=== PATIENT | male | born 1940 | race Caucasian/White ===

== ENCOUNTER 2017-09-03 15:53 | Emergency (ER) | payer OTHER ==
--- OUTSIDE RECORDS SUMMARY | 2017-09-03 15:55 | XMS REPORT | Clinical Summary ---
:1940 Author Organization [facility] Address [address] [place] [address] Care Team Providers Name Role Phone Asked, No Pcp Primary Care Provider Unavailable Allergies Active Allergy Reactions Severity Noted Date Comments Amoxicillin Shortness Of Breath High 04/21/2017 Aspirin Shortness Of Breath High 04/21/2017 Caffeine Shortness Of Breath High 04/21/2017 Cephalexin Anaphylaxis High 04/21/2017 Codeine Rash Low 04/21/2017 Colchicine Anaphylaxis High 04/21/2017 Dihydrocodeine Shortness Of Breath High 04/21/2017 Hydrocortisone Acetate Anaphylaxis High 04/21/2017 Ibuprofen Anaphylaxis High 04/21/2017 Iodine And Iodide Containing Swelling 04/21/2017 Products Sulfa (Sulfonamide Antibiotics) Itching 04/21/2017 Current Medications Prescription Sig. Disp. Refills Start Date End Date Status cyclobenzaprine Take 10 mg by Active (FLEXERIL) 10 mg mouth 3 tablet (three) times a day. tamsulosin (FLOMAX) Take 0.4 mg by Active 0.4 mg mouth daily. capsule,extended release 24hr potassium chloride Take 20 mEq by Active (KLOR-CON) 20 mEq mouth 2 (two) packet times a day. furosemide (LASIX) 40 Take 80 mg by Active mg tablet mouth 2 (two) times a day. pravastatin Take 40 mg by Active (PRAVACHOL) 40 MG mouth daily. tablet pantoprazole Take 40 mg by Active (PROTONIX) 40 MG EC mouth daily. tablet levothyroxine Take 137 mcg Active (SYNTHROID, LEVOXYL) by mouth every 137 mcg tablet morning. liraglutide (VICTOZA) Inject 0.6 mg Active 0.6 mg/0.1 mL (18 under the skin mg/3 mL) pen injector daily with breakfast. rivaroxaban (XARELTO) Take 15 mg by Active 15 mg tablet mouth daily. allopurinol Take 200 mg by Active (ZYLOPRIM) 100 MG mouth 2 (two) tablet times a day. glyBURIDE (DIABETA) 5 Take 10 mg by Discontinued MG tablet mouth 2 (two) 7 times a day. diltiazem CD Take 180 mg by Discontinued (CardIZEM CD) 180 MG mouth daily. 7 24 hr capsule traMADol (ULTRAM) 50 Take 0.5 20 tablet 0 04/27/2017 mg tablet tablets (25 mg 7 total) by mouth every 6 (six) hours as needed for moderate pain for up to 14 days. sacubitril-valsartan Take 1 tablet 60 tablet 0 04/27/2017 (ENTRESTO) 24-26 mg by mouth 2 8 tablet per tablet (two) times a day for 30 days. glipiZIDE (GLUCOTROL) Take 1 tablet 60 tablet 0 04/27/2017 2.5 MG 24 hr tablet (2.5 mg total) 8 by mouth 2 (two) times a day for 30 days. metoprolol succinate Take 1 tablet 30 tablet 0 04/28/2017 XL (TOPROL-XL) 50 mg (50 mg total) 8 24 hr tablet by mouth daily for 30 days. spironolactone Take 1 tablet 30 tablet 0 04/28/2017 (ALDACTONE) 50 MG (50 mg total) 8 tablet by mouth daily for 30 days. Active Problems Problem Noted Date Arrhythmia 04/21/2017 CHF (congestive heart failure) 04/21/2017 COPD (chronic obstructive pulmonary disease) 04/21/2017 Chronic kidney disease 04/21/2017 Type 2 diabetes mellitus 04/21/2017 Disease of thyroid gland 04/21/2017 Hypertension 04/21/2017 Ventricular arrhythmia 04/21/2017 BPH (benign prostatic hyperplasia) 04/15/2017 Ventricular tachycardia 04/15/2017 Cardiomegaly 04/15/2017 Encounters Date Type Specialty Care Team Description 06/16/2017 Procedure Pass Procedural Cardiology 06/08/2017 Procedure Pass Procedural Cardiology 04/22/2017 Anesthesia Event Procedural Andre Barton CRNA 04/22/2017 Procedure Pass Procedural Cardiology 04/22/2017 Surgery Procedural Kem Angeles aicd implant Cardiology MD Gene single dual bi vent [[id number] ([id number])] 04/21/2017 - Hospital Encounter Cardiology Lorne Ibarra 04/27/2017 MD Kelly after 09/02/2016 Family History Medical History Relation Name Comments Hypertension Father Stroke Mother Diabetes Sister Relation Name Status Comments Father Mother Alive Sister Alive Social History Tobacco Use Types Packs/Day Years Used Date Never Smoker Smokeless Tobacco: Never Used Tobacco Cessation: Counseling Given: No Alcohol Use Drinks/Week oz/Week Comments No Sex Assigned at Date Recorded Not on file Last Filed Vital Signs Vital Sign Reading Time Taken Blood Pressure 138/74 04/27/2017 11:55 AM TRAIN BRAKE OPERATOR Pulse 57 04/27/2017 11:55 AM TRAIN BRAKE OPERATOR Temperature 35.8 C (96.4 F) 04/27/2017 11:55 AM TRAIN BRAKE OPERATOR Respiratory Rate 18 04/27/2017 11:55 AM TRAIN BRAKE OPERATOR Oxygen Saturation 91% 04/27/2017 11:55 AM TRAIN BRAKE OPERATOR Inhaled Oxygen Concentration - - Weight 106 kg (234 lb) 04/27/2017 4:05 AM TRAIN BRAKE OPERATOR Height 172.7 cm (5' 8") 04/21/2017 5:45 PM TRAIN BRAKE OPERATOR Body Mass Index 35.58 04/27/2017 4:05 AM TRAIN BRAKE OPERATOR Plan of Treatment Health Maintenance Due Date Last Done Comments FOOT EXAM 02/07/1950 OPHTHALMOLOGY EXAM 02/07/1950 URINE MICROALBUMIN 02/07/1952 COLONOSCOPY 02/07/1992 ZOSTER VACCINE 2002 PNEUMOCOCCAL POLYSACCHARIDE VACCINE AGE 65 AND OVER 2007 PNEUMOCOCCAL-13 2007 INFLUENZA VACCINE 12/21/2017 Implants Implanted Type Area Manager Lvn Device Expiration Model / Identifier Date Serial / Lot Med Lead [id number] - [id number] - [id number] Cardiac Pacing N/A: [employer] CRM 01/05/2019 [id number] / Implanted: Qty: 1 on 04/22/2017 by Kem Angeles Jr., MD Leads or N/A [employer] [id number] / Electrodes or [id number] Accessories Visia Af Mri Surescan Vr Device - [id number] Defibrillator N/A: [employer] EDDY [id number] / Implanted: Qty: 1 on 04/22/2017 by Kem Angeles Jr., MD ICD Devices N/A [employer] / Procedures Procedure Name Priority Date/Time Associated Diagnosis Comments EP AICD IMPLANT Routine 04/22/2017 12:40 PM Results for this SINGLE DUAL BI VENT TRAIN BRAKE OPERATOR procedure are in the results section. after 09/02/2016 Results POC glucose (04/27/2017 11:56 AM)Only the most recent of19 resultswithin the time period is included. Component Value Ref Range POC glucose 164 (H) 65 - 99 mg/dL Comment: [facility] Notified RN Meter ID: [id number] Sales Donor Recruitment Representative: Ned Kimble Specimen Performing Laboratory [facility] DEPARTMENT OF PATHOLOGY AND GENOMIC MEDICINE [address] [place] [id number] XR Chest 1 Vw Portable (04/26/2017 5:26 PM)Only the most recent of3 resultswithin the time period is included. Specimen Performing Laboratory [facility] [address] [place] [address] Narrative EXAMINATION:XR CHEST 1 VW PORTABLE CLINICAL HISTORY:SHORTNESS OF BREATH COMPARISON:04/22/2017 IMPRESSION: Vascular congestion and pulmonary edema have improved. There is some residual edema or atelectasis in the left lower lobe. There may be small residual bilateral pleural effusions. Cardiomediastinal silhouette and bones are stable. Defibrillator is unchanged. [facility]-[id number] Procedure Note Interface, Radiology Results Incoming - 04/26/2017 5:32 PM TRAIN BRAKE OPERATOR EXAMINATION: XR CHEST 1 VW PORTABLE CLINICAL HISTORY: SHORTNESS OF BREATH COMPARISON: 04/22/2017 IMPRESSION: Vascular congestion and pulmonary edema have improved. There is some residual edema or atelectasis in the left lower lobe. There may be small residual bilateral pleural effusions. Cardiomediastinal silhouette and bones are stable. Defibrillator is unchanged. [facility]-[id number] CBC with platelet and differential (04/24/2017 4:30 AM)Only the most recent of2 resultswithin the time period is included. Component Value Ref Range WBC 10.80 4.50 - 11.00 k/uL RBC 4.45 4.40 - 6.00 m/uL HGB 13.3 (L) 14.0 - 18.0 g/dL HCT 40.1 (L) 41.0 - 51.0 % MCV 90.1 82.0 - 100.0 fL MCH 29.9 27.0 - 34.0 pg MCHC 33.2 31.0 - 37.0 g/dL RDW - SD 45.3 37.0 - 55.0 fL MPV 9.9 8.8 - 13.2 fL Platelet count 229 150 - 400 k/uL Nucleated RBC 0.00 /100 WBC Neutrophils 76.6 (H) 39.0 - 69.0 % Lymphocytes 8.7 (L) 25.0 - 45.0 % Monocytes 11.2 (H) 0.0 - 10.0 % Eosinophils 2.6 0.0 - 5.0 % Basophils 0.4 0.0 - 1.0 % Immature granulocytes 0.5Comment: "Immature granulocytes" 0.0 - 1.0 % (promyelocytes, myelocytes, metamyelocytes) Specimen Performing Laboratory Blood [facility] DEPARTMENT OF PATHOLOGY AND GENOMIC MEDICINE [address] [place] [id number] ECG 12 lead (04/24/2017 4:16 AM) Component Value Ref Range Ventricular rate 79 Atrial rate 50 QRSD interval 104 QT interval 432 QTC interval 495 QRS axis 1 -55 T wave axis 86 EKG impression Atrial fibrillation with premature ventricular or aberrantly conducted complexes-Left anterior fascicular block-Prolonged QT-Abnormal ECG-- Specimen Performing Laboratory [facility] [address] [place] [address] Estimated GFR (04/24/2017 3:49 AM)Only the most recent of3 resultswithin the time period is included. Component Value Ref Range GFR Non Af Amer 37 (A) mL/min/1.73 m2 GFR Af Amer 45 (A) mL/min/1.73 m2 Comment: Chronic kidney disease: <60 mL/min/1.73m2 Kidney failure: <15 mL/min/1.73m2 The estimated GFR is calculated from the IDMS-traceable Modification of Diet in Renal Disease Equation. The accuracy of the calculation is poor when the creatinine is normal. Calculated values >90 mL/min/1.73m2 are not reported. This equation has not been validated in children (<18 years), women, the elderly (>70 years), or ethnic groups other than Caucasians and Americans. Specimen Performing Laboratory Plasma specimen [facility] DEPARTMENT OF PATHOLOGY AND GENOMIC MEDICINE [address] [place] [address] Phosphorus level (04/24/2017 3:49 AM)Only the most recent of2 resultswithin the time period is included. Component Value Ref Range Phosphorus 2.5 2.4 - 4.5 mg/dL Specimen Performing Laboratory Plasma specimen [facility] DEPARTMENT OF PATHOLOGY AND [address] [address] Magnesium level (04/24/2017 3:49 AM)Only the most recent of2 resultswithin the time period is included. Component Value Ref Range Magnesium 1.7 1.6 - 2.4 mg/dL Specimen Performing Laboratory Plasma specimen [facility] DEPARTMENT PATHOLOGY AND [address] [address] Basic metabolic panel (04/24/2017 3:49 AM)Only the most recent of2 resultswithin the time period is included. Component Value Ref Range Sodium 136 135 - 148 mEq/L Potassium 4.0 3.5 - 5.0 mEq/L Chloride 94 (L) 98 - 112 mEq/L CO2 29 24 - 31 mEq/L Anion gap 13 7 - 15 mEq/L Comment: Starting from August , anion gap calculation no longer incorporates potassium. Please note the change. BUN 31 (H) 8 - 23 mg/dL Creatinine 1.8 (H) 0.7 - 1.2 mg/dL Glucose 158 (H) 65 - 99 mg/dL Calcium 10.2 8.8 - 10.2 mg/dL Specimen Performing Laboratory Plasma specimen [facility] DEPARTMENT OF PATHOLOGY AND [address] [address] Potassium level (04/23/2017 12:33 PM) Component Value Ref Range Potassium 3.7 3.5 - 5.0 mEq/L Specimen Performing Laboratory Plasma specimen [facility] DEPARTMENT OF PATHOLOGY AND [facility] MEDICINE [address] [place] [address] B natriuretic peptide (04/23/2017 11:00 AM)Only the most recent of2 resultswithin the time period is included. Component Value Ref Range BNP 183 (H) 0 - 100 pg/mL Specimen Performing Laboratory Blood [facility] DEPARTMENT OF PATHOLOGY AND [facility] MEDICINE [address] [place] [address] Narrative RECOLLECT FOR K NOTIFIED LUCIA MONTERO AT106/24/2016 1204 BY AU ECG Pre/Post Op-Tomorrow (04/23/2017 8:04 AM)Only the most recent of2 resultswithin the time period is included. Component Value Ref Range Ventricular rate 71 Atrial rate 127 QRSD interval 104 QT interval 430 QTC interval 467 QRS axis 1 -43 T wave axis 42 EKG impression Atrial fibrillation-Left axis deviation-Abnormal ECG-In automated comparison with ECG of 22-APR-2017 11:01,-Previous ECG has undetermined rhythm, needs review-Nonspecific T wave abnormality no longer ev ident in Inferior leads- Specimen Performing Laboratory [facility] [address] [place] [address] Cv electrophysiology procedure (04/22/2017 12:40 PM) Specimen Performing Laboratory [facility] [address] [place] [address] Narrative TITLE: Single chamber defibrillator. 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 3.Obesity. 4.Chronic obstructive pulmonary disease. 5.Chronic atrial fibrillation. 6.Diabetes mellitus. POSTOPERATIVE DIAGNOSES: 1.Sustained monomorphic ventricular tachycardia. 2.Nonischemic dilated cardiomyopathy. 3.Obesity. 4.Chronic obstructive pulmonary disease. 5.Chronic atrial fibrillation. 6.Diabetes mellitus. PROCEDURE PERFORMED: 1.Monitored anesthesia care. 2.Single chamber defibrillator placement. BRIEF HISTORY AND CLINICAL BACKGROUND: This is a 77-year-old man who was admitted to [facility] for sustained wide complex tachycardia that appeared to be ventricular in origin. He was treated with intravenous amiodarone.He underwent heart catheterization showing ectatic coronary arteries, but no obstructive coronary disease. Ejection fraction by echo was 20%.He was transferred yesterday for defibrillator system implantation.The VT has a cycle length of 300 msec and has a QS complex in lead V1 and a RS in lead V6 with a left axis deviation.The patient was taking Xarelto, but had not received this since his hospitalization in [place].After a thoughtful consideration of his options understanding he could take that a defibrillator was considered optimal therapy he has consented to this as opposed to taking oral medications like amiodarone. PROCEDURE: The patient was taken to the Electrophysiology Laboratory in the postabsorptive-nonsedated state and was placed on a fluoroscopy table. The position of the external defibrillation pads over the heart was confirmed using fluoroscopy. The chest was prepped and draped in the usual sterile fashion. Local anesthesia was achieved with 1% lidocaine.Intravenous conscious sedation using intravenous Versed, Fentanyl, and Phenergan, was provided as necessary. An upper extremity venogram was performed, and during the venogram, access to the axillary vein was achieved.A soft-tipped J-wire was advanced into the venous system.A pocket was then made below the plane of the pectoralis fascia using a scalpel, cautery, and blunt dissection.Using the [id number]-jmpu technique and an introducer sheath, a defibrillation lead was advanced to the right ventricular apex and the fixation mechanism was deployed. Pacing and sensing thresholds were then evaluated.After they were found to be adequate, maximum output pacing was performed to test for diaphragmatic stimulation, and none was seen. The lead was sutured to the pectoral muscle using 0 Ethibond sutures tied over the lead collar.The pocket was visually, manually, and radiographically, inspected to ensure there were no gauze or sponges in the pocket.The pocket was then washed using an antibiotic solution. After washing was complete, gloves were changed and fresh sterile drapes were placed and a defibrillator was unpacked.The defibrillator was then attached to the lead and the set screws were tightened and the leads were gently pulled upon to ensure they were affixed within the device header.The generator and lead slack were placed into the pocket.The device was sutured to the muscle using an 0-ethibond suture through the suture hole in the header. Defibrillation threshold testing was then performed.After the Defibrillation Safety Threshold was found to be satisfactory, the incision was closed in layers using running 0-vicryl suture for 2 layers followed by jim and skin adhesive. COMPLICATIONS: None. FINDINGS: 1.Estimated blood loss less than 10 mL. 2.The right ventricular apical defibrillation lead is a Medtronic [id number], 62 cm, serial #[id number] vector, measured R-wave 6 millivolts, pacing threshold 0.7 volt, impedance 546 ohms. 3.Defibrillator is a Medtronic Visia model JRKG5S2, serial number [id number]. 4.Defibrillation Safety threshold testing was not performed because the patient has chronic atrial fibrillation and has been off therapeutic anticoagulation for approximately 8 days. CONCLUSIONS: Successful ICD insertion. RECOMMENDATIONS: Initiate Eliquis at the time of discharge tomorrow and bring back as an outpatient for DFT testing in 4 to 6 weeks. Partial thromboplastin time, activated (04/22/2017 4:22 AM) Component Value Ref Range PTT 40.8 (H) 23.0 - 36.0 sec Comment: PTT therapeutic range for unfractionated heparin is 61.0-112.0 seconds which corresponds to Anti-Xa 0.3-0.7 U/ml. Specimen Performing Laboratory Blood [facility] DEPARTMENT OF PATHOLOGY AND [facility] MEDICINE [address] [place] [address] Prothrombin time with INR (04/22/2017 4:22 AM) Component Value Ref Range Prothrombin time 17.8 (H) 12.0 - 15.0 sec INR 1.4 Comment: The International Normalized Ratio (INR) is a therapeutic monitoring tool for patients who are stable on oral anticoagulant therapy. An INR of 2.0-3.0 is suggested for deep vein thrombosis/pulmonary embolism. Specimen Performing Laboratory Blood [facility] DEPARTMENT OF PATHOLOGY AND [facility] MEDICINE [address] [place] [address] Thyroid stimulating hormone (04/22/2017 4:22 AM) Component Value Ref Range TSH 2.49 0.27 - 4.20 uIU/mL Specimen Performing Laboratory Plasma specimen [facility] DEPARTMENT OF PATHOLOGY AND [facility] MEDICINE [address] [place] [address] Prealbumin level (04/22/2017 4:22 AM) Component Value Ref Range Prealbumin 12 (L) 16 - 32 mg/dL Specimen Performing Laboratory Serum [facility] DEPARTMENT OF PATHOLOGY AND [facility] MEDICINE [address] [place] [address] Comprehensive metabolic panel (04/22/2017 4:22 AM) Component Value Ref Range Sodium 137 135 - 148 mEq/L Potassium 3.8 3.5 - 5.0 mEq/L Chloride 94 (L) 98 - 112 mEq/L CO2 26 24 - 31 mEq/L Anion gap 17 (H) 7 - 15 mEq/L Comment: Starting from August , anion gap calculation no longer incorporates potassium. Please note the change. BUN 33 (H) 8 - 23 mg/dL Creatinine 1.8 (H) 0.7 - 1.2 mg/dL Glucose 148 (H) 65 - 99 mg/dL Calcium 10.1 8.8 - 10.2 mg/dL Protein 6.7 6.3 - 8.3 g/dL Comment: 4.6-7.0 g/dL 1 week 4.4-7.6 g/dL 7 months-1year5.1-7.3 g/dL 1-2 years5.6-7.5 g/dL >3 years6.0-8.0 g/dL 18-150 6.3-8.3 g/dL Albumin 2.6 (L) 3.5 - 5.0 g/dL A/G ratio 0.6 (L) 0.7 - 3.8 Alkaline phosphatase 63 40 - 129 U/L AST 13 10 - 50 U/L ALT 21 5 - 50 U/L Total bilirubin 0.9 0.0 - 1.2 mg/dL Specimen Performing Laboratory Plasma specimen [facility] DEPARTMENT OF PATHOLOGY AND GENOMIC MEDICINE [address] [place] [address] XR Chest 2 Vw (04/21/2017 10:13 PM) Specimen Performing Laboratory [facility] [address] [place] [address] Narrative EXAMINATION:XR CHEST 2 VW CLINICAL HISTORY:Cardiomyopathy COMPARISON:To previous study from 04/21/2017 IMPRESSION: Cardiac mediastinal silhouette is prominent and pulmonary vessels are prominent. [facility]-[id number] Procedure Note Interface, Radiology Results Incoming - 04/21/2017 10:24 PM TRAIN BRAKE OPERATOR EXAMINATION: XR CHEST 2 VW CLINICAL HISTORY: Cardiomyopathy COMPARISON: To previous study from 04/21/2017 IMPRESSION: Cardiac mediastinal silhouette is prominent and pulmonary vessels are prominent. [facility]-[id number] after 09/02/2016 Insurance Payer Benefit Plan / Group Subscriber ID Type Phone Address [employer]NA MEDICARE AETNA MEDICARE HMO/PPO [facility] xxxxxxxx HMO Home: Katrina Langford y [phone] [address]
[2017-09-03] MEDS ORDERED: ACETAMINOPHEN 500 MG TAB ONE (16:19)
[2017-09-03] MEDS ORDERED: LIDOCAINE 1% MPF 5 ML VIAL ONE (16:19)
[2017-09-03] MEDS ORDERED: TETANUS & DIPHTHERIA TOX,ADULT 0.5 ML VIAL ONE (16:20)
--- NOTE | 2017-09-03 16:40 | ER ---
Nurse's Notes [facility] Name: Ketan Feng Age: 77 yrs Sex: Male : 1940 Arrival Date: 09/03/2017 Time: 15:57 Bed 19 Private MD: Diagnosis: Laceration without foreign body of lip Presentation: 09/03 16:02 Presenting complaint: Patient states: I was holding the dog in my lap and it got scared la1 and tried to throw his head back and hit me in the top lip with his head. laceration noted to top lip, bleeding controlled. Transition of care: patient was not received from another setting of care. Complicating Factors: There are no complicating factors for this patient. Onset of symptoms was September 03, 2017. Care prior to arrival: None. 16:02 Method Of Arrival: Wheelchair la1 16:02 Acuity: GARY 4 la1 Historical: - Allergies: 16:03 Augmentin; la1 16:03 Codeine; la1 16:03 Iodine; la1 16:03 Phenobarbital; la1 16:03 Sulfa (Sulfonamide Antibiotics); la1 16:03 Synalgos-DC; la1 - PMHx: 16:03 Atrial Fib; CHF; COPD; Gout; High Cholesterol; Kidney Failure Stage III; urinary la1 retention; - Immunization history:: Adult Immunizations up to date. - Social history:: Smoking status: Patient/guardian denies using tobacco. Screenin:41 Abuse screen: Denies threats or abuse. Nutritional screening: No deficits noted. em Tuberculosis screening: No symptoms or risk factors identified. Fall Risk None identified. Assessment: 16:14 General: Appears in no apparent distress. comfortable, Behavior is calm, cooperative. em General: Reports dogs head hit him in the right upper lip, laceration noted, bleeding controlled. Pain: Complains of pain in upper vermilion border. Neuro: Level of Consciousness is awake, alert, obeys commands, Oriented to person, place, time, situation. Cardiovascular: Capillary refill < 3 seconds Patient's skin is warm and dry. Respiratory: Airway is patent Respiratory effort is even, unlabored, Respiratory pattern is regular, symmetrical. GI: Abdomen is round non-distended. : No signs and/or symptoms were reported regarding the genitourinary system. EENT: Oral mucosa is moist. Derm: Skin is intact, Skin is pink, warm \T\ dry. Musculoskeletal: Range of motion: intact in all extremities. Injury Description: Laceration sustained to upper vermilion border is clean, 0.5 to 2.5 cm long, not bleeding, was sustained 30-60 minutes ago. is bleeding a small amount. 16:29 Reassessment: I agree with above assessment by Doron Sandy LVN. iw Vital Signs: 16:03 BP 150 / 100; Pulse 89; Resp 15; Temp 98.4; Pulse Ox 100% on R/A; Weight 105.69 kg; la1 Height 5 ft. 8 in. (172.72 cm); 16:03 Body Mass Index 35.43 (105.69 kg, 172.72 cm) la1 ED Course: 15:57 Patient arrived in ED. tw3 16:03 Triage completed. la1 16:04 Lucila Aguilera FNP-C [facility]. kb 16:04 Myles Wu MD is Attending Physician. kb 16:04 Arm band placed on left wrist. la1 16:05 Doron Sandy LVN is Primary Nurse. em 16:41 Patient has correct armband on for positive identification. Bed in low position. Call em light in reach. Side rails up X2. Adult w/ patient. 16:41 Assist provider with laceration repair on upper vermilion border that was 2.5 cm. or em less using sutures. Set up tray. Performed by Lucila DE LEON Patient tolerated well. Patient did not have IV access during this emergency room visit. Administered Medications: 16:35 Drug: Lidocaine (1 %) 1 vials {Note: administered by BLAINE Gaytan.} Volume: 5 ml; Route: em Infiltration; 16:52 Follow up: Response: No adverse reaction em 16:51 Drug: Tetanus-Diphtheria Toxoid Adult 0.5 ml {Elastic Yarn Twister: [employer] Exp: em 12/23/2019. Lot #: [id number]. } Route: IM; Site: right deltoid; 16:52 Follow up: Response: Medication administered at discharge. em Outcome: 16:40 Discharge ordered by . kb 17:00 Discharged to home ambulatory. em 17:00 Condition: good 17:00 Discharge instructions given to patient, Instructed on discharge instructions, follow up and referral plans. Demonstrated understanding of instructions, follow-up care. 17:04 Patient left the ED. iw Signatures: Lucila Aguilera, LO-C REDUCTION FURNACE OPERATOR-Doron Benavides, KEREN BACK UP MACHINE OPERATOR Yamileth Xiao, RN ASIA iw Rickey Pang RN RN la1 Hector, Juliette tw3 Corrections: (The following items were deleted from the chart) 16:06 16:02 Presenting complaint: Patient states: I was holding the dog in my lap and it got la1 scared and tried to throw his head back and hit me in the top hip with his head. laceration noted to top lip, bleeding controlled la1 09/04 07:27 04 16:41 No provider procedures requiring assistance completed. em em
--- NOTE | 2017-09-03 16:40 | EDPHYS ---
Physician Documentation [facility] Name: Ketan Feng Age: 77 yrs Sex: Male : 1940 Arrival Date: 09/03/2017 Time: 15:57 Bed 19 Private MD: ED Physician Myles Wu HPI: 09/03 16:12 This 77 yrs old Male presents to ER via Wheelchair with complaints of kb Laceration To Lip. 16:12 The patient has a laceration related to: playing with dog, dog threw his head back and kb hit pt in the mouth occurred at home, and there are no complicating factors. The injury was accidental. The laceration(s) is(are) located on the upper vermilion border. Onset: The symptoms/episode began/occurred just prior to arrival. Associated signs and symptoms: The patient has no apparent associated signs or symptoms. The patient has not experienced similar symptoms in the past. The patient has not recently seen a physician. Historical: - Allergies: 16:03 Augmentin; la1 16:03 Codeine; la1 16:03 Iodine; la1 16:03 Phenobarbital; la1 16:03 Sulfa (Sulfonamide Antibiotics); la1 16:03 Synalgos-DC; la1 - PMHx: 16:03 Atrial Fib; CHF; COPD; Gout; High Cholesterol; Kidney Failure Stage III; urinary la1 retention; - Immunization history:: Adult Immunizations up to date. - Social history:: Smoking status: Patient/guardian denies using tobacco. ROS: 16:10 Constitutional: Negative for fever, chills, and weight loss, Cardiovascular: Negative kb for chest pain, palpitations, and edema, Respiratory: Negative for shortness of breath, cough, wheezing, and pleuritic chest pain, Abdomen/GI: Negative for abdominal pain, nausea, vomiting, diarrhea, and constipation, MS/Extremity: Negative for injury and deformity, Neuro: Negative for headache, weakness, numbness, tingling, and seizure. 16:10 Skin: Positive for laceration(s), of the upper vermilion border. Exam: 16:10 Constitutional: This is a well developed, well nourished patient who is awake, alert, kb and in no acute distress. Chest/axilla: Normal chest wall appearance and motion. Nontender with no deformity. No lesions are appreciated. Cardiovascular: Regular rate and rhythm with a normal S1 and S2. No gallops, murmurs, or rubs. Normal PMI, no JVD. No pulse deficits. Respiratory: Lungs have equal breath sounds bilaterally, clear to auscultation and percussion. No rales, rhonchi or wheezes noted. No increased work of breathing, no retractions or nasal flaring. Abdomen/GI: Soft, non-tender, with normal bowel sounds. No distension or tympany. No guarding or rebound. No evidence of tenderness throughout. MS/ Extremity: Pulses equal, no cyanosis. Neurovascular intact. Full, normal range of motion. Neuro: Awake and alert, GCS 15, oriented to person, place, time, and situation. Cranial nerves II-XII grossly intact. Motor strength 5/5 in all extremities. Sensory grossly intact. Cerebellar exam normal. Normal gait. 16:10 Head/face: Noted is no obvious of injury or deformity except a laceration(s), that is superficial, 4 cm(s), of the upper vermilion border. Vital Signs: 16:03 BP 150 / 100; Pulse 89; Resp 15; Temp 98.4; Pulse Ox 100% on R/A; Weight 105.69 kg; la1 Height 5 ft. 8 in. (172.72 cm); 16:03 Body Mass Index 35.43 (105.69 kg, 172.72 cm) la1 Laceration: 16:38 Wound Repair of 3cm ( 1.2in ) subcutaneous laceration to upper vermilion border. Linear kb shaped.. Distal neuro/vascular/tendon intact. Anesthesia: Wound infiltrated with 2.5 mls of 1% lidocaine. Wound prep: Moderate cleansing by me, Wound irrigation with saline by me. Skin closed with 4 6-0 Prolene using interrupted sutures and sterile technique. Dressed with Neosporin. Patient tolerated well. MDM: 16:04 Patient medically screened. kb 16:10 Data reviewed: vital signs, nurses notes. Data interpreted: Pulse oximetry: on room air kb is 100 %. Interpretation: normal. Counseling: I had a detailed discussion with the patient and/or guardian regarding: the historical points, exam findings, and any diagnostic results supporting the discharge/admit diagnosis, the need for outpatient follow up, a family practitioner, to return to the emergency department if symptoms worsen or persist or if there are any questions or concerns that arise at home. 09/03 16:13 Order name: Prolene, Sutures; Complete Time: 16:23 kb 09/03 16:13 Order name: Dressing - Wound; Complete Time: 16:24 kb 09/03 16:13 Order name: Gloves, Sterile; Complete Time: 16:24 kb 09/03 16:13 Order name: Setup Suture Tray; Complete Time: 16:24 kb Administered Medications: 16:35 Drug: Lidocaine (1 %) 1 vials {Note: administered by BLAINE Gaytan.} Volume: 5 ml; Route: em Infiltration; 16:52 Follow up: Response: No adverse reaction em 16:51 Drug: Tetanus-Diphtheria Toxoid Adult 0.5 ml {Rubber Tile Floor Layer: [employer]. Exp: em 12/23/2019. Lot #: [id number]. } Route: IM; Site: right deltoid; 16:52 Follow up: Response: Medication administered at discharge. em Disposition: 17:05 Co-signature as Attending Physician, Myles Wu MD I agree with the assessment and kdr plan of care. Disposition: 09/03/17 16:40 Discharged to Home. Impression: Laceration without foreign body of lip. - Condition is Stable. - Discharge Instructions: Mouth Laceration, [id number]. - Medication Reconciliation Form, Thank You Letter, Antibiotic Education, Prescription Opioid Use form. - Follow up: Emergency Department; When: As needed; Reason: Worsening of condition. Follow up: Private Physician; When: 2 - 3 days; Reason: Recheck today's complaints, Continuance of care, Re-evaluation by your physician. Signatures: Lucila Aguilera, DELIVERY DRIVER/SUPERVISOR-C DELIVERY DRIVER/SUPERVISOR-CkMyles Dobson MD MD kdr Munoz, Edgar, SPEECH CORRECTION ASSISTANT SPEECH CORRECTION ASSISTANT em Yamileth Pugh, Rickey Kearney RN, RN RN la1
[2017-09-03 17:09] VITALS: BP 150/100; TEMP 98.4; O2SAT 100
== END 2017-09-03 17:04 | disposition home or self-care (01) ==
LOC: ER 15:53
PROC: 0CQ0XZZ Repair Upper Lip, External Approach (ICD-10-PCS; principal; 2017-09-03)
DX: S01.511A Laceration without foreign body of lip, initial encounter (principal); W54.1XXA Struck by dog, initial encounter; Y93.89 Activity, other specified; Y92.009 Unspecified place in unspecified non-institutional (private) residence as the place of occurrence of the external cause; N18.3 Chronic kidney disease, stage 3 (moderate); Z88.1 Allergy status to other antibiotic agents; Z88.2 Allergy status to sulfonamides; Z88.5 Allergy status to narcotic agent; Z88.8 Allergy status to other drugs, medicaments and biological substances; Z91.048 Other nonmedicinal substance allergy status; Z23 Encounter for immunization
CPT/HCPCS: 90714; 99283

== ENCOUNTER 2019-05-08 16:46 | Emergency (ER) | payer OTHER ==
--- OUTSIDE RECORDS SUMMARY | 2019-05-08 16:48 | XMS REPORT ---
:1940 Author Organization [employer] Care Team Providers Name Role Phone Adolfo Cardona Provider Role Unavailable Allergies No Known Allergies Problems Problem Type Condition Code Onset Dates Condition Status Assessment Mild intermittent asthma with acute J45.21 Active exacerbation Problem Benign prostatic hypertrophy N40.0 Active Problem Obstructive sleep apnea G47.33 Active Problem Aortic valve regurgitation I35.1 Active Problem Systolic congestive heart failure I50.20 Active Problem Chronic a-fib I48.2 Active Problem Tricuspid valve regurgitation I07.1 Active Problem Hyperlipidemia, mixed E78.2 Active Problem Atopic dermatitis L20.9 Active Problem Vitamin D deficiency disease E55.9 Active Problem Secondary hyperparathyroidism N25.81 Active Problem Depression F32.9 Active Problem Gout M10.9 Active Problem Memory loss or impairment R41.3 Active Problem Gastroesophageal reflux disease K21.9 Active Problem Asthma with COPD (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 obstructive pulmonary disease) Problem Erectile dysfunction, unspecified N52.9 Active erectile dysfunction type Problem Mild intermittent asthma with acute J45.21 Active exacerbation Problem Allergic rhinitis, unspecified J30.9 Active seasonality, unspecified trigger Problem Chronic kidney disease, stage 3 N18.3 Active (moderate) Problem Renal disease N28.9 Active Problem Hypothyroidism E03.9 Active Problem Hypertension I10 Active Problem 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 Problem Uncontrolled type 2 diabetes E11.65 Active mellitus with hyperglycemia, without long-term current use of insulin Problem Proteinuria, unspecified R80.9 Active Problem Type 2 diabetes mellitus with other E11.29 Active diabetic kidney complication Medications Medication Code Code Instructions Start End Date Status Dosage System Date Ventolin HFA [facility] [id number] 108 (90 Base) Jul 04, Active 2 puffs as MCG/ACT 2019 needed Inhalation every 6 hrs PRN Cough, Shortness of Breath and wheezing Results No Known Results Summary Purpose [employer] Submission
--- OUTSIDE RECORDS SUMMARY | 2019-05-08 16:48 | XMS REPORT ---
:1940 Author Organization [employer] Care Team Providers Name Role Phone Brendan Adolfo Provider Role Unavailable Allergies No Known Allergies Problems Problem Type Condition Code Onset Dates Condition Status Assessment Chronic kidney disease, stage 3 N18.3 Active (moderate) Problem Benign prostatic hypertrophy N40.0 Active Problem [...] Active diabetic kidney complication Medications Medication Code System Code Instructions Start End Date Status Dosage Date Bumetanide [facility] 99939525576 2 MG Orally twice Active take 0.5 a day tab Results No Known Results Summary Purpose eClinicalWorks Submission
--- OUTSIDE RECORDS SUMMARY | 2019-05-08 16:48 | XMS REPORT ---
:1940 Author Organization e[employer]Works Care Team Providers Name Role Phone Brendan Adolfo Provider Role Unavailable Allergies No Known Allergies Problems Problem Type Condition Code Onset Dates Condition Status Problem Benign prostatic hypertrophy N40.0 Active Problem [...] Medications Medication Code System Code Instructions Start Date End Date Status Dosage GlipiZIDE [facility] 97666486704 5 MG Inactive 0.5 TABLET ONCE A DAY ORALLY 90 Results No Known Results Summary Purpose e[employer]Works Submission
--- OUTSIDE RECORDS SUMMARY | 2019-05-08 16:48 | XMS REPORT ---
:1940 Author Organization eClinicalWorks Care Team Providers Name Role Phone CardonaAdolfo Provider Role Unavailable Allergies, Adverse Reactions, Alerts Substance Reaction Event Type Synalgos-DC Info Not Available Drug Allergy Phenobarbital Info Not Available Drug Allergy Levaquin Info Not Available Drug Allergy Keflex Info Not Available Drug Allergy Iodine Info Not Available Drug Allergy Ibuprofen Info Not Available Drug Allergy Hydrocodone-Acetaminophen Info Not Available Drug Allergy Colchicine Info Not Available Drug Allergy Augmentin Info Not Available Drug Allergy Problems Problem Type Condition Code Onset Dates Condition Status Assessment Upper respiratory tract infection, J06.9 Active unspecified type Assessment Acute non-recurrent maxillary J01.00 Active sinusitis Problem Benign prostatic hypertrophy N40.0 Active Problem [...] Medications Medication Code Code Instructions Start End Status Dosage System Date Date Pravastatin [facility] 65008021277 40 MG Orally Active 1 tablet Sodium Once a day Medrol [facility] 12039829479 4 MG Orally Apr 04Mar Active as directed use as 2018 Azithromycin [facility] 70621820456 250 MG Orally Apr 04Mar Active 2 tablets on Once a day 2018, the first 2019 day, then 1 tablet daily for 4 days Coreg [facility] 42222667190 3.125 MG Active as directed Orally Twice a day Symbicort [facility] 25360857435 160-4.5 Active 2 puffs MCG/ACT Inhalation Twice a day Levothyroxine [facility] 55940045830 137 MCG Active TAKE 1 TABLET Sodium DAILY IN THE MORNING ON AN EMPTY STOMACH (NEED APPOINTMENT FOR FURTHER REFILLS) Pravastatin [facility] 92383359383 40 MG Active TAKE 1 TABLET Sodium DAILY Xarelto [facility] 98889116384 15 MG Orally Active 1 tablet with Once a day food Bumetanide [facility] 25394403934 2 MG Orally Active take 0.5 tab twice a day Flomax [facility] 58486147614 0.4 MG Orally Active 1 capsule Once a day ProAir HFA [facility] 79747049503 108 (90 Base) Active 2 puffs as MCG/ACT needed Inhalation every 6 hrs Calcitriol [facility] 08481696122 0.5 MCG Orally Active 1 capsule Every 48 hours Pantoprazole [facility] 28973932409 40 MG Orally Active 1 tablet Sodium Once a day Xarelto [facility] 40168013368 15 MG Active TAKE 1 TABLET DAILY WITH FOOD Pantoprazole [facility] 40518147284 40 MG Orally Active 1 tablet Sodium Once a day Allopurinol [facility] 78005611314 100 MG Orally Active 2 tablets Once a day NovoFine Plus [facility] 89454553292 32G X 4 MM Active as directed Levothyroxine [facility] 87054756193 137 MCG Orally Active 1 tablet on Sodium Once a day an empty stomach in the morning GlipiZIDE ER [facility] 26666208178 2.5 MG Orally Feb 21, Active 1 tablet with BID 2018 breakfast Vitamin D3 [facility] 23958-33366 Active not defined Aspirin Adult [facility] 04666221929 81 MG Orally Active 1 tablet Low Dose Once a day Victoza [facility] 37464404133 18 MG/3ML Active not defined Subcutaneous Ventolin HFA [facility] 26574865039 108 (90 Base) Jul 04, Active 2 puffs as MCG/ACT 2019 needed Inhalation every 6 hrs PRN Cough, Shortness of Breath and wheezing Allopurinol [facility] [address]-32 100MG Orally Active TAKE 2 Once a day TABLETS ONCE DAILY Zyrtec Allergy [facility] 56428072377 10 MG Orally Active 1 tablet Once a day Victoza [facility] 48262314808 18 MG/3ML Active 0.6 mg Subcutaneous daily Results Name Result Date Reference Range Unit Abnormality Flag STREP A RAPID ----Result NEGATIVE [id number] FLU TEST A/B ----B Neg [id number] ----A Neg [id number] Summary Purpose eClinicalWorks Submission
--- NOTE | 2019-05-08 17:15 | RAD REPORT ---
EXAM DESCRIPTION: CT - Ct Stroke Brain Wo Cont - 05/08/2019 5:04 pm CLINICAL HISTORY: Aphasia, altered mental status, stroke-like symptoms COMPARISON: None. TECHNIQUE: Axial 5 millimeter thick images of the head were obtained without IV contrast. All CT scans are performed using dose optimization technique as appropriate and may include automated exposure control or mA/KV adjustment according to patient size. FINDINGS: No intracranial hemorrhage, mass, or cerebral edema. No acute infarction identifiable. No cortical edema or sulcal effacement. Patient does have underlying atrophy and chronic ischemic change . Ventricles are in proportion to the amount of volume loss. Yun matter-white matter differentiation is preserved. Arterial tree calcifications are present along with physiologic calcifications. Patient has a general fullness to the tip of the basilar artery. Aneurysm is not excluded. No suspicion for subarachnoid h emorrhage. Visualized portions of the mastoid air cells, paranasal sinuses, and orbits are unremarkable. Nelson painting telephoned to the referring physician 5:09 p.m. IMPRESSION: No intracranial hemorrhage. No acute cortical based infarction. Patient has atrophy and chronic ischemic change. Chronic ischemic change can potentially mask nonhemo rrhagic CVA. Fullness of the talus is a basilar is present. Aneurysm is not excluded. No subarachnoid hemorrhage c hanges. If patient is being admitted and a MR Stroke protocol study is contemplated, this would evaluate the basilar artery. Otherwise, follow-up outpatient MRA Head or CTA head with contrast could be performed for basilar assessment.
[2019-05-08 17:19] LABS: Absolute Lymphocytes (CBC) 1.4 K/uL (0.7-4.9); MPV 7.4 fL (7.6-11.3); RBC Red Blood Cell Count 4.23 M/uL (4.33-5.43)
[2019-05-08 17:26] LABS: Protime INR 1.34
[2019-05-08 17:34] LABS: Potassium 3.6 mmol/L (3.5-5.1)
--- NOTE | 2019-05-08 17:54 | RAD REPORT ---
EXAM DESCRIPTION: RAD - Chest Single View - 05/08/2019 5:49 pm CLINICAL HISTORY: Slurred speech, code stroke chest film COMPARISON: September 2018, February 2018 TECHNIQUE: AP portable chest image was obtained 1706 hours . FINDINGS: No peripheral mass or consolidation. No failure or volume overload. Pacemaker/defibrillato r is in place similar to comparison. Heart size is normal range and stable. No vascular engorgement. Patient has prominent right-sided diaphragmatic eventration. This has progressed over time since 2017. No measurable pleural effusion and no pneumothorax. No acute bony abnormality seen. No acut e aortic findings suspected. IMPRESSION: No acute cardiopulmonary process. 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 This is not an acute finding.
--- NOTE | 2019-05-08 17:57 | ER ---
Nurse's Notes [facility] Name: Ketan Feng Age: 79 yrs Sex: Male : 1940 Arrival Date: 05/08/2019 Time: 16:47 Bed 2 Private MD: Adolfo Cardona Diagnosis: Transient cerebral ischemic attack, unspecified Presentation: 05/08 16:51 Presenting complaint: states: "He went in the other room to feed my Anuradha and ss he started to tell me he wanted to get patterson turnovers and he just could not say it. He is usually sharp as a tack, this is not him. It started 20 minutes ago.". Transition of care: patient was not received from another setting of care. Onset of symptoms was May 08, 2019. Risk Assessment: Do you want to hurt yourself or someone else? Patient reports no desire to harm self or others. Initial Sepsis Screen: Does the patient meet any 2 criteria? No. Patient's initial sepsis screen is negative. Does the patient have a suspected source of infection? No. Patient's initial sepsis screen is negative. Care prior to arrival: None. 16:51 Method Of Arrival: Wheelchair ss 16:51 Acuity: GARY 2 ss Triage Assessment: 17:00 General: Appears in no apparent distress. comfortable, obese, Behavior is cooperative, bp appropriate for age, anxious. Pain: Denies pain. EENT: No deficits noted. Neuro: Level of Consciousness is awake, alert, obeys commands, Oriented to person, place, time, situation, Appropriate for age. Cardiovascular: Rhythm is atrial fibrillation. Respiratory: No deficits noted. GI: No signs and/or symptoms were reported involving the gastrointestinal system. : No signs and/or symptoms were reported regarding the genitourinary system. Derm: No deficits noted. Musculoskeletal: No deficits noted. Historical: - Allergies: 16:55 Augmentin; ss 16:55 Codeine; ss 16:55 Iodine; ss 16:55 Phenobarbital; ss 16:55 Sulfa (Sulfonamide Antibiotics); ss 16:55 Synalgos-DC; ss - PMHx: 16:55 Atrial Fib; CHF; COPD; Gout; High Cholesterol; Kidney Failure Stage III; urinary ss retention; - Immunization history:: Adult Immunizations up to date. - Social history:: Smoking status: Patient/guardian denies using tobacco, Patient/guardian denies using alcohol, street drugs, The patient lives with family. - Ebola Screening: : No symptoms or risks identified at this time. - Family history:: not pertinent. Screenin:55 VAN Screening: Arm Drift: Patient shows no arm weakness. Visual Disturbance: No visual ss disturbance noted. Aphasia: No aphasia noted. Neglect: No neglect noted. 16:59 Abuse screen: Denies threats or abuse. Denies injuries from another. Nutritional aa5 screening: No deficits noted. Tuberculosis screening: No symptoms or risk factors identified. Fall Risk No fall in past 12 months (0 pts). Secondary diagnosis (15 points) CVA, No IV (0 pts). Ambulatory Aid- None/Bed Rest/Nurse Assist (0 pts). Gait- Normal/Bed Rest/Wheelchair (0 pts) Mental Status- Oriented to own ability (0 pts). Total [place] Fall Scale indicates No Risk (0-24 pts). Assessment: 16:55 Reassessment: Pt reports that his L arm and L side of his face feels different, but is ss unable to describe the sensation. 16:56 General: CODE STROKE ACTIVATED. aa5 16:58 Reassessment: PT TO CT WITH RN. aa5 Vital Signs: 16:51 BP 151 / 97; Pulse 77; Resp 17; Temp 97.0(TE); Pulse Ox 96% on R/A; Weight 108.86 kg; ss Height 5 ft. 8 in. (172.72 cm); Pain 3/10; 17:47 BP 125 / 95; Pulse 64; Resp 11; Pulse Ox 98% on R/A; Pain 0/10; vc 18:18 BP 144 / 92; Pulse 63; Resp 16; Temp 98; Pulse Ox 96% ; bp 16:51 Body Mass Index 36.49 (108.86 kg, 172.72 cm) NIH Stroke Scale Scores: 17:00 NIHSS Score: 0 bp ED Course: 16:47 Patient arrived in ED. am2 16:48 Adolfo Cardona, DO is Private Physician. am2 16:51 Arm band placed on right wrist. ss 16:55 Triage completed. ss 16:59 Patient has correct armband on for positive identification. Bed in low position. Call aa5 light in reach. Side rails up X2. Adult w/ patient. 17:02 Jude Millard MD is Attending Physician. ma2 17:12 Inserted saline lock: 20 gauge in left antecubital area, using aseptic technique. Blood bp collected. 17:13 Kerri Pitt, RN is Primary Nurse. aa5 17:13 Filiberto Lopez, RN is Primary Nurse. bp 17:56 Kapil Rivera MD is Referral Physician. ma2 17:58 Kapil Rivera MD is Referral Physician. ma2 18:21 No provider procedures requiring assistance completed. IV discontinued, intact, bp bleeding controlled, No redness/swelling at site. Pressure dressing applied. Administered Medications: No medications were administered Outcome: 17:56 Discharge ordered by . ma2 18:21 AMA AMA form signed bp 18:21 Condition: stable 18:21 Instructed on follow up and referral plans. 18:22 Patient left the ED. bp NIH Stroke Scale - NIH Stroke Score Date: 05/08/2019 Time: 17:00 Total Score = 0 1a. Level of Consciousness (LOC) - 0(Alert) 1b. Level of Consciousness (LOC) (Year \\T\\ Age) - 0(Both) 1c. LOC Commands (Open \\T\\ Closes Eyes/Injection Molding Operator) - 0(Both) 2. Best Gaze (Lateral Gaze Paresis) - 0(Normal) 3. Visual Field Loss - 0(No visual loss) 4. Facial Palsy - 0(Normal) 5a. Left Arm: Motor (10-second hold) - 0(No drift) 5b. Right Arm: Motor (10-second hold) - 0(No drift) 6a. Left Leg: Motor (5-second hold - always test supine) - 0(No drift) 6b. Right Leg: Motor (5-second hold - always test supine) - 0(No drift) 7. Limb Ataxia (finger/nose \\T\\ heel/johnston - test with eyes open) - 0(Absent) 8. Sensory Loss (pinprick arms/legs/face) - 0(Normal) 9. Best Language: Aphasia (description/naming/reading) - 0(No aphasia) 10. Dysarthria (speech clarity - read or repeat words) - 0(Normal) 11. Extinction and Inattention (visual/tactile/auditory/spatial/personal) - 0(No abnormality) Initials: bp Signatures: Kerri Pitt RN RN aa5 Judit Valencia RN RN ss Erica Conteh am2 Filiberto Lopez RN RN bp Jude Millard MD MD ma2 Breanna Hodge RN RN vc Corrections: (The following items were deleted from the chart) 16:59 16:58 Kerri Pitt RN is Primary Nurse. aa5 aa5
--- NOTE | 2019-05-08 17:57 | EDPHYS ---
Physician Documentation [facility] Name: Ketan Feng Age: 79 yrs Sex: Male : 1940 Arrival Date: 05/08/2019 Time: 16:47 Bed 2 Private MD: Brendan [facility] ED Physician Jude Millard HPI: 05/08 17:51 This 79 yrs old Male presents to ER via Wheelchair with complaints of Altered ma2 Mental Status. 17:51 This 79 yrs old Male presents to ER via Wheelchair with complaints of aphasia.ma2 17:51 Onset: The symptoms/episode began/occurred suddenly, 1 hour(s) ago. Possible causes: ma2 CVA or TIA. Associated signs and symptoms: Pertinent negatives: ataxia, confusion, dizziness, lightheadedness. Patient's baseline: Neuro: alert and fully oriented, Motor: no deficits. The patient has not experienced similar symptoms in the past. has expressive aphasia that lasted for 30 min, resolved prior to arrival, he is back to normal now with no symptoms . Historical: - Allergies: 16:55 Augmentin; ss 16:55 Codeine; ss 16:55 Iodine; ss 16:55 Phenobarbital; ss 16:55 Sulfa (Sulfonamide Antibiotics); ss 16:55 Synalgos-DC; ss - PMHx: 16:55 Atrial Fib; CHF; COPD; Gout; High Cholesterol; Kidney Failure Stage III; urinary ss retention; - Immunization history:: Adult Immunizations up to date. - Social history:: Smoking status: Patient/guardian denies using tobacco, Patient/guardian denies using alcohol, street drugs, The patient lives with family. - Ebola Screening: : No symptoms or risks identified at this time. - Family history:: not pertinent. ROS: 17:51 Constitutional: Negative for fever, chills, and weight loss. ma2 17:51 All other systems are negative. Exam: 17:51 Constitutional: This is a well developed, well nourished patient who is awake, alert, ma2 and in no acute distress. Head/Face: Normocephalic, atraumatic. Eyes: Pupils equal round and reactive to light, extra-ocular motions intact. Lids and lashes normal. Conjunctiva and sclera are non-icteric and not injected. Cornea within normal limits. Periorbital areas with no swelling, redness, or edema. ENT: Nares patent. No nasal discharge, no septal abnormalities noted. Tympanic membranes are normal and external auditory canals are clear. Oropharynx with no redness, swelling, or masses, exudates, or evidence of obstruction, uvula midline. Mucous membranes moist. Neck: Trachea midline, no thyromegaly or masses palpated, and no cervical lymphadenopathy. Supple, full range of motion without nuchal rigidity, or vertebral point tenderness. No Meningismus. Chest/axilla: Normal chest wall appearance and motion. Nontender with no deformity. No lesions are appreciated. Cardiovascular: Regular rate and rhythm with a normal S1 and S2. No gallops, murmurs, or rubs. Normal PMI, no JVD. No pulse deficits. Respiratory: Lungs have equal breath sounds bilaterally, clear to auscultation and percussion. No rales, rhonchi or wheezes noted. No increased work of breathing, no retractions or nasal flaring. Abdomen/GI: Soft, non-tender, with normal bowel sounds. No distension or tympany. No guarding or rebound. No evidence of tenderness throughout. MS/ Extremity: Pulses equal, no cyanosis. Neurovascular intact. Full, normal range of motion. Neuro: Awake and alert, GCS 15, oriented to person, place, time, and situation. Cranial nerves II-XII grossly intact. Motor strength 5/5 in all extremities. Sensory grossly intact. Cerebellar exam normal. Normal gait. Vital Signs: 16:51 BP 151 / 97; Pulse 77; Resp 17; Temp 97.0(TE); Pulse Ox 96% on R/A; Weight 108.86 kg; ss Height 5 ft. 8 in. (172.72 cm); Pain 3/10; 17:47 BP 125 / 95; Pulse 64; Resp 11; Pulse Ox 98% on R/A; Pain 0/10; vc 18:18 BP 144 / 92; Pulse 63; Resp 16; Temp 98; Pulse Ox 96% ; bp 16:51 Body Mass Index 36.49 (108.86 kg, 172.72 cm) NIH Stroke Scale Scores: 17:00 NIHSS Score: 0 bp MDM: 17:02 Patient medically screened. ma2 17:51 Differential Diagnosis: CVA, electrolyte abnormality, alcohol intoxication, ma2 hypoglycemia, TIA, volume depletion. Data reviewed: vital signs, nurses notes. Counseling: I had a detailed discussion with the patient and/or guardian regarding: the historical points, exam findings, and any diagnostic results supporting the discharge/admit diagnosis, the presence of at least one elevated blood pressure reading (>120/80) during this emergency department visit, the need for further work-up and treatment in the hospital. 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 jacobo and his pcp and get MRI/MRA in the next 48 hrs and call 911 for any new symptoms, will stay with him, he is aware of risk of leaving the hospital tonight . 05/08 16:58 Order name: Basic Metabolic Panel [facility] 05/08 16:58 Order name: CBC with Diff 05/08 16:58 Order name: Protime (+inr) [facility] 05/08 16:58 Order name: Ptt, Activated 05/08 17:20 Order name: Glucose, Ancillary Testing; Complete Time: 17:42 EDMS 05/08 17:24 Order name: CBC with Automated Diff; Complete Time: 17:42 EDMS 05/08 16:58 Order name: CT Stroke Brain w/o Contrast 05/08 16:58 Order name: Stroke CXR 1 View 05/08 16:58 Order name: EKG; Complete Time: 16:59 [facility] 05/08 17:23 Order name: CT; Complete Time: 17:42 EDMS 05/08 17:29 Order name: Protime (+INR); Complete Time: 17:42 EDMS 05/08 17:29 Order name: PTT, Activated Partial Thromb; Complete Time: 17:42 EDMS 05/08 17:34 Order name: Basic Metabolic Panel; Complete Time: 17:42 EDMS 05/08 17:56 Order name: RAD HI 05/08 16:58 Order name: Accucheck; Complete Time: 17:59 [facility] 05/08 16:58 Order name: Cardiac monitoring; Complete Time: 18:00 [facility] 05/08 16:58 Order name: EKG - Nurse/Tech; Complete Time: 18:00 aa5 05/08 16:58 Order name: IV Saline Lock; Complete Time: 18:00 aa5 05/08 16:58 Order name: Labs collected and sent; Complete Time: 18:00 aa5 12 16:58 Order name: NPO; Complete Time: 18:00 aa5 05/08 16:58 Order name: O2 Per Protocol; Complete Time: 18:00 aa5 05/08 16:58 Order name: O2 Sat Monitoring; Complete Time: 18:00 aa5 05/08 16:58 Order name: Stroke Swallow Screen; Complete Time: 18:00 aa5 Administered Medications: No medications were administered Disposition: 05/08/19 17:58 Patient has left against medical advice. Impression: Transient cerebral ischemic attack, unspecified. - Patients states they are going to Home. - Condition is Stable. Follow up: Kapil Jacobo MD; When: Tomorrow; Reason: Continuance of care. - Problem is new. - Symptoms are unchanged. 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 NIH Stroke Scale - NIH Stroke Score Date: 05/08/2019 Time: 17:00 Total Score = 0 1a. Level of Consciousness (LOC) - 0(Alert) 1b. Level of Consciousness (LOC) (Year \T\ Age) - 0(Both) 1c. LOC Commands (Open \T\ Closes Eyes/Speaker Mounter) - 0(Both) 2. Best Gaze (Lateral Gaze Paresis) - 0(Normal) 3. Visual Field Loss - 0(No visual loss) 4. Facial Palsy - 0(Normal) 5a. Left Arm: Motor (10-second hold) - 0(No drift) 5b. Right Arm: Motor (10-second hold) - 0(No drift) 6a. Left Leg: Motor (5-second hold - always test supine) - 0(No drift) 6b. Right Leg: Motor (5-second hold - always test supine) - 0(No drift) 7. Limb Ataxia (finger/nose \T\ heel/johnston - test with eyes open) - 0(Absent) 8. Sensory Loss (pinprick arms/legs/face) - 0(Normal) 9. Best Language: Aphasia (description/naming/reading) - 0(No aphasia) 10. Dysarthria (speech clarity - read or repeat words) - 0(Normal) 11. Extinction and Inattention (visual/tactile/auditory/spatial/personal) - 0(No abnormality) Initials: bp Signatures: Dispatcher [employer] EDMS Kerri Pitt, RN RN aa5 Judit Valencia, ASIA RN ss Filiberto Lopez RN RN Jude Ariza MD MD ma2 Corrections: (The following items were deleted from the chart) 17:58 17:56 05/08/2019 17:56 Discharged to Home. Impression: Transient cerebral ma2 ischemic attacks and related syndromes. Condition is Stable. Forms are Medication Reconciliation Form, Thank You Letter, Antibiotic Education, Prescription Opioid Use. Follow up: Kapil Jacobo; When: Tomorrow; Reason: Continuance of care. ma2 18:22 17:58 05/08/2019 17:58 Patients has left against medical advice. Impression: bp Transient cerebral ischemic attack, unspecified. Patient states they are going to Home. Condition is Stable. Follow up: Kapil Jacobo; When: Tomorrow; Reason: Continuance of care. Problem is new. Symptoms are unchanged. ma2
[2019-05-08 18:42] VITALS: BP 144/92; TEMP 98; O2SAT 96
--- NOTE | 2019-05-09 07:53 | EKG ---
Test Date: 2019-05-08 Test Time: 17:06:38 Chief Creative Officer: ROBERT MEASUREMENT RESULTS: Intervals: Rate: 70 SC: QRSD: 102 QT: 394 QTc: 425 [place]: P: SC: QRS: -48 T: 73 INTERPRETIVE STATEMENTS: Atrial fibrillation Left axis Abnormal ECG Compared to ECG 04/19/2017 07:01:18 ST (T wave) deviation no longer present Prolonged QT interval no longer present Electronically Signed On 05-09-19 07:52:39 QA LEAD by Davide Patel
== END 2019-05-08 18:22 | disposition left against medical advice (07) ==
LOC: ER 16:46
DX: G45.9 Transient cerebral ischemic attack, unspecified (principal); N19 Unspecified kidney failure; Z88.1 Allergy status to other antibiotic agents; Z88.2 Allergy status to sulfonamides; Z88.5 Allergy status to narcotic agent; Z88.8 Allergy status to other drugs, medicaments and biological substances
CPT/HCPCS: 36415; 70450; 71045; 80048; 82947; 85025; 85610; 85730; 93005; 99284

== ENCOUNTER 2021-11-06 09:46 | Emergency (ER) | payer OTHER ==
--- OUTSIDE RECORDS SUMMARY | 2021-11-06 09:49 | XMS REPORT | Continuity of Care Document ---
:1940 Author Organization [facility] t Address [address] [place] [address] Care Team Providers Name Role Phone Doroteo Cardona Attending Clinician Unavailable Problems This patient has no known problems. Allergies, Adverse Reactions, Alerts Allergy Allergy Status Severity Reaction(s) Onset Inactive Treating Comm ents Source Name Type Date Date Clinician Synalgos Adverse Active Info Not Commo n -DC Reaction Available [facility] Phenobar Adverse Active Info Not Commo n bital Reaction Available [facility] Keflex Adverse Active Info Not Common Reaction Available [facility] Iodine Adverse Active Info Not Common Reaction Available [facility] Ibuprofe Adverse Active Info Not Commo n n Reaction Available [facility] Colchici Adverse Active Info Not Commo n ne Reaction Available [facility] Augmenti Adverse Active Info Not Commo n n Reaction Available [facility] Levaquin Adverse Active Info Not Commo n Reaction Available [facility] Hydrocod Adverse Active Info Not Commo n one-Acet Reaction Available [facility] Medications Ordered Filled Start Stop Current Ordering Indication Dosage Frequency Signature Comments Components Source Medication Medication Date Date Medication? Clinician (SIG) Name Name Ventolin Ventolin 2019-0 Yes Adolfo 2 puffs as Common HFA HFA 2-12 Cardona needed [facility]: - [facility] Coreg Coreg Yes Adolfo as Common Cardona directed [facility] Flomax Flomax Yes Adolfo 1 capsule Comm on Cardona [facility] Bumetanide Bumetanide Yes Adolfo take 0.5 Common Cardona tab [facility] ProAir HFA ProAir HFA Yes Adolfo 2 puffs as Common Cardona needed [facility] GlipiZIDE GlipiZIDE Yes Adolfo 1 tablet Common ER ER Cardona with Spirit breakfast [facility] Pantoprazol Pantoprazol Yes Adolfo 1 tablet Common e Sodium e Sodium Cardona [facility] Symbicort Symbicort Yes Adolfo 2 puffs Common Cardona [facility] Levothyroxi Levothyroxi Yes Adolfo 1 tablet Common ne Sodium ne Sodium Cardona on an Spi rit empty - [facility] stomach in [facility] Zyrtec Zyrtec Yes Adolfo 1 tablet Commo n Allergy Allergy Cardona [facility] Victoza Victoza Yes Adolfo not Common Cardona defined [facility] Xarelto Xarelto Yes Adolfo 1 tablet Com mon Cardona with food [facility] NovoFine NovoFine Yes Adlofo as Commo n Plus Plus Cardona directed [facility] Vitamin D3 Vitamin D3 Yes Adolfo not C ommon Cardona defined [facility] Aspirin Aspirin Yes Adolfo 1 tablet Com mon Adult Low Adult Low Cardona Spir it Dose Dose - [facility] Pravastatin Pravastatin Yes Adolfo 1 tablet Common Sodium Sodium Cardona [facility] Allopurinol Allopurinol Yes Adolfo 2 tablets Common Cardona [facility] Calcitriol Calcitriol Yes Adolfo 1 capsule Common Cardona [facility] Clopidogrel Clopidogrel Yes Adolfo TAKE ONE Common Bisulfate Bisulfate Cardona (1) Spir it TABLET(S) - [facility] BY MOUTH St ONCE A [facility] DAY. Medical [place] Xarelto Xarelto Yes Adolfo TAKE 1 Commo n Cardona TABLET Spirit DAILY WITH - [facility] FOOD [facility] PredniSONE PredniSONE Yes Adolfo 1 tablet Common Cardona [facility] Pantoprazol Pantoprazol Yes Adolfo TAKE 1 Common e Sodium e Sodium Cardona TABLET Spir it DAILY - [facility] Levothyroxi Levothyroxi Yes Adolfo TAKE 1 Common ne Sodium ne Sodium Cardona TABLET Sp danya DAILY [facility] M[facility] AN EMPTY Medical [facility] Procedures This patient has no known procedures. Encounters Start End Encounter Admission Attending Care Care Encounter Source Date/Time Date/Time Type Type Clinicians Facility Department ID 2021-10-16 Outpatient Cardona, STLMLC ST[facility] [id number] Common 07:11:00 Adolfo [facility] 2021-06-17 Outpatient Cardona, STLMLC STLC [id number] Common 13:41:11 Adolfo [id number] [facility] 2021-06-17 Outpatient Cardona, STLMLC STLC [id number] Common 13:21:16 Adolfo 12925 [facility] 2021-06-17 Outpatient Cardona, STLMLC STLC [id number] Common 13:21:03 Adolfo [id number] [facility] 2021-06-17 Outpatient Cardona, STLMLC STLC [id number] Common 12:47:15 Adolfo 99411 [facility] 2021-06-17 Outpatient Cardona, STLMLC STLC [id number] Common 12:45:40 Adolfo [id number] [facility] 2021-06-17 Outpatient Cardona, STLMLC STLMLC [id number] Common 11:31:39 Adolfo 08025 [facility] 2021-06-17 Outpatient Cardona, STLMLC STLMLC [id number] Common 11:04:46 Adolfo [id number] [facility] 2021-06-17 Outpatient Cardona, STLMLC STLC [id number] Common 10:59:00 Adolfo [id number] [facility] 2021-10-16 2021-10-16 ambulatory STLMLC STLMLC [id number] Common 00:00:00 00:00:00 [facility] 2021-08-05 2021-08-05 ambulatory STLMLC STLMLC [id number] Common 00:00:00 00:00:00 [facility] 2021-04-08 2021-04-08 ambulatory STLMLC STLMLC [id number] Common 00:00:00 00:00:00 [facility] 2021-02-27 2021-02-27 Outpatient STLMLC STLMLC [id number] Common 00:00:00 00:00:00 [facility] 2021-01-27 2021-01-27 Outpatient STLMLC STLMLC [id number] Common 00:00:00 00:00:00 [facility] 2021-01-27 2021-01-27 Outpatient STLMLC STLMLC [id number] Common 00:00:00 00:00:00 [facility] 2021-01-13 2021-01-13 Outpatient STLMLC STLMLC [id number] Common 00:00:00 00:00:00 [facility] 2021-01-09 2021-01-09 Outpatient STLMLC STLMLC [id number] Common 00:00:00 00:00:00 [facility] 2021-01-09 2021-01-09 Outpatient STLMLC STLMLC [id number] Common 00:00:00 00:00:00 [facility] 2021-01-07 2021-01-07 Outpatient STLMLC STL[facility]C [id number] Common 00:00:00 00:00:00 [facility] 2020-11-20 2020-11-20 Outpatient STLMLC STLMLC [id number] Common 00:00:00 00:00:00 [facility] 2020-11-19 2020-11-19 Outpatient STLMLC STLMLC [id number] Common 00:00:00 00:00:00 [facility] 2020-09-19 2020-09-19 Outpatient STLMLC STLMLC [id number] Common 00:00:00 00:00:00 [facility] 2020-09-11 2020-09-11 Outpatient STLMLC STLMLC [id number] Common 00:00:00 00:00:00 [facility] 2020-08-29 2020-08-29 Outpatient STLMLC STLMLC [id number] Common 00:00:00 00:00:00 [facility] 2020-08-20 2020-08-20 Outpatient STLMLC STLMLC [id number] Common 00:00:00 00:00:00 [facility] 2020-08-20 2020-08-20 Outpatient STLMLC STLMLC [id number] Common 00:00:00 00:00:00 [facility] 2020-08-12 2020-08-12 Outpatient STLMLC STLMLC [id number] Common 00:00:00 00:00:00 [facility] 2020-05-16 2020-05-16 Outpatient STLMLC STLMLC [id number] Common 00:00:00 00:00:00 [facility] 2020-03-11 2020-03-11 Outpatient STLMLC STLMLC [id number] Common 00:00:00 00:00:00 [facility] 2020-03-10 2020-03-10 Outpatient STLMLC STLMLC [id number] Common 00:00:00 00:00:00 [facility] 2019-12-06 2019-12-06 [facility] [id number] Common 08:45:00 08:45:[place] [address] [facility] 2019-11-07 2019-11-07 [facility] [id number] Common 08:30:00 08:30:00 [place] [address] [facility] 2019-08-07 2019-08-07 [facility] [id number] Common 13:36:00 13:36:00 [place] [address] [facility] 2019-05-31 2019-05-31 [facility] [id number] Common 09:45:00 09:45:00 [place] [address] [facility] 2019-05-24 2019-05-24 [facility] [id number] Common 08:03:00 08:03:00 [place] [address] [facility] 2019-05-14 2019-05-14 [facility] [id number] Common 09:30:00 09:30:00 [place] [address] [facility] 2019-05-09 2019-05-09 [facility] [id number] Common 10:54:00 10:54:00 [place] [address] [facility] 2019-05-09 2019-05-09 [facility] [id number] Common 08:30:00 08:30:00 [place] [address] [facility] 2019-05-03 2019-05-03 [facility] [id number] Common 09:14:00 09:14:00 [place] [address] [facility] 2019-04-11 2019-04-11 [facility] [id number] Common 14:31:00 14:31:00 [place] [address] [facility] 2019-04-04 2019-04-04 [facility] [id number] Common 09:15:00 09:15:00 [place] [address] [facility] 2019-02-26 2019-02-26 [facility] [id number] Common 09:57:00 09:57:00 [place] [address] [facility] 2019-02-21 2019-02-21 [facility] [id number] Common 15:15:00 15:15:00 [place] [address] [facility] 2019-02-20 2019-02-20 [facility] [id number] Common 08:27:00 08:27:00 [place] [address] [facility] 2018-12-06 2018-12-06 [facility] [id number] Common 15:15:00 15:15:00 [place] [address] [facility] 2018-11-07 2018-11-07 [facility] [id number] Common 14:45:00 14:45:00 [place] [address] [facility] 2018-07-11 2018-07-11 [facility] [id number] Common 12:19:00 12:19:00 [place] [address] [facility] 2018-07-04 2018-07-04 [facility] [id number] Common 14:00:00 14:00:00 [place] [address] [facility] 2018-05-26 2018-05-26 [facility] [id number] Common 10:45:00 10:45:00 [place] [address] [facility] 2018-05-25 2018-05-25 [facility] [id number] Common 10:09:00 10:09:00 [place] [address] [facility] 2018-05-02 2018-05-02 [facility] [id number] Common 14:46:00 14:46:00 [place] [address] [facility] 2018-05-01 2018-05-01 [facility] [id number] Common 13:39:00 13:39:00 [place] [address] [facility] 2018-02-28 2018-02-28 [facility] [id number] Common 16:45:00 16:45:00 [place] [address] [facility] 2018-02-23 2018-02-23 [facility] [id number] Common 09:00:00 09:00:00 [place] [address] [facility] 2018-02-13 2018-02-13 [facility] [id number] Common 10:00:00 10:00:00 t Specialty/U Sp danya Specialty rology - [facility] 2017-12-26 2017-12-26 Outpatient Brielle Carmona [id number] Common 08:15:00 08:15:00 [place] [address] [facility] 2017-11-21 2017-11-21 Outpatient Brielle Carmona [id number] Common 15:42:00 15:42:[address] [facility] 2017-11-10 2017-11-10 Outpatient Brielle Carmona [id number] Common 09:30:00 09:30:[address] [facility] Results This patient has no known results.
[2021-11-06 11:05] LABS: Absolute Lymphocytes (CBC) 0.8 K/uL (0.7-4.9); Hematocrit 37.7 % (39.6-49.0); Lymphocytes % 13.1 % (15.3-44.8); MPV 7.4 fL (7.6-11.3)
[2021-11-06 11:14] LABS: Protime INR 1.97
--- NOTE | 2021-11-06 11:27 | RAD REPORT ---
EXAM DESCRIPTION: CT - Ct Stroke Brain Wo Cont - 11/06/2021 11:10 am CLINICAL HISTORY: AMS COMPARISON: Ct Stroke Brain Wo Cont dated 05/08/2019 TECHNIQUE: Axial 5 millimeter thick images of the head were obtained without IV contrast. All CT scans are performed using dose optimization technique as appropriate and may include automated exposure control or mA/KV adjustment according to patient size. FINDINGS: No intracranial hemorrhage, mass, or cerebral edema. No cortical based infarction seen. No cortical edema or sulcal effacement. Mild for age atrophy changes are present stable from prior imag ing. Ventricles are in proportion to the amount of volume loss. Chronic ischemic change in the cerebr al white matter is mild in severity and similar to prior imaging. No extra-axial fluid collections. Yun matter-white matter differentiation is preserved.Arterial calcifications are present. No globe or orbital content abnormality seen. Visualized portions of the mastoid air cells, paranasal sinuses, and orbits are unremarkable. Findings telephoned to Dr Freeman cavazos 11:21 a.m. IMPRESSION: No CT evidence of acute intracranial process. Patient has atrophy and chronic ischemic findings are similar to the 2019 comparison.
[2021-11-06 11:33] LABS: Albumin 3.5 g/dL (3.4-5.0); Bilirubin Direct 0.3 mg/dL (0-0.2); Bilirubin Total 0.7 mg/dL (0.2-1.0); CKMB Creatine Kinase MB 3.3 ng/mL (1.0-3.6); Magnesium 1.7 mg/dL (1.8-2.4); Potassium 3.6 mmol/L (3.5-5.1); Protein, Total 7.2 g/dL (6.4-8.2)
--- NOTE | 2021-11-06 11:41 | RAD REPORT ---
EXAM DESCRIPTION: RAD - Chest Single View - 11/06/2021 11:21 am CLINICAL HISTORY: AMS, history of CHF, COPD and AFib COMPARISON: Portable 05/08/2019 TECHNIQUE: AP portable chest image was obtained 11/06/2021 11:21 am . FINDINGS: No focal lung parenchymal process. Interstitial pattern is accentuated by under penetrated film technique and portable technique. Interstitial pattern is not grossly different from the compar [place] examination. Right hemidiaphragm elevation and eventration are again noted. Defibrillator remain s in place. Heart and vasculature are normal. No measurable pleural effusion and no pneumothorax. No acute bony abnormality seen. No acute aortic findings suspected. IMPRESSION: No acute cardiopulmonary process. No significant change from comparison.
--- NOTE | 2021-11-06 11:43 | RAD REPORT ---
EXAM DESCRIPTION: RAD - Tib Fib Right - 11/06/2021 11:21 am CLINICAL HISTORY: PAIN, palpable mass in her right calf COMPARISON: No comparisons FINDINGS: No fracture is identified. There is no dislocation or periosteal reaction noted. No acute or suspicious bony finding. Total knee prosthesis in place with no radiographic evidence for loosenin g. No discrete mass seen in the soft tissues. No air, calcification or foreign body. IMPRESSION: Negative right tibia & fibula examination. No plain film correlate for the history of palpable mass inner right calf. Follow-up sonography can b e performed as warranted if there are ongoing clinical concerns.
--- NOTE | 2021-11-06 12:45 | ER ---
Nurse's Notes [facility] Name: Ketan Feng Age: 81 yrs Sex: Male : 1940 Arrival Date: 11/06/2021 Time: 09:48 Bed 2 Private MD: Adolfo Cardona Diagnosis: Cellulitis of right lower limb Presentation: 11/06 09:54 Chief complaint: Patient states: has a knot on right inner calf X 4-5 days, tender to iw touch, states he does not remember half the day yesterday, has had similar episode in past, hx of TIA in past. Coronavirus screen: At this time, the client does not indicate any symptoms associated with coronavirus-19. Ebola Screen: Patient negative for fever greater than or equal to 101.5 degrees Fahrenheit, and additional compatible Ebola Virus Disease symptoms Patient denies exposure to infectious person. Patient denies travel to an Ebola-affected area in the 21 days before illness onset. No symptoms or risks identified at this time. Initial Sepsis Screen: Does the patient meet any 2 criteria? No. Patient's initial sepsis screen is negative. Does the patient have a suspected source of infection? No. Patient's initial sepsis screen is negative. Risk Assessment: Do you want to hurt yourself or someone else? Patient reports no desire to harm self or others. Onset of symptoms was November 05, 2021. 09:54 Method Of Arrival: Wheelchair iw 09:54 Acuity: GARY 3 iw Historical: - Allergies: 09:56 Augmentin; iw 09:56 Codeine; iw 09:56 Iodine; iw 09:56 Phenobarbital; iw 09:56 Sulfa (Sulfonamide Antibiotics); iw 09:56 Synalgos-DC; iw - PMHx: 09:56 CHF; COPD; Kidney Failure Stage III; High Cholesterol; urinary retention; Gout; Atrial iw Fib; - Immunization history:: Adult Immunizations up to date, Client reports receiving the 2nd dose of the Covid vaccine. - Social history:: Patient/guardian denies using alcohol, street drugs, The patient lives with family, Smoking status: Patient denies any tobacco usage or history of. Patient/guardian denies using. - Family history:: not pertinent. Screenin:00 Abuse screen: Denies threats or abuse. Nutritional screening: No deficits noted. aa5 Tuberculosis screening: No symptoms or risk factors identified. Fall Risk Secondary diagnosis (15 points) TIA, IV access (20 points). Ambulatory Aid- Crutches/Cane/Walker (15 pts). Total [place] Fall Scale indicates High Risk Score (45 or more points). Fall prevention measures have been instituted. Side Rails Up X 2 Placed Close to Nursing Station Family Present and informed to notify staff if the need to leave the bedside. Assessment: 10:15 General: Appears comfortable, Behavior is calm, cooperative. Pain: Denies pain. Neuro: aa5 Level of Consciousness is awake, alert, obeys commands, Oriented to person, place, time, situation, Reports Episode of confusion yesterday, pt states "I took a nap and woke up and it was 8:30pm but I thought it was morning and I couldn't figure out why I couldn't find my so I called her and she's the one that told me it was night and that she had told me that she was going to [employer] for a women's thing". Pt's states "it was like he lost a day yesterday because he couldn't remember". . Cardiovascular: Heart tones S1 S2 present Rhythm is sinus bradycardia. Respiratory: Airway is patent Respiratory effort is even, unlabored, Respiratory pattern is regular, symmetrical, Breath sounds are clear bilaterally. GI: Abdomen is round. : No signs and/or symptoms were reported regarding the genitourinary system. EENT: No signs and/or symptoms were reported regarding the EENT system. Derm: Skin is pink, warm \\T\\ dry. Reports bump and redness to right lower leg, reports discomfort upon site palpation. Musculoskeletal: Range of motion: intact in all extremities. Vital Signs: 09:54 BP 138 / 82; Pulse 67; Resp 16; Temp 97.4; Pulse Ox 98% ; Weight 98.43 kg; Height 5 ft. iw 7 in. (170.18 cm); 11:52 BP 119 / 74; Pulse 53; Resp 17 S; Pulse Ox 100% on R/A; jd3 12:22 BP 121 / 73; Pulse 51; Resp 18; Pulse Ox 100% on R/A; ld1 09:54 Body Mass Index 33.99 (98.43 kg, 170.18 cm) iw ED Course: 09:48 Patient arrived in ED. rg4 09:48 Adolfo Cardona, DO is Private Physician. rg4 09:56 Triage completed. 09:56 Arm band placed on. 10:05 Jude Millard MD is Attending Physician. ma2 10:15 Patient has correct armband on for positive identification. Bed in low position. Call aa5 light in reach. Side rails up X 1. Adult w/ patient. Client placed on continuous cardiac and pulse oximetry monitoring. NIBP monitoring applied. 10:21 Kerri Pitt, RN is Primary Nurse. aa5 10:50 Missed attempt(s): 20 gauge in right forearm. Bleeding controlled, band aid applied, 3 catheter tip intact. 10:54 Initial lab(s) drawn, by me, sent to lab. Inserted saline lock: 20 gauge in left dh3 antecubital area, using aseptic technique. Blood collected. 11:11 CT Stroke Brain w/o Contrast In Process Unspecified. EDMS 11:23 Stroke CXR 1 View In Process Unspecified. EDMS 11:23 Tib Fib Right XRAY In Process Unspecified. EDMS 11:38 EKG done, by ED staff, reviewed by Jude Millard MD. [facility] 12:00 Report given to ASIA Lima and ASIA Bond. aa5 12:22 No provider procedures requiring assistance completed. IV discontinued, intact, ld1 bleeding controlled, No redness/swelling at site. Administered Medications: No medications were administered Medication: 12:22 VIS not applicable for this client. ld1 Outcome: 12:44 Discharge ordered by . ma2 12:54 Patient left the ED. jd3 Signatures: Dispatcher [employer] EDMS Yamileth Pugh, RN ASIA Kerri Pitt, RN RN adri5 Niesha Reyes [facility] Patricia Satnillan [facility] Ketan Tesfaye RN RN jd3 Alzahri, Mohammad, MD MD ma2 Janie Espinoza RN RN ld1 Corrections: (The following items were deleted from the chart) 11:56 10:15 Derm: Skin is pink, warm \\T\\ dry. Reports bump and redness to left lower leg, aa5 reports discomfort upon site palpation. aa5
--- NOTE | 2021-11-06 12:45 | EDPHYS ---
Physician Documentation [facility] Name: Ketan Feng Age: 81 yrs Sex: Male : 1940 Arrival Date: 11/06/2021 Time: 09:48 Bed 2 Private MD: Brendan [facility] ED Physician Jude Millard HPI: 11/06 10:25 This 81 yrs old Male presents to ER via Wheelchair with complaints of Confusion, ma2 redness on Leg. 10:25 81-year-old male, state he had thought yesterday at 8 AM that it was 8 PM, so he called ma2 his and asked her about the time, got concerned and called his PCP today so they advised him to come to ER, of note patient stated that this time disorientation happened yesterday briefly and has resolved today, at this time he has no symptom and he feels perfectly well he is oriented to time place person and situation, he is not confused and specifically does not have any other symptoms or neurodeficit. Patient said he had TIAs in the past. Patient does not want to stay in the hospital he said he only would like to stay in the ER waiting for the test for an hour and would like to be discharged. He states that he is only here because his made him come to ER and he does not want to be in the ER at this time, patient states he has right lower leg swelling that he think he bumped his right leg 2 weeks ago, patient states that swelling is improving and is significantly better than last week, he has no pain or fever at this time.. Historical: - Allergies: 09:56 Augmentin; iw 09:56 Codeine; iw 09:56 Iodine; iw 09:56 Phenobarbital; iw 09:56 Sulfa (Sulfonamide Antibiotics); iw 09:56 Synalgos-DC; iw - PMHx: 09:56 CHF; COPD; Kidney Failure Stage III; High Cholesterol; urinary retention; Gout; Atrial iw Fib; - Immunization history:: Adult Immunizations up to date, Client reports receiving the 2nd dose of the Covid vaccine. - Social history:: Patient/guardian denies using alcohol, street drugs, The patient lives with family, Smoking status: Patient denies any tobacco usage or history of. Patient/guardian denies using. - Family history:: not pertinent. ROS: 10:25 Constitutional: Negative for fever, chills, and weight loss. ma2 10:25 All other systems are negative. Exam: 10:25 Constitutional: This is a well developed, well nourished patient who is awake, alert, ma2 and in no acute distress. Head/Face: Normocephalic, atraumatic. Eyes: Pupils equal round and reactive to light, extra-ocular motions intact. Lids and lashes normal. Conjunctiva and sclera are non-icteric and not injected. Cornea within normal limits. Periorbital areas with no swelling, redness, or edema. ENT: Nares patent. No nasal discharge, no septal abnormalities noted. Tympanic membranes are normal and external auditory canals are clear. Oropharynx with no redness, swelling, or masses, exudates, or evidence of obstruction, uvula midline. Mucous membranes moist. Neck: Trachea midline, no thyromegaly or masses palpated, and no cervical lymphadenopathy. Supple, full range of motion without nuchal rigidity, or vertebral point tenderness. No Meningismus. Chest/axilla: Normal chest wall appearance and motion. Nontender with no deformity. No lesions are appreciated. Cardiovascular: Regular rate and rhythm with a normal S1 and S2. No gallops, murmurs, or rubs. Normal PMI, no JVD. No pulse deficits. Respiratory: Lungs have equal breath sounds bilaterally, clear to auscultation and percussion. No rales, rhonchi or wheezes noted. No increased work of breathing, no retractions or nasal flaring. Abdomen/GI: Soft, non-tender, with normal bowel sounds. No distension or tympany. No guarding or rebound. No evidence of tenderness throughout. Skin: Warm, dry with normal turgor. Normal color with no rashes, no lesions, and no evidence of cellulitis. MS/ Extremity: Area of contusion on the medial aspect of lower leg over tibia of the right leg, there is redness measures about 2 x 2 centimeter, however there is no swelling, fluctuance or crepitation, no tenderness no warmth. It looks as contusion more than cellulitis or inflammatory process. Otherwise there is no pulses equal, no cyanosis. Neurovascular intact. Full, normal range of motion. Neuro: Awake and alert, GCS 15, oriented to person, place, time, and situation. Cranial nerves II-XII grossly intact. Motor strength 5/5 in all extremities. Sensory grossly intact. Cerebellar exam normal. Normal gait. Psych: Awake, alert, with orientation to person, place and time. Behavior, mood, and affect are within normal limits. Vital Signs: 09:54 BP 138 / 82; Pulse 67; Resp 16; Temp 97.4; Pulse Ox 98% ; Weight 98.43 kg; Height 5 ft. iw 7 in. (170.18 cm); 11:52 BP 119 / 74; Pulse 53; Resp 17 S; Pulse Ox 100% on R/A; jd3 12:22 BP 121 / 73; Pulse 51; Resp 18; Pulse Ox 100% on R/A; ld1 09:54 Body Mass Index 33.99 (98.43 kg, 170.18 cm) iw MDM: 10:05 Patient medically screened. ma2 10:25 Differential diagnosis: contusion, abrasion, tendonitis, Brief disorientation to time ma2 yesterday. Of note patient states that he is 82 years old and this always happen, he does not want to stay in the hospital, he said that this is usual for him given his age. Data reviewed: vital signs, nurses notes. Counseling: I had a detailed discussion with the patient and/or guardian regarding: the historical points, exam findings, and any diagnostic results supporting the discharge/admit diagnosis, the presence of at least one elevated blood pressure reading (>120/80) during this emergency department visit, the need for outpatient follow up. Response to treatment: the patient's symptoms have markedly improved after treatment. 11/06 10:25 Order name: Amylase, Serum; Complete Time: 12:12 11/06 10:25 Order name: Basic Metabolic Panel; Complete Time: 12:12 11/06 10:25 Order name: CBC with Diff; Complete Time: 12:12 11/06 10:25 Order name: CPK; Complete Time: 12:12 11/06 10:25 Order name: Ckmb; Complete Time: 12:12 11/06 10:25 Order name: Hepatic Function; Complete Time: 12:12 11/06 10:25 Order name: Lipase; Complete Time: 12:12 11/06 10:25 Order name: Magnesium; Complete Time: 12:12 11/06 10:25 Order name: Protime (+inr); Complete Time: 12:12 11/06 10:25 Order name: Ptt, Activated; Complete Time: 12:12 11/06 10:25 Order name: CT Stroke Brain w/o Contrast; Complete Time: 12:12 11/06 10:25 Order name: Stroke CXR 1 View; Complete Time: 12:12 11/06 10:25 Order name: EKG; Complete Time: 10:26 11/06 10:25 Order name: Tib Fib Right XRAY; Complete Time: 12:12 11/06 10:25 Order name: Accucheck; Complete Time: 11:08 11/06 10:25 Order name: Cardiac monitoring; Complete Time: 11:08 11/06 10:25 Order name: EKG - Nurse/Tech; Complete Time: 11:11/06 10:25 Order name: Labs collected and sent; Complete Time: 11:02 11/06 10:25 Order name: O2 Sat Monitoring; Complete Time: 11:08 ma2 Administered Medications: No medications were administered Disposition Summary: 11/06/21 12:44 Discharge Ordered Location: Home ma2 Condition: Stable ma2 Diagnosis - Cellulitis of right lower limb ma2 Followup: ma2 - With: Private Physician - When: Tomorrow - Reason: If symptoms return, Continuance of care Discharge Instructions: - Discharge Summary Sheet ma2 - Cellulitis, Adult ma2 Forms: - Medication Reconciliation Form ma2 - Thank You Letter ma2 - Antibiotic Education ma2 - Prescription Opioid Use ma2 Prescriptions: - Clindamycin HCl 300 mg Oral Capsule - take 1 capsule by ORAL route every 6 hours for 10 days; 40 capsule; Refills: 0, ma2 Product Selection Permitted Signatures: Dispatcher [employer] Yamileth Merchant RN Jude Verdugo MD MD ma2 Janie Espinoza RN RN ld1 Corrections: (The following items were deleted from the chart) 12:22 10:25 Urine Dipstick-Ancillary ordered. ma2 ld1
[2021-11-06 13:01] VITALS: TEMP 97.4
[2021-11-06 13:03] VITALS: O2SAT 100
[2021-11-06 13:05] VITALS: BP 121/73
--- NOTE | 2021-11-09 11:59 | EKG ---
Test Date: 2021-11-06 Test Time: 11:21:40 Sausage Mixer: CAMELIA MEASUREMENT RESULTS: Intervals: Rate: 62 [place]: QRSD: 116 QT: 436 QTc: 442 [place]: P: [place]: QRS: -48 T: 104 INTERPRETIVE STATEMENTS: Atrial fibrillation with a competing junctional pacemaker with premature ventricular or aberrantly conducted complexes Left anterior fascicular block Cannot rule out Anteroseptal infarct, age undetermined Abnormal ECG Compared to ECG 05/08/2019 17:06:38 Ventricular premature complex(es) now present Left anterior fascicular block now present Myocardial infarct finding now present Electronically Signed On 11-09-21 11:52:24 CDT by Cedrick Yoo
== END 2021-11-06 12:54 | disposition home or self-care (01) ==
LOC: ER 09:46
DX: L03.115 Cellulitis of right lower limb (principal); N19 Unspecified kidney failure; I50.9 Heart failure, unspecified; Z88.1 Allergy status to other antibiotic agents; Z88.2 Allergy status to sulfonamides; Z88.5 Allergy status to narcotic agent; Z88.8 Allergy status to other drugs, medicaments and biological substances; Z91.048 Other nonmedicinal substance allergy status
CPT/HCPCS: 36415; 70450; 71045; 80048; 80076; 82150; 82550; 82553; 83690; 83735; 85025; 85610; 85730; 93005; 99284

== ENCOUNTER 2022-09-06 09:44 | Inpatient (IN) | payer OTHER ==
--- OUTSIDE RECORDS SUMMARY | 2022-09-06 09:50 | XMS REPORT | Continuity of Care Document ---
:1940 Author Organization [facility] t Address [address] [place] [address] Care Team Providers Name Role Phone Asked, No Pcp Primary Care Physician Unavailable Adolfo Cardona Attending Clinician Unavailable Payers Payer Name Policy Type Policy Number Effective Date Expiration Date S charly [employer] MEDICARE 53 [id number] 2016 [facility] Spi rit 00:00:00 [facility] MEDICARE MB [id number] 2007 [facility] NOVITAS 00:00:00 [facility] Problems Condition Condition Condition Status Onset Resolution Last Treating Co mments Source Name Details Category Date Date Treatment Clinician Date Arrhythmia Arrhythmia Disease Active 2016-05 M ethodi 06-21 st 00:00: Hospita 00 l CHF CHF Disease Recurre 2016-05 Methodi (congestiv (congestiv nce 30 st e heart e heart 00:00: Hospita failure) failure) 00 l COPD COPD Disease Recurre 2016-05 [facility] (chronic (chronic nce 06-21 st obstructiv obstructiv 00:00: Ho spita e e 00 l pulmonary pulmonary disease) disease) Chronic Chronic Disease Active 2016-05 [facility]i kidney kidney 06-21 st disease disease 00:00: Hospita 00 l Type 2 Type 2 Disease Active 2016-05 [facility] diabetes diabetes 06-21 st mellitus mellitus 00:00: Hospit a 00 l Disease of Disease of Disease Active 2016-05 M ethodi thyroid thyroid 06-21 st gland gland 00:00: Hospita 00 l Hypertensi Hypertensi Disease Active 2016-05 ethodi on on 06-21 st 00:00: Hospita 00 l Ventricula Ventricula Disease Active 2016-05 M ethodi r r 06-21 st arrhythmia arrhythmia 00:00: Ho spita 00 l BPH BPH Disease Recurre 2016-05 Methodi (benign (benign nce 06-15 st prostatic prostatic 00:00: Hosp red hyperplasi hyperplasi 00 l a) a) Ventricula Ventricula Disease Active 2016-05 M ethodi r r 06-15 st tachycardi tachycardi 00:00: Ho spita a a 00 l Cardiomega Cardiomega Disease Active 2016-05 ethodi ly ly 06-15 st 00:00: Hospita 00 l [id number] Memory Problem Common loss or Spirit impairment - [facility]I [facility] [id number] TIA Problem Common (transient Spirit ischemic - CHI attack) [facility] [id number] Chronic Problem Commo n atrial Spirit fibrillati - CHI on [facility] [id number] Stage 4 Problem Commo n chronic Spirit kidney - CHI disease [facility] [id number] Body mass Problem Com mon index Spirit [BMI] - CHI 36.0-36.9, [facility] [id number] Morbid Problem Commo n 9104 (severe) Spirit obesity - CHI due to [facility] [id number] Depression Problem Com mon , major, Spirit single - CHI episode, [facility] [id number] Uncontroll Problem Co mmon ed type 2 Spirit diabetes - CHI mellitus [facility] hyperglyce Medica l [facility] without long-term current use of insulin 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 - CHI failure [facility] Aortic Aortic Problem Common valve valve Spirit regurgitat regurgitat - CHI ion ion [facility] Atopic Atopic Problem Common dermatitis dermatitis Sp danya - CHI [facility] Tricuspid Tricuspid Problem Com mon valve valve Spirit regurgitat regurgitat - CHI ion ion [facility] Gout Gout Problem Common Spirit - [facility]I [facility] Gastroesop Gastroesop Problem C ommon hageal hageal Spirit reflux reflux - CHI disease disease [facility] [id number] Erectile Problem Comm on dysfunctio Spirit n, - CHI unspecifie [facility] erectile [facility] dysfunctio Medica l n type Center Mixed Hyperlipid Problem Commo n hyperlipid emia, Spirit emia mixed [facility] Atrial +5th digit Problem Commo n fibrillati eff Spirit on 02/20/19*Ch - CHI ronic a-fib [facility] Chronic +5th digit Problem Comm on kidney eff Spirit disease 02/21/20*Ch - CHI stage 3 [facility] kidney [facility] disease, Medical stage 3 Center (moderate) Obstructiv Obstructiv Problem C ommon e sleep e sleep Spirit apnea apnea - [facility] [id number] Proteinuri Problem Com mon a, Spirit unspecifie - CHI d [facility] Renal Renal Problem Common disease disease Spirit [facility] Automatic History of Problem Co mmon implantabl implantabl Sp danya e cardiac e - CHI [facility] defibrilla cardiovert [facility] in er-[facility] situ llator Medical (ICD) Center placement [id number] Type 2 Problem Common diabetes Spirit mellitus - CHI [facility] with other diabetic [facility] kidney Medical complicati Center on [id number] Mild Problem Common intermitte [facility] nt asthma - CHI [facility] with acute [facility] [id number] Allergic Problem Commo n rhinitis, Spirit unspecifie [facility]spec[facility]ie Center d trigger [id number] Asthma Problem Commo n [id number] with COPD [facility] (chronic - CHI obstructiv [facility] pulmonary Medical disease) [place] [id number] Aphasia Problem Common [facility] Hypothyroi Hypothyroi Problem C [facility] dism dism [facility] Depression Depression Problem C [facility] [id number] Secondary Problem Comm on hyperparat [facility] hyroidism [facility] [id number] Vitamin D Problem Comm on deficiency [facility] disease [facility] Allergies, Adverse Reactions, Alerts Allergy Allergy Status Severity Reaction(s) Onset Inactive Treating Comm ents Source Name Type Date Date Clinician Ibuprofe Propensi Active Anaphylaxis 2016-05 M ethodi n ty to 06-21 adverse 00:00: Hospita reaction 00 l s to drug Iodine Propensi Active Swelling 2016-05 Method i And ty to 06-21 st Iodide adverse 00:00: Hospita Containi reaction 00 l ng s to Products drug Sulfa Propensi Active Itching 2016-05 Methodi (Sulfona ty to 06-21 st mide adverse 00:00: Hospita Antibiot reaction 00 l ics) s to drug Amoxicil Propensi Active Shortness Of 2016-05 Methodi justin ty to Breath 06-21 st adverse 00:00: Hospita reaction 00 l s to drug Aspirin Propensi Active Shortness Of 2017 M ethodi ty to Breath 06-21 st adverse 00:00: Hospita reaction 00 l s to drug Caffeine Propensi Active Shortness Of 2016-05 Methodi ty to Breath 06-21 st adverse 00:00: Hospita reaction 00 l s to drug Cephalex Propensi Active Anaphylaxis 2016-05 M ethodi in ty to 06-21 st adverse 00:00: Hospita reaction 00 l s to drug Codeine Propensi Active Rash 2016-05 Methodi ty to 06-21 st adverse 00:00: Hospita reaction 00 l s to drug Colchici Propensi Active Anaphylaxis 2016-05 M ethodi ne ty to 06-21 st adverse 00:00: Hospita reaction 00 l s to drug Dihydroc Propensi Active Shortness Of 2016-05 Methodi odeine ty to Breath 06-21 st adverse 00:00: Hospita reaction 00 l s to drug Hydrocor Propensi Active Anaphylaxis 2016-05 M ethodi tisone ty to 06-21 st Acetate adverse 00:00: Hospita reaction 00 l s to drug 8091 Drug Active Unknown Common allergy [facility] 463 Drug Active Unknown Common allergy [facility] phenobar phenobar Active Unknown Commo n bital bital [facility] [id number] Drug Active Unknown Common allergy [facility] amoxicil amoxicil Active Unknown Commo n justin / justin / Spirit clavulan clavulan - CHI ate ate [facility] ibuprofe ibuprofe Active Unknown Commo n n n [facility] 4570 Drug Active Unknown Common allergy [facility] colchici colchici Active Unknown Commo n ne ne [facility] acetamin acetamin Active Unknown Commo n ophen / ophen / Spirit hydrocod hydrocod - CHI one one [facility] Codeine Codeine Active Unknown [facility] Family History Family Member Diagnosis Comments Start Date Stop Date Source Natural father Hypertension [facility] Natural mother Stroke [facility] Natural sister Diabetes [facility] Social History Social Habit Start Date Stop Date Quantity Comments Source History of Common Spirit - Tobacco Use [facility] Alcohol intake 2017-04-28 2017-04-28 Current Church 00:00:00 00:00:00 non-drinker of Hospital alcohol (finding) Tobacco use and 2017-04-22 2017-04-22 Smokeless tobacco [facility] exposure 00:00:00 00:00:00 non-user Hospital Sex Assigned At [birth year] Church 00:00:00 00:00:00 Hospital Smoking Status Start Date Stop Date Source Never Smoker [facility] Medications Ordered Filled Start Stop Current Ordering Indication Dosage Frequency Signature Comments Components Source Medication Medication Date Date Medication? Clinician (SIG) Name Name Potassium Potassium 2021-05 No 1{capsu BID Potassium Chloride 20 Chloride 20 06-19 le} Chloride MEQ MEQ 00:00: 00:00 20 MEQ 00 :00 Potassium Potassium 2021-05- No 1{capsu BID Potassium Chloride 20 Chloride 20 06-1928 le} Chloride MEQ MEQ 00:00: 00:00 20 MEQ 00 :00 Zoloft 50 Zoloft 50 2021-0 No QD Zoloft 50 MG MG 7-01 MG 00:00: 00 Zoloft 50 Zoloft 50 2021-0 No QD Zoloft 50 MG MG 7-01 MG 00:00: 00 Zoloft 50 Zoloft 50 2021-0 No QD Zoloft 50 MG MG 7-01 MG 00:00: 00 Zoloft 50 Zoloft 50 2021-0 No QD Zoloft 50 MG MG 7-01 MG 00:00: 00 Zoloft 50 Zoloft 50 2021-0 No QD Zoloft 50 MG MG 7-01 MG 00:00: 00 Zoloft 50 Zoloft 50 2021-0 No QD Zoloft 50 MG MG 7-01 MG 00:00: 00 Zoloft 50 Zoloft 50 2021-0 No QD Zoloft 50 MG MG 7-01 MG 00:00: 00 Zoloft 50 Zoloft 50 2021-0 No QD Zoloft 50 MG MG 7-01 MG 00:00: 00 Zoloft 50 Zoloft 50 2021-0 No QD Zoloft 50 MG MG 7-01 MG 00:00: 00 Zoloft 50 Zoloft 50 2021-0 No QD Zoloft 50 MG MG 7-01 MG 00:00: 00 Zoloft 50 Zoloft 50 2021-0 No QD Zoloft 50 MG MG 7-01 MG 00:00: 00 valACYclovi valACYclovi 0 No 1{table TID valACYclov r HCl 1 GM r HCl 1 GM 8-20 t} ir HCl 1 00:00: GM 00 Lidocaine 4 Lidocaine 4 2020-0 No 1{appli BID Lidocaine % % 8-20 cation_ 4 % 00:00: as_need 00 ed} valACYclovi valACYclovi 2020-0 No 1{table TID valACYclov r HCl 1 GM r HCl 1 GM 8-20 t} ir HCl 1 00:00: GM 00 Lidocaine 4 Lidocaine 4 2020-0 No 1{appli BID Lidocaine % % 8-20 cation_ 4 % 00:00: as_need 00 ed} valACYclovi valACYclovi 0 No 1{table TID valACYclov r HCl 1 GM r HCl 1 GM 8-20 t} ir HCl 1 00:00: GM 00 Lidocaine 4 Lidocaine 4 2020-0 No 1{appli BID Lidocaine % % 8-20 cation_ 4 % 00:00: as_need 00 ed} Lidocaine 4 Lidocaine 4 2020-0 No 1{appli BID Lidocaine % % 8-20 cation_ 4 % 00:00: as_need 00 ed} valACYclovi valACYclovi 0 No 1{table TID valACYclov r HCl 1 GM r HCl 1 GM 8-20 t} ir HCl 1 00:00: GM 00 Lidocaine 4 Lidocaine 4 2020-0 No 1{appli BID Lidocaine % % 8-20 cation_ 4 % 00:00: as_need 00 ed} valACYclovi valACYclovi 2020-0 No 1{table TID valACYclov r HCl 1 GM r HCl 1 GM 8-20 t} ir HCl 1 00:00: GM 00 Lidocaine 4 Lidocaine 4 2020-0 No 1{appli BID Lidocaine % % 8-20 cation_ 4 % 00:00: as_need 00 ed} valACYclovi valACYclovi 2020-0 No 1{table TID valACYclov r HCl 1 GM r HCl 1 GM 8-20 t} ir HCl 1 00:00: GM 00 Lidocaine 4 Lidocaine 4 2020-0 No 1{appli BID Lidocaine % % 8-20 cation_ 4 % 00:00: as_need 00 ed} valACYclovi valACYclovi 0 No 1{table TID valACYclov r HCl 1 GM r HCl 1 GM 8-20 t} ir HCl 1 00:00: GM 00 Lidocaine 4 Lidocaine 4 2020-0 No 1{appli BID Lidocaine % % 8-20 cation_ 4 % 00:00: as_need 00 ed} valACYclovi valACYclovi 0 No 1{table TID valACYclov r HCl 1 GM r HCl 1 GM 8-20 t} ir HCl 1 00:00: GM 00 Lidocaine 4 Lidocaine 4 2020-0 No 1{appli BID Lidocaine % % 8-20 cation_ 4 % 00:00: as_need 00 ed} valACYclovi valACYclovi 0 No 1{table TID valACYclov r HCl 1 GM r HCl 1 GM 8-20 t} ir HCl 1 00:00: GM 00 Lidocaine 4 Lidocaine 4 2020-0 No 1{appli BID Lidocaine % % 8-20 cation_ 4 % 00:00: as_need 00 ed} valACYclovi valACYclovi 2020-0 No 1{table TID valACYclov r HCl 1 GM r HCl 1 GM 8-20 t} ir HCl 1 00:00: GM 00 valACYclovi valACYclovi 0 No 1{table TID valACYclov r HCl 1 GM r HCl 1 GM 8-20 t} ir HCl 1 00:00: GM 00 Lidocaine 4 Lidocaine 4 2020-0 No 1{appli BID Lidocaine % % 8-20 cation_ 4 % 00:00: as_need 00 ed} valACYclovi valACYclovi 0 No 1{table TID valACYclov r HCl 1 GM r HCl 1 GM 8-20 t} ir HCl 1 00:00: GM 00 Lidocaine 4 Lidocaine 4 2020-0 No 1{appli BID Lidocaine % % 8-20 cation_ 4 % 00:00: as_need 00 ed} valACYclovi valACYclovi No 1{table TID valACYclov r HCl 1 GM r HCl 1 GM 8-20 t} ir HCl 1 00:00: GM 00 Lidocaine 4 Lidocaine 4 2020-0 No 1{appli BID Lidocaine % % 8-20 cation_ 4 % 00:00: as_need 00 ed} Lidocaine 4 Lidocaine 4 2020-0 No 1{appli BID Lidocaine % % 8-20 cation_ 4 % 00:00: as_need 00 ed} valACYclovi valACYclovi No 1{table TID valACYclov r HCl 1 GM r HCl 1 GM 8-20 t} ir HCl 1 00:00: GM 00 Lidocaine 4 Lidocaine 4 2020- No 1{appli BID Lidocaine % % 8-20 cation_ 4 % 00:00: as_need 00 ed} valACYclovi valACYclovi No 1{table TID valACYclov r HCl 1 GM r HCl 1 GM 8-20 t} ir HCl 1 00:00: GM 00 Anoro Anoro 2020-1 No 1{puff} QD Anoro Ellipta Ellipta 0-21 Ellipta 62.5-25 62.5-25 00:00: 62.5-25 MCG/INH MCG/INH 00 MCG/INH Anoro Anoro 2020-1 No 1{puff} QD Anoro Ellipta Ellipta 0-21 Ellipta 62.5-25 62.5-25 00:00: 62.5-25 MCG/INH MCG/INH 00 MCG/INH Anoro Anoro 2020-1 No 1{puff} QD Anoro Ellipta Ellipta 0-21 Ellipta 62.5-25 62.5-25 00:00: 62.5-25 MCG/INH MCG/INH 00 MCG/INH Anoro Anoro 2020-1 No 1{puff} QD Anoro Ellipta Ellipta 0-21 Ellipta 62.5-25 62.5-25 00:00: 62.5-25 MCG/INH MCG/INH 00 MCG/INH Anoro Anoro 2020-1 No 1{puff} QD Anoro Ellipta Ellipta 0-21 Ellipta 62.5-25 62.5-25 00:00: 62.5-25 MCG/INH MCG/INH 00 MCG/INH Anoro Anoro 2019-05 No 1{puff} QD Anoro Ellipta Ellipta 0-21 Ellipta 62.5-25 62.5-25 00:00: 62.5-25 MCG/INH MCG/INH 00 MCG/INH Anoro Anoro 2019-05 No 1{puff} QD Anoro Ellipta Ellipta 0-21 Ellipta 62.5-25 62.5-25 00:00: 62.5-25 MCG/INH MCG/INH 00 MCG/INH Anoro Anoro 2019-05 No 1{puff} QD Anoro Ellipta Ellipta 0-21 Ellipta 62.5-25 62.5-25 00:00: 62.5-25 MCG/INH MCG/INH 00 MCG/INH Anoro Anoro 2019-05 No 1{puff} QD Anoro Ellipta Ellipta 0-21 Ellipta 62.5-25 62.5-25 00:00: 62.5-25 MCG/INH MCG/INH 00 MCG/INH Anoro Anoro 2019-05 No 1{puff} QD Anoro Ellipta Ellipta 0-21 Ellipta 62.5-25 62.5-25 00:00: 62.5-25 MCG/INH MCG/INH 00 MCG/INH Anoro Anoro 2019-05 No 1{puff} QD Anoro Ellipta Ellipta 0-21 Ellipta 62.5-25 62.5-25 00:00: 62.5-25 MCG/INH MCG/INH 00 MCG/INH Anoro Anoro 2019-05 No 1{puff} QD Anoro Ellipta Ellipta 0-21 Ellipta 62.5-25 62.5-25 00:00: 62.5-25 MCG/INH MCG/INH 00 MCG/INH Anoro Anoro 2019-05 No 1{puff} QD Anoro Ellipta Ellipta 0-21 Ellipta 62.5-25 62.5-25 00:00: 62.5-25 MCG/INH MCG/INH 00 MCG/INH Anoro Anoro 2019-05 No 1{puff} QD Anoro Ellipta Ellipta 0-21 Ellipta 62.5-25 62.5-25 00:00: 62.5-25 MCG/INH MCG/INH 00 MCG/INH Anoro Anoro 2019-05 No 1{puff} QD Anoro Ellipta Ellipta 0-21 Ellipta 62.5-25 62.5-25 00:00: 62.5-25 MCG/INH MCG/INH 00 MCG/INH Ventolin Ventolin Yes Adolfo 2 puffs as Common HFA HFA 2-12 Cardona needed Spirit 00:00: - CHI 00 [facility] cyclobenzap 2016-05 Yes 10mg [id number] Take 10 mg Methodi rine 2-06 [id number] mouth [address] (FLEXERIL) 14:50: 3D (three) Hosp red 10 mg 46 times a l tablet day. tamsulosin 2016-05 Yes .4mg QD Take 0.4 Met hodi (FLOMAX) 2-[address] 0.4 mg 14:50: mouth Hospita capsule,ext 46 daily. l ended release 24hr potassium 2016-05 Yes 20meq Q.5D Take 20 Meth danielle chloride 2-[address] (KLOR-CON) 14:50: mouth 2 Hosp red 20 mEq 46 (two) l packet times a day. furosemide 2016-05 Yes 80mg Q.5D Take 80 mg M ethodi (LASIX) 40 2-[address] mg tablet 14:50: (two) Hospita 46 times a l day. pravastatin 2016-05 Yes 40mg QD Take 40 mg Methodi (PRAVACHOL) 2-[address] 40 MG 14:50: daily. Hospita tablet 46 l pantoprazol 2016-05 Yes 40mg QD Take 40 mg Methodi e 2-[address] (PROTONIX) 14:50: daily. Hospi ta 40 MG EC 46 l tablet levothyroxi 2016-05 Yes 137ug QD Take 137 M ethodi ne 2-[address] (SYNTHROID, 14:50: mouth Hospi ta LEVOXYL) 46 every l 137 mcg morning. tablet liraglutide 2016-05 Yes .6mg QD Inject 0.6 Methodi (VICTOZA) 2-[address] 0.6 mg/0.1 14:50: the skin Hos syed mL (18 mg/3 46 daily with l mL) pen breakfast. injector rivaroxaban 2016-05 Yes 15mg QD Take 15 mg Methodi (XARELTO) 2-[address] 15 mg 14:50: daily. Hospita tablet 46 l allopurinol 2016-05 Yes 200mg Q.5D Take 200 M ethodi (ZYLOPRIM) 2-[address] 100 MG 14:50: mouth 2 Hospita tablet 46 (two) l times a day. Coreg Coreg Yes Adolfo as Common Cardona directed [facility] Flomax Flomax Yes Adolfo 1 capsule Comm on Cardona [facility] Bumetanide Bumetanide Yes Adolfo take 0.5 Common Cardona tab [facility] ProAir HFA ProAir HFA Yes Adolfo 2 puffs as Common Cardona needed [facility] GlipiZIDE GlipiZIDE Yes Adolfo 1 tablet Common ER ER Cardona with [facility] Pantoprazol Pantoprazol Yes Adolfo 1 tablet Common e Sodium e Sodium Cardona [facility] Symbicort Symbicort Yes Adolfo 2 puffs Common Cardona [facility] Levothyroxi Levothyroxi Yes Adolfo 1 tablet Common ne Sodium ne Sodium Cardona on an Spi rit empty - CHI stomach in [facility] Zyrtec Zyrtec Yes Adolfo 1 tablet Commo n Allergy Allergy Cardona [facility] Victoza Victoza Yes Adolfo not Common Cardona defined [facility] Xarelto Xarelto Yes Adolfo 1 tablet Com mon Cardona with food [facility] NovoFine NovoFine Yes Adolfo as Commo n Plus Plus Cardona directed [facility] Vitamin D3 Vitamin D3 Yes Adolfo not C ommon Cardona defined [facility] Aspirin Aspirin Yes Adolfo 1 tablet Com mon Adult Low Adult Low Cardona Spir it Dose Dose [facility] Pravastatin Pravastatin Yes Adolfo 1 tablet Common Sodium Sodium Cardona [facility] Allopurinol Allopurinol Yes Adolfo 2 tablets Common Cardona [facility] Calcitriol Calcitriol Yes Adolfo 1 capsule Common Cardona [facility] Clopidogrel Clopidogrel Yes Adolfo TAKE ONE Common Bisulfate Bisulfate Cardona (1) Spir it TABLET(S) - CHI BY MOUTH [facility] Xarelto Xarelto Yes Adolfo TAKE 1 Commo n Cardona TABLET Spirit DAILY WITH - CHI FOOD [facility] PredniSONE PredniSONE Yes Adolfo 1 tablet Common Cardona Spirit - CHI [facility] Pantoprazol Pantoprazol Yes Adolfo TAKE 1 Common e Sodium e Sodium Cardona TABLET Spir it DAILY - CHI [facility] Levothyroxi Levothyroxi Yes Adolfo TAKE 1 Common ne Sodium ne Sodium Cardona TABLET Sp danya DAILY IN - CHI THE MORNING ON [facility] AN EMPTY Medical STOMACH Center Bumetanide Bumetanide No BID Bumetanide 2 MG 2 MG 2 MG Flomax 0.4 Flomax 0.4 No 1{capsu QD Flomax 0.4 MG MG le} MG Vitamin D3 Vitamin D3 No Vitamin D3 Allopurinol Allopurinol No 2{table QD Allopurino 100 MG 100 MG ts} l 100 MG Victoza 18 Victoza 18 No Victoza 18 MG/3ML MG/3ML MG/3ML Xarelto 15 Xarelto 15 No 1{table QD Xarelto 15 MG MG t_with_ MG food} Pravastatin Pravastatin No Pravastati Sodium 40 Sodium 40 n Sodium MG MG 40 MG Levothyroxi Levothyroxi No QD Levothyrox ne Sodium ne Sodium ine Sodium 137 MCG 137 MCG 137 MCG Ventolin Ventolin No Ventolin HFA 108 (90 HFA 108 (90 HFA 108 Base) Base) (90 Base) MCG/ACT MCG/ACT MCG/ACT Pantoprazol Pantoprazol No Pantoprazo e Sodium 40 e Sodium 40 le Sodium mg mg 40 mg Levothyroxi Levothyroxi No Levothyrox ne Sodium ne Sodium ine Sodium 137 MCG 137 MCG 137 MCG Calcitriol Calcitriol No 1{capsu Calcitriol 0.5 MCG 0.5 MCG le} 0.5 MCG BD Pen BD Pen No BD Pen Needle Noemi Needle Noemi Needle U/F 32G X 4 U/F 32G X 4 Noemi U/F MM MM 32G X 4 MM Victoza 18 Victoza 18 No Victoza 18 MG/3ML MG/3ML MG/3ML NovoFine NovoFine No NovoFine Plus 32G X Plus 32G X Plus 32G X 4 MM 4 MM 4 MM Clopidogrel Clopidogrel No Clopidogre Bisulfate Bisulfate l 75 MG 75 MG Bisulfate 75 MG Pantoprazol Pantoprazol No 1{table QD Pantoprazo e Sodium 40 e Sodium 40 t} le Sodium MG MG 40 MG glipiZIDE glipiZIDE No 1{table BID glipiZIDE ER 2.5 MG ER 2.5 MG t_with_ ER 2.5 MG food} ProAir HFA ProAir HFA No 2{puffs QID ProAir HFA 108 (90 108 (90 _as_nee 108 (90 Base) Base) ded} Base) MCG/ACT MCG/ACT MCG/ACT glipiZIDE glipiZIDE No 1{table BID glipiZIDE ER 2.5 MG ER 2.5 MG t_with_ ER 2.[address]} Pravastatin Pravastatin No 1{table QD Pravastati Sodium 40 Sodium 40 t} n Sodium MG MG 40 MG ZyrTEC ZyrTEC No 1{table QD ZyrTEC Allergy 10 Allergy 10 t} Allergy 10 MG MG MG Aspirin Aspirin No 1{table QD Aspirin Adult Low Adult Low t} Adult Low Dose 81 MG Dose 81 MG Dose 81 MG Bumetanide Bumetanide No BID Bumetanide 2 MG 2 MG 2 MG Allopurinol Allopurinol No 2{table QD Allopurino 100 MG 100 MG ts} l 100 MG Vitamin D3 Vitamin D3 No Vitamin D3 Pantoprazol Pantoprazol No 1{table QD Pantoprazo e Sodium 40 e Sodium 40 t} le Sodium MG MG 40 MG Pravastatin Pravastatin No Pravastati Sodium 40 Sodium 40 n Sodium MG MG 40 MG Xarelto 15 Xarelto 15 No 1{table QD Xarelto 15 MG MG t_with_ MG food} Tamsulosin Tamsulosin No Tamsulosin HCl 0.4 mg HCl 0.4 mg HCl 0.4 mg Levothyroxi Levothyroxi No QD Levothyrox ne Sodium ne Sodium ine Sodium 137 MCG 137 MCG 137 MCG Victoza 18 Victoza 18 No Victoza 18 MG/3ML MG/3ML MG/3ML Pantoprazol Pantoprazol No Pantoprazo e Sodium 40 e Sodium 40 le Sodium mg mg 40 mg Levothyroxi Levothyroxi No Levothyrox ne Sodium ne Sodium ine Sodium 137 MCG 137 MCG 137 MCG Calcitriol Calcitriol No 1{capsu Calcitriol 0.5 MCG 0.5 MCG le} 0.5 MCG Clopidogrel Clopidogrel No Clopidogre Bisulfate Bisulfate l 75 MG 75 MG Bisulfate 75 MG glipiZIDE glipiZIDE No 1{table BID glipiZIDE ER 2.5 MG ER 2.5 MG t_with_ ER 2.[address]} NovoFine NovoFine No NovoFine Plus 32G X Plus 32G X Plus 32G X 4 MM 4 MM 4 MM Ventolin Ventolin No Ventolin HFA 108 (90 HFA 108 (90 HFA 108 Base) Base) (90 Base) MCG/ACT MCG/ACT MCG/ACT BD Pen BD Pen No BD Pen Needle Noemi Needle Noemi Needle U/F 32G X 4 U/F 32G X 4 Noemi U/F MM MM 32G X 4 MM Victoza 18 Victoza 18 No Victoza 18 MG/3ML MG/3ML MG/3ML ProAir HFA ProAir HFA No 2{puffs QID ProAir HFA 108 (90 108 (90 _as_nee 108 (90 Base) Base) ded} Base) MCG/ACT MCG/ACT MCG/ACT glipiZIDE glipiZIDE No 1{table BID glipiZIDE ER 2.5 MG ER 2.5 MG t_with_ ER 2.5 MG food} Pravastatin Pravastatin No 1{table QD Pravastati Sodium 40 Sodium 40 t} n Sodium MG MG 40 MG ZyrTEC ZyrTEC No 1{table QD ZyrTEC Allergy 10 Allergy 10 t} Allergy 10 MG MG MG Aspirin Aspirin No 1{table QD Aspirin Adult Low Adult Low t} Adult Low Dose 81 MG Dose 81 MG Dose 81 MG Bumetanide Bumetanide No BID Bumetanide 2 MG 2 MG 2 MG Levothyroxi Levothyroxi No QD Levothyrox ne Sodium ne Sodium ine Sodium 137 MCG 137 MCG 137 MCG Vitamin D3 Vitamin D3 No Vitamin D3 Allopurinol Allopurinol No 2{table QD Allopurino 100 MG 100 MG ts} l 100 MG Pravastatin Pravastatin No Pravastati Sodium 40 Sodium 40 n Sodium MG MG 40 MG Tamsulosin Tamsulosin No Tamsulosin HCl 0.4 mg HCl 0.4 mg HCl 0.4 mg Xarelto 15 Xarelto 15 No 1{table QD Xarelto 15 MG MG t_with_ MG food} Ventolin Ventolin No Ventolin HFA 108 (90 HFA 108 (90 HFA 108 Base) Base) (90 Base) MCG/ACT MCG/ACT MCG/ACT Pantoprazol Pantoprazol No Pantoprazo e Sodium 40 e Sodium 40 le Sodium mg mg 40 mg Pravastatin Pravastatin No 1{table QD Pravastati Sodium 40 Sodium 40 t} n Sodium MG MG 40 MG Calcitriol Calcitriol No 1{capsu Calcitriol 0.5 MCG 0.5 MCG le} 0.5 MCG BD Pen BD Pen No BD Pen Needle Noemi Needle Noemi Needle U/F 32G X 4 U/F 32G X 4 Noemi U/F MM MM 32G X 4 MM glipiZIDE glipiZIDE No 1{table BID glipiZIDE ER 2.5 MG ER 2.5 MG t_with_ ER 2.[address]} NovoFine NovoFine No NovoFine Plus 32G X Plus 32G X Plus 32G X 4 MM 4 MM 4 MM Clopidogrel Clopidogrel No Clopidogre Bisulfate Bisulfate l 75 MG 75 MG Bisulfate 75 MG Pantoprazol Pantoprazol No 1{table QD Pantoprazo e Sodium 40 e Sodium 40 t} le Sodium MG MG 40 MG Levothyroxi Levothyroxi No Levothyrox ne Sodium ne Sodium ine Sodium 137 MCG 137 MCG 137 MCG ProAir HFA ProAir HFA No 2{puffs QID ProAir HFA 108 (90 108 (90 _as_nee 108 (90 Base) Base) ded} Base) MCG/ACT MCG/ACT MCG/ACT glipiZIDE glipiZIDE No 1{table BID glipiZIDE ER 2.5 MG ER 2.5 MG t_with_ ER 2.5 MG food} Aspirin Aspirin No 1{table QD Aspirin Adult Low Adult Low t} Adult Low Dose 81 MG Dose 81 MG Dose 81 MG ZyrTEC ZyrTEC No 1{table QD ZyrTEC Allergy 10 Allergy 10 t} Allergy 10 MG MG MG Victoza 18 Victoza 18 No Victoza 18 MG/3ML MG/3ML MG/3ML glipiZIDE glipiZIDE No 1{table BID glipiZIDE ER 2.5 MG ER 2.5 MG t_with_ ER 2.[address]} BD Pen BD Pen No BD Pen Needle Noemi Needle Noemi Needle U/F 32G X 4 U/F 32G X 4 Noemi U/F MM MM 32G X 4 MM Allopurinol Allopurinol No 2{table QD Allopurino 100 MG 100 MG ts} l 100 MG Pravastatin Pravastatin No 1{table QD Pravastati Sodium 40 Sodium 40 t} n Sodium MG MG 40 MG Ventolin Ventolin No Ventolin HFA 108 (90 HFA 108 (90 HFA 108 Base) Base) (90 Base) MCG/ACT MCG/ACT MCG/ACT Levothyroxi Levothyroxi No QD Levothyrox ne Sodium ne Sodium ine Sodium 137 MCG 137 MCG 137 MCG Pantoprazol Pantoprazol No 1{table QD Pantoprazo e Sodium 40 e Sodium 40 t} le Sodium MG MG 40 MG Bumetanide Bumetanide No BID Bumetanide 2 MG 2 MG 2 MG ZyrTEC ZyrTEC No 1{table QD ZyrTEC Allergy 10 Allergy 10 t} Allergy 10 MG MG MG Tamsulosin Tamsulosin No Tamsulosin HCl 0.4 mg HCl 0.4 mg HCl 0.4 mg Xarelto 15 Xarelto 15 No 1{table QD Xarelto 15 MG MG t_with_ MG food} Aspirin Aspirin No 1{table QD Aspirin Adult Low Adult Low t} Adult Low Dose 81 MG Dose 81 MG Dose 81 MG Calcitriol Calcitriol No 1{capsu Calcitriol 0.5 MCG 0.5 MCG le} 0.5 MCG Vitamin D3 Vitamin D3 No Vitamin D3 Clopidogrel Clopidogrel No Clopidogre Bisulfate Bisulfate l 75 MG 75 MG Bisulfate 75 MG ProAir HFA ProAir HFA No 2{puffs QID ProAir HFA 108 (90 108 (90 _as_nee 108 (90 Base) Base) ded} Base) MCG/ACT MCG/ACT MCG/ACT NovoFine NovoFine No NovoFine Plus 32G X Plus 32G X Plus 32G X 4 MM 4 MM 4 MM Victoza 18 Victoza 18 No Victoza 18 MG/3ML MG/3ML MG/3ML Flomax 0.4 Flomax 0.4 No 1{capsu QD Flomax 0.4 MG MG le} MG Victoza 18 Victoza 18 No Victoza 18 MG/3ML MG/3ML MG/3ML BD Pen BD Pen No BD Pen Needle Noemi Needle Noemi Needle U/F 32G X 4 U/F 32G X 4 Noemi U/F MM MM 32G X 4 MM NovoFine NovoFine No NovoFine Plus 32G X Plus 32G X Plus 32G X 4 MM 4 MM 4 MM Ventolin Ventolin No Ventolin HFA 108 (90 HFA 108 (90 HFA 108 Base) Base) (90 Base) MCG/ACT MCG/ACT MCG/ACT Xarelto 15 Xarelto 15 No 1{table QD Xarelto 15 MG MG t_with_ MG food} Pravastatin Pravastatin No Pravastati Sodium 40 Sodium 40 n Sodium mg mg 40 mg Levothyroxi Levothyroxi No QD Levothyrox ne Sodium ne Sodium ine Sodium 137 MCG 137 MCG 137 MCG Allopurinol Allopurinol No 2{table QD Allopurino 100 MG 100 MG ts} l 100 MG Bumetanide Bumetanide No BID Bumetanide 2 MG 2 MG 2 MG ZyrTEC ZyrTEC No 1{table QD ZyrTEC Allergy 10 Allergy 10 t} Allergy 10 MG MG MG Clopidogrel Clopidogrel No Clopidogre Bisulfate Bisulfate l 75 MG 75 MG Bisulfate 75 MG Tamsulosin Tamsulosin No Tamsulosin HCl 0.4 mg HCl 0.4 mg HCl 0.4 mg Aspirin Aspirin No 1{table QD Aspirin Adult Low Adult Low t} Adult Low Dose 81 MG Dose 81 MG Dose 81 MG Victoza 18 Victoza 18 No Victoza 18 MG/3ML MG/3ML MG/3ML ProAir HFA ProAir HFA No 2{puffs QID ProAir HFA 108 (90 108 (90 _as_nee 108 (90 Base) Base) ded} Base) MCG/ACT MCG/ACT MCG/ACT Vitamin D3 Vitamin D3 No Vitamin D3 Pantoprazol Pantoprazol No 1{table QD Pantoprazo e Sodium 40 e Sodium 40 t} le Sodium MG MG 40 MG Calcitriol Calcitriol No 1{capsu Calcitriol 0.5 MCG 0.5 MCG le} 0.5 MCG Victoza 18 Victoza 18 No Victoza 18 MG/3ML MG/3ML MG/3ML Flomax 0.4 Flomax 0.4 No 1{capsu QD Flomax 0.4 MG MG le} MG glipiZIDE glipiZIDE No 1{table BID glipiZIDE ER 2.5 MG ER 2.5 MG t_with_ ER 2.[address]} BD Pen BD Pen No BD Pen Needle Noemi Needle Noemi Needle U/F 32G X 4 U/F 32G X 4 Noemi U/F MM MM 32G X 4 MM NovoFine NovoFine No NovoFine Plus 32G X Plus 32G X Plus 32G X 4 MM 4 MM 4 MM Ventolin Ventolin No Ventolin HFA 108 (90 HFA 108 (90 HFA 108 Base) Base) (90 Base) MCG/ACT MCG/ACT MCG/ACT Vitamin D3 Vitamin D3 No Vitamin D3 Pravastatin Pravastatin No Pravastati Sodium 40 Sodium 40 n Sodium mg mg 40 mg Levothyroxi Levothyroxi No QD Levothyrox ne Sodium ne Sodium ine Sodium 137 MCG 137 MCG 137 MCG Allopurinol Allopurinol No 2{table QD Allopurino 100 MG 100 MG ts} l 100 MG Bumetanide Bumetanide No BID Bumetanide 2 MG 2 MG 2 MG ZyrTEC ZyrTEC No 1{table QD ZyrTEC Allergy 10 Allergy 10 t} Allergy 10 MG MG MG Tamsulosin Tamsulosin No Tamsulosin HCl 0.4 mg HCl 0.4 mg HCl 0.4 mg Xarelto 15 Xarelto 15 No 1{table QD Xarelto 15 MG MG t_with_ MG food} Aspirin Aspirin No 1{table QD Aspirin Adult Low Adult Low t} Adult Low Dose 81 MG Dose 81 MG Dose 81 MG ProAir HFA ProAir HFA No 2{puffs QID ProAir HFA 108 (90 108 (90 _as_nee 108 (90 Base) Base) ded} Base) MCG/ACT MCG/ACT MCG/ACT glipiZIDE glipiZIDE No glipiZIDE ER 2.5 MG ER 2.5 MG ER 2.5 MG Clopidogrel Clopidogrel No Clopidogre Bisulfate Bisulfate l 75 MG 75 MG Bisulfate 75 MG Pantoprazol Pantoprazol No 1{table QD Pantoprazo e Sodium 40 e Sodium 40 t} le Sodium MG MG 40 MG Calcitriol Calcitriol No 1{capsu Calcitriol 0.5 MCG 0.5 MCG le} 0.5 MCG Victoza 18 Victoza 18 No Victoza 18 MG/3ML MG/3ML MG/3ML Flomax 0.4 Flomax 0.4 No 1{capsu QD Flomax 0.4 MG MG le} MG Victoza 18 Victoza 18 No Victoza 18 MG/3ML MG/3ML MG/3ML BD Pen BD Pen No BD Pen Needle Noemi Needle Noemi Needle U/F 32G X 4 U/F 32G X 4 Noemi U/F MM MM 32G X 4 MM NovoFine NovoFine No NovoFine Plus 32G X Plus 32G X Plus 32G X 4 MM 4 MM 4 MM Ventolin Ventolin No Ventolin HFA 108 (90 HFA 108 (90 HFA 108 Base) Base) (90 Base) MCG/ACT MCG/ACT MCG/ACT Vitamin D3 Vitamin D3 No Vitamin D3 Pravastatin Pravastatin No Pravastati Sodium 40 Sodium 40 n Sodium mg mg 40 mg Levothyroxi Levothyroxi No QD Levothyrox ne Sodium ne Sodium ine Sodium 137 MCG 137 MCG 137 MCG Allopurinol Allopurinol No 2{table QD Allopurino 100 MG 100 MG ts} l 100 MG Bumetanide Bumetanide No BID Bumetanide 2 MG 2 MG 2 MG ZyrTEC ZyrTEC No 1{table QD ZyrTEC Allergy 10 Allergy 10 t} Allergy 10 MG MG MG Tamsulosin Tamsulosin No Tamsulosin HCl 0.4 mg HCl 0.4 mg HCl 0.4 mg Xarelto 15 Xarelto 15 No 1{table QD Xarelto 15 MG MG t_with_ MG food} Aspirin Aspirin No 1{table QD Aspirin Adult Low Adult Low t} Adult Low Dose 81 MG Dose 81 MG Dose 81 MG ProAir HFA ProAir HFA No 2{puffs QID ProAir HFA 108 (90 108 (90 _as_nee 108 (90 Base) Base) ded} Base) MCG/ACT MCG/ACT MCG/ACT glipiZIDE glipiZIDE No glipiZIDE ER 2.5 MG ER 2.5 MG ER 2.5 MG Clopidogrel Clopidogrel No Clopidogre Bisulfate Bisulfate l 75 MG 75 MG Bisulfate 75 MG Pantoprazol Pantoprazol No 1{table QD Pantoprazo e Sodium 40 e Sodium 40 t} le Sodium MG MG 40 MG Calcitriol Calcitriol No 1{capsu Calcitriol 0.5 MCG 0.5 MCG le} 0.5 MCG Victoza 18 Victoza 18 No Victoza 18 MG/3ML MG/3ML MG/3ML Flomax 0.4 Flomax 0.4 No 1{capsu QD Flomax 0.4 MG MG le} MG Victoza 18 Victoza 18 No Victoza 18 MG/3ML MG/3ML MG/3ML Vitamin D3 Vitamin D3 No Vitamin D3 Allopurinol Allopurinol No 2{table QD Allopurino 100 MG 100 MG ts} l 100 MG Pravastatin Pravastatin No Pravastati Sodium 40 Sodium 40 n Sodium mg mg 40 mg Pantoprazol Pantoprazol No 1{table QD Pantoprazo e Sodium 40 e Sodium 40 t} le Sodium MG MG 40 MG Xarelto 15 Xarelto 15 No 1{table QD Xarelto 15 MG MG t_with_ MG food} glipiZIDE glipiZIDE No glipiZIDE ER 2.5 MG ER 2.5 MG ER 2.5 MG Tamsulosin Tamsulosin No Tamsulosin HCl 0.4 mg HCl 0.4 mg HCl 0.4 mg Levothyroxi Levothyroxi No Levothyrox ne Sodium ne Sodium ine Sodium 137 MCG 137 MCG 137 MCG ProAir HFA ProAir HFA No 2{puffs QID ProAir HFA 108 (90 108 (90 _as_nee 108 (90 Base) Base) ded} Base) MCG/ACT MCG/ACT MCG/ACT BD Pen BD Pen No BD Pen Needle Noemi Needle Noemi Needle U/F 32G X 4 U/F 32G X 4 Noemi U/F MM MM 32G X 4 MM Bumetanide Bumetanide No BID Bumetanide 2 MG 2 MG 2 MG Calcitriol Calcitriol No 1{capsu Calcitriol 0.5 MCG 0.5 MCG le} 0.5 MCG Ventolin Ventolin No Ventolin HFA 108 (90 HFA 108 (90 HFA 108 Base) Base) (90 Base) MCG/ACT MCG/ACT MCG/ACT Victoza 18 Victoza 18 No Victoza 18 MG/3ML MG/3ML MG/3ML Victoza 18 Victoza 18 No Victoza 18 MG/3ML MG/3ML MG/3ML ZyrTEC ZyrTEC No 1{table QD ZyrTEC Allergy 10 Allergy 10 t} Allergy 10 MG MG MG Flomax 0.4 Flomax 0.4 No 1{capsu QD Flomax 0.4 MG MG le} MG NovoFine NovoFine No NovoFine Plus 32G X Plus 32G X Plus 32G X 4 MM 4 MM 4 MM Clopidogrel Clopidogrel No Clopidogre Bisulfate Bisulfate l 75 MG 75 MG Bisulfate 75 MG Aspirin Aspirin No 1{table QD Aspirin Adult Low Adult Low t} Adult Low Dose 81 MG Dose 81 MG Dose 81 MG Vitamin D3 Vitamin D3 No Vitamin D3 Allopurinol Allopurinol No 2{table QD Allopurino 100 MG 100 MG ts} l 100 MG Pravastatin Pravastatin No Pravastati Sodium 40 Sodium 40 n Sodium mg mg 40 mg Pantoprazol Pantoprazol No 1{table QD Pantoprazo e Sodium 40 e Sodium 40 t} le Sodium MG MG 40 MG Xarelto 15 Xarelto 15 No 1{table QD Xarelto 15 MG MG t_with_ MG food} glipiZIDE glipiZIDE No glipiZIDE ER 2.5 MG ER 2.5 MG ER 2.5 MG Tamsulosin Tamsulosin No Tamsulosin HCl 0.4 mg HCl 0.4 mg HCl 0.4 mg Levothyroxi Levothyroxi No Levothyrox ne Sodium ne Sodium ine Sodium 137 MCG 137 MCG 137 MCG ProAir HFA ProAir HFA No 2{puffs QID ProAir HFA 108 (90 108 (90 _as_nee 108 (90 Base) Base) ded} Base) MCG/ACT MCG/ACT MCG/ACT BD Pen BD Pen No BD Pen Needle Noemi Needle Noemi Needle U/F 32G X 4 U/F 32G X 4 Noemi U/F MM MM 32G X 4 MM Bumetanide Bumetanide No BID Bumetanide 2 MG 2 MG 2 MG Calcitriol Calcitriol No 1{capsu Calcitriol 0.5 MCG 0.5 MCG le} 0.5 MCG Ventolin Ventolin No Ventolin HFA 108 (90 HFA 108 (90 HFA 108 Base) Base) (90 Base) MCG/ACT MCG/ACT MCG/ACT Victoza 18 Victoza 18 No Victoza 18 MG/3ML MG/3ML MG/3ML Victoza 18 Victoza 18 No Victoza 18 MG/3ML MG/3ML MG/3ML ZyrTEC ZyrTEC No 1{table QD ZyrTEC Allergy 10 Allergy 10 t} Allergy 10 MG MG MG Flomax 0.4 Flomax 0.4 No 1{capsu QD Flomax 0.4 MG MG le} MG NovoFine NovoFine No NovoFine Plus 32G X Plus 32G X Plus 32G X 4 MM 4 MM 4 MM Clopidogrel Clopidogrel No Clopidogre Bisulfate Bisulfate l 75 MG 75 MG Bisulfate 75 MG Aspirin Aspirin No 1{table QD Aspirin Adult Low Adult Low t} Adult Low Dose 81 MG Dose 81 MG Dose 81 MG Vitamin D3 Vitamin D3 No Vitamin D3 Pravastatin Pravastatin No Pravastati Sodium 40 Sodium 40 n Sodium mg mg 40 mg Allopurinol Allopurinol No 2{table QD Allopurino 100 MG 100 MG ts} l 100 MG Xarelto 15 Xarelto 15 No 1{table QD Xarelto 15 MG MG t_with_ MG food} glipiZIDE glipiZIDE No glipiZIDE ER 2.5 MG ER 2.5 MG ER 2.5 MG Tamsulosin Tamsulosin No Tamsulosin HCl 0.4 mg HCl 0.4 mg HCl 0.4 mg Levothyroxi Levothyroxi No Levothyrox ne Sodium ne Sodium ine Sodium 137 MCG 137 MCG 137 MCG ProAir HFA ProAir HFA No 2{puffs QID ProAir HFA 108 (90 108 (90 _as_nee 108 (90 Base) Base) ded} Base) MCG/ACT MCG/ACT MCG/ACT BD Pen BD Pen No BD Pen Needle Noemi Needle Noemi Needle U/F 32G X 4 U/F 32G X 4 Noemi U/F MM MM 32G X 4 MM Bumetanide Bumetanide No BID Bumetanide 2 MG 2 MG 2 MG Calcitriol Calcitriol No 1{capsu Calcitriol 0.5 MCG 0.5 MCG le} 0.5 MCG Ventolin Ventolin No Ventolin HFA 108 (90 HFA 108 (90 HFA 108 Base) Base) (90 Base) MCG/ACT MCG/ACT MCG/ACT Victoza 18 Victoza 18 No Victoza 18 MG/3ML MG/3ML MG/3ML Victoza 18 Victoza 18 No Victoza 18 MG/3ML MG/3ML MG/3ML ZyrTEC ZyrTEC No 1{table QD ZyrTEC Allergy 10 Allergy 10 t} Allergy 10 MG MG MG Pantoprazol Pantoprazol No 1{table QD Pantoprazo e Sodium 40 e Sodium 40 t} le Sodium MG MG 40 MG NovoFine NovoFine No NovoFine Plus 32G X Plus 32G X Plus 32G X 4 MM 4 MM 4 MM Clopidogrel Clopidogrel No Clopidogre Bisulfate Bisulfate l 75 MG 75 MG Bisulfate 75 MG Aspirin Aspirin No 1{table QD Aspirin Adult Low Adult Low t} Adult Low Dose 81 MG Dose 81 MG Dose 81 MG Calcitriol Calcitriol No 1{capsu Calcitriol 0.5 MCG 0.5 MCG le} 0.5 MCG Clopidogrel Clopidogrel No Clopidogre Bisulfate Bisulfate l 75 MG 75 MG Bisulfate 75 MG Bumetanide Bumetanide No BID Bumetanide 2 MG 2 MG 2 MG Vitamin D3 Vitamin D3 No Vitamin D3 Pantoprazol Pantoprazol No Pantoprazo e Sodium 40 e Sodium 40 le Sodium mg mg 40 mg Pravastatin Pravastatin No Pravastati Sodium 40 Sodium 40 n Sodium mg mg 40 mg ZyrTEC ZyrTEC No 1{table QD ZyrTEC Allergy 10 Allergy 10 t} Allergy 10 MG MG MG Tamsulosin Tamsulosin No Tamsulosin HCl 0.4 mg HCl 0.4 mg HCl 0.4 mg Allopurinol Allopurinol No Allopurino 100 mg 100 mg l 100 mg BD Pen BD Pen No BD Pen Needle Noemi Needle Noemi Needle U/F 32G X 4 U/F 32G X 4 Noemi U/F MM MM 32G X 4 MM Victoza 18 Victoza 18 No Victoza 18 MG/3ML MG/3ML MG/3ML Ventolin Ventolin No Ventolin HFA 108 (90 HFA 108 (90 HFA 108 Base) Base) (90 Base) MCG/ACT MCG/ACT MCG/ACT Levothyroxi Levothyroxi No Levothyrox ne Sodium ne Sodium ine Sodium 137 MCG 137 MCG 137 MCG NovoFine NovoFine No NovoFine Plus 32G X Plus 32G X Plus 32G X 4 MM 4 MM 4 MM Victoza 18 Victoza 18 No Victoza 18 MG/3ML MG/3ML MG/3ML ProAir HFA ProAir HFA No 2{puffs QID ProAir HFA 108 (90 108 (90 _as_nee 108 (90 Base) Base) ded} Base) MCG/ACT MCG/ACT MCG/ACT Xarelto 15 Xarelto 15 No 1{table QD Xarelto 15 MG MG t_with_ MG food} Aspirin Aspirin No 1{table QD Aspirin Adult Low Adult Low t} Adult Low Dose 81 MG Dose 81 MG Dose 81 MG glipiZIDE glipiZIDE No glipiZIDE ER 2.5 mg ER 2.5 mg ER 2.5 mg Calcitriol Calcitriol No 1{capsu Calcitriol 0.5 MCG 0.5 MCG le} 0.5 MCG Clopidogrel Clopidogrel No Clopidogre Bisulfate Bisulfate l 75 MG 75 MG Bisulfate 75 MG Bumetanide Bumetanide No BID Bumetanide 2 MG 2 MG 2 MG Vitamin D3 Vitamin D3 No Vitamin D3 Pantoprazol Pantoprazol No Pantoprazo e Sodium 40 e Sodium 40 le Sodium mg mg 40 mg Pravastatin Pravastatin No Pravastati Sodium 40 Sodium 40 n Sodium mg mg 40 mg ZyrTEC ZyrTEC No 1{table QD ZyrTEC Allergy 10 Allergy 10 t} Allergy 10 MG MG MG Tamsulosin Tamsulosin No Tamsulosin HCl 0.4 mg HCl 0.4 mg HCl 0.4 mg Allopurinol Allopurinol No Allopurino 100 mg 100 mg l 100 mg BD Pen BD Pen No BD Pen Needle Noemi Needle Noemi Needle U/F 32G X 4 U/F 32G X 4 Noemi U/F MM MM 32G X 4 MM Victoza 18 Victoza 18 No Victoza 18 MG/3ML MG/3ML MG/3ML Ventolin Ventolin No Ventolin HFA 108 (90 HFA 108 (90 HFA 108 Base) Base) (90 Base) MCG/ACT MCG/ACT MCG/ACT Levothyroxi Levothyroxi No Levothyrox ne Sodium ne Sodium ine Sodium 137 MCG 137 MCG 137 MCG NovoFine NovoFine No NovoFine Plus 32G X Plus 32G X Plus 32G X 4 MM 4 MM 4 MM Victoza 18 Victoza 18 No Victoza 18 MG/3ML MG/3ML MG/3ML ProAir HFA ProAir HFA No 2{puffs QID ProAir HFA 108 (90 108 (90 _as_nee 108 (90 Base) Base) ded} Base) MCG/ACT MCG/ACT MCG/ACT Xarelto 15 Xarelto 15 No 1{table QD Xarelto 15 MG MG t_with_ MG food} Aspirin Aspirin No 1{table QD Aspirin Adult Low Adult Low t} Adult Low Dose 81 MG Dose 81 MG Dose 81 MG glipiZIDE glipiZIDE No glipiZIDE ER 2.5 mg ER 2.5 mg ER 2.5 mg Calcitriol Calcitriol No 1{capsu Calcitriol 0.5 MCG 0.5 MCG le} 0.5 MCG Clopidogrel Clopidogrel No Clopidogre Bisulfate Bisulfate l 75 MG 75 MG Bisulfate 75 MG Bumetanide Bumetanide No BID Bumetanide 2 MG 2 MG 2 MG Vitamin D3 Vitamin D3 No Vitamin D3 Pantoprazol Pantoprazol No Pantoprazo e Sodium 40 e Sodium 40 le Sodium mg mg 40 mg Pravastatin Pravastatin No Pravastati Sodium 40 Sodium 40 n Sodium mg mg 40 mg ZyrTEC ZyrTEC No 1{table QD ZyrTEC Allergy 10 Allergy 10 t} Allergy 10 MG MG MG Tamsulosin Tamsulosin No Tamsulosin HCl 0.4 mg HCl 0.4 mg HCl 0.4 mg Allopurinol Allopurinol No Allopurino 100 mg 100 mg l 100 mg BD Pen BD Pen No BD Pen Needle Noemi Needle Noemi Needle U/F 32G X 4 U/F 32G X 4 Noemi U/F MM MM 32G X 4 MM Victoza 18 Victoza 18 No Victoza 18 MG/3ML MG/3ML MG/3ML Ventolin Ventolin No Ventolin HFA 108 (90 HFA 108 (90 HFA 108 Base) Base) (90 Base) MCG/ACT MCG/ACT MCG/ACT Levothyroxi Levothyroxi No Levothyrox ne Sodium ne Sodium ine Sodium 137 MCG 137 MCG 137 MCG NovoFine NovoFine No NovoFine Plus 32G X Plus 32G X Plus 32G X 4 MM 4 MM 4 MM Victoza 18 Victoza 18 No Victoza 18 MG/3ML MG/3ML MG/3ML ProAir HFA ProAir HFA No 2{puffs QID ProAir HFA 108 (90 108 (90 _as_nee 108 (90 Base) Base) ded} Base) MCG/ACT MCG/ACT MCG/ACT Xarelto 15 Xarelto 15 No 1{table QD Xarelto 15 MG MG t_with_ MG food} Aspirin Aspirin No 1{table QD Aspirin Adult Low Adult Low t} Adult Low Dose 81 MG Dose 81 MG Dose 81 MG glipiZIDE glipiZIDE No glipiZIDE ER 2.5 mg ER 2.5 mg ER 2.5 mg Pravastatin Pravastatin No 1{table QD Pravastati Sodium 40 Sodium 40 t} n Sodium MG MG 40 MG Flomax 0.4 Flomax 0.4 No 1{capsu QD Flomax 0.4 MG MG le} MG Tamsulosin Tamsulosin No Tamsulosin HCl 0.4 mg HCl 0.4 mg HCl 0.4 mg Levothyroxi Levothyroxi No Levothyrox ne Sodium ne Sodium ine Sodium 137 MCG 137 MCG 137 MCG Victoza 18 Victoza 18 No Victoza 18 MG/3ML MG/3ML MG/3ML Allopurinol Allopurinol No Allopurino 100 mg 100 mg l 100 mg Pantoprazol Pantoprazol No 1{table QD Pantoprazo e Sodium 40 e Sodium 40 t} le Sodium MG MG 40 MG glipiZIDE glipiZIDE No glipiZIDE ER 2.5 mg ER 2.5 mg ER 2.5 mg Pravastatin Pravastatin No Pravastati Sodium 40 Sodium 40 n Sodium mg mg 40 mg Pantoprazol Pantoprazol No Pantoprazo e Sodium 40 e Sodium 40 le Sodium mg mg 40 mg glipiZIDE glipiZIDE No 1{table BID glipiZIDE ER 2.5 MG ER 2.5 MG t_with_ ER 2.[address]} metOLazone metOLazone No 1{table QD metOLazone 5 MG 5 MG t} 5 MG metOLazone metOLazone No 1{table QD metOLazone 5 MG 5 MG t} 5 MG Clopidogrel Clopidogrel No Clopidogre Bisulfate Bisulfate l 75 MG 75 MG Bisulfate 75 MG Aspirin Aspirin No 1{table QD Aspirin Adult Low Adult Low t} Adult Low Dose 81 MG Dose 81 MG Dose 81 MG NovoFine NovoFine No NovoFine Plus 32G X Plus 32G X Plus 32G X 4 MM 4 MM 4 MM Bumetanide Bumetanide No BID Bumetanide 2 MG 2 MG 2 MG ProAir HFA ProAir HFA No 2{puffs QID ProAir HFA 108 (90 108 (90 _as_nee 108 (90 Base) Base) ded} Base) MCG/ACT MCG/ACT MCG/ACT Xarelto 15 Xarelto 15 No 1{table QD Xarelto 15 MG MG t_with_ MG food} Levothyroxi Levothyroxi No QD Levothyrox ne Sodium ne Sodium ine Sodium 137 MCG 137 MCG 137 MCG Victoza 18 Victoza 18 No Victoza 18 MG/3ML MG/3ML MG/3ML Butalbital- Butalbital- No 1{table 6xD Butalbital APAP-Caffei APAP-Caffei t_as_ne -APAP-Caff ne ne eded} eine 50-325-40 50-325-40 50-325-40 MG MG MG Calcitriol Calcitriol No 1{capsu Calcitriol 0.5 MCG 0.5 MCG le} 0.5 MCG Allopurinol Allopurinol No 2{table QD Allopurino 100 MG 100 MG ts} l 100 MG Vitamin D3 Vitamin D3 No Vitamin D3 BD Pen BD Pen No BD Pen Needle Noemi Needle Noemi Needle U/F 32G X 4 U/F 32G X 4 Noemi U/F MM MM 32G X 4 MM Ventolin Ventolin No Ventolin HFA 108 (90 HFA 108 (90 HFA 108 Base) Base) (90 Base) MCG/ACT MCG/ACT MCG/ACT ZyrTEC ZyrTEC No 1{table QD ZyrTEC Allergy 10 Allergy 10 t} Allergy 10 MG MG MG Pravastatin Pravastatin No 1{table QD Pravastati Sodium 40 Sodium 40 t} n Sodium MG MG 40 MG Flomax 0.4 Flomax 0.4 No 1{capsu QD Flomax 0.4 MG MG le} MG Tamsulosin Tamsulosin No Tamsulosin HCl 0.4 mg HCl 0.4 mg HCl 0.4 mg Levothyroxi Levothyroxi No Levothyrox ne Sodium ne Sodium ine Sodium 137 MCG 137 MCG 137 MCG Victoza 18 Victoza 18 No Victoza 18 MG/3ML MG/3ML MG/3ML Allopurinol Allopurinol No Allopurino 100 mg 100 mg l 100 mg Pantoprazol Pantoprazol No 1{table QD Pantoprazo e Sodium 40 e Sodium 40 t} le Sodium MG MG 40 MG glipiZIDE glipiZIDE No glipiZIDE ER 2.5 mg ER 2.5 mg ER 2.5 mg Pravastatin Pravastatin No Pravastati Sodium 40 Sodium 40 n Sodium mg mg 40 mg Pantoprazol Pantoprazol No Pantoprazo e Sodium 40 e Sodium 40 le Sodium mg mg 40 mg glipiZIDE glipiZIDE No 1{table BID glipiZIDE ER 2.5 MG ER 2.5 MG t_with_ ER 2.[address]} metOLazone metOLazone No 1{table QD metOLazone 5 MG 5 MG t} 5 MG metOLazone metOLazone No 1{table QD metOLazone 5 MG 5 MG t} 5 MG Clopidogrel Clopidogrel No Clopidogre Bisulfate Bisulfate l 75 MG 75 MG Bisulfate 75 MG Aspirin Aspirin No 1{table QD Aspirin Adult Low Adult Low t} Adult Low Dose 81 MG Dose 81 MG Dose 81 MG NovoFine NovoFine No NovoFine Plus 32G X Plus 32G X Plus 32G X 4 MM 4 MM 4 MM Bumetanide Bumetanide No BID Bumetanide 2 MG 2 MG 2 MG ProAir HFA ProAir HFA No 2{puffs QID ProAir HFA 108 (90 108 (90 _as_nee 108 (90 Base) Base) ded} Base) MCG/ACT MCG/ACT MCG/ACT Xarelto 15 Xarelto 15 No 1{table QD Xarelto 15 MG MG t_with_ MG food} Levothyroxi Levothyroxi No QD Levothyrox ne Sodium ne Sodium ine Sodium 137 MCG 137 MCG 137 MCG Victoza 18 Victoza 18 No Victoza 18 MG/3ML MG/3ML MG/3ML Butalbital- Butalbital- No 1{table 6xD Butalbital APAP-Caffei APAP-Caffei t_as_ne -APAP-Caff ne ne eded} eine 50-325-40 50-325-40 50-325-40 MG MG MG Calcitriol Calcitriol No 1{capsu Calcitriol 0.5 MCG 0.5 MCG le} 0.5 MCG Allopurinol Allopurinol No 2{table QD Allopurino 100 MG 100 MG ts} l 100 MG Vitamin D3 Vitamin D3 No Vitamin D3 BD Pen BD Pen No BD Pen Needle Noemi Needle Noemi Needle U/F 32G X 4 U/F 32G X 4 Noemi U/F MM MM 32G X 4 MM Ventolin Ventolin No Ventolin HFA 108 (90 HFA 108 (90 HFA 108 Base) Base) (90 Base) MCG/ACT MCG/ACT MCG/ACT ZyrTEC ZyrTEC No 1{table QD ZyrTEC Allergy 10 Allergy 10 t} Allergy 10 MG MG MG Flomax 0.4 Flomax 0.4 2021- No 1{capsu QD Flomax 0.4 MG MG 12-13 le} MG 00:00 :00 Flomax 0.4 Flomax 0.4 2021- No 1{capsu QD Flomax 0.4 MG MG 12-13 le} MG 00:00 :00 Flomax 0.4 Flomax 0.4 2021- No 1{capsu QD Flomax 0.4 MG MG 12-13 le} MG 00:00 :00 Flomax 0.4 Flomax 0.4 2021- No 1{capsu QD Flomax 0.4 MG MG 12-13 le} MG 00:00 :00 Immunizations Ordered Immunization Filled Immunization Date Status Commen ts Source Name Name FLUZONE HIGH DOSE FLUZONE HIGH DOSE 2022-04-06 Completed [facility] OVER 65 OVER 65 08:20:00 - [facility] FLUZONE HIGH DOSE FLUZONE HIGH DOSE 2022-04-06 Completed [facility] OVER 65 OVER 65 08:20:00 - [facility] FLUZONE HIGH DOSE FLUZONE HIGH DOSE 2022-04-06 Completed [facility] OVER 65 OVER 65 08:20:00 - [facility] FLUZONE HIGH DOSE FLUZONE HIGH DOSE 2022-04-06 Completed [facility] OVER 65 OVER 65 08:20:00 - [facility] FLUZONE HIGH DOSE FLUZONE HIGH DOSE 2022-04-06 Completed [facility] OVER 65 OVER 65 08:20:00 - [facility] FluAD FluAD 2020-01-23 Completed [facility] 09:51:00 - [facility] FluAD FluAD 2020-01-23 Completed [facility] 09[facility]51:00 - [facility] FluAD FluAD 2020-01-23 Completed [facility] 09:51:00 - [facility] FluAD FluAD 2020-01-23 Completed [facility] 09[facility]51:00 - [facility] FluAD FluAD 2020-01-23 Completed [facility] 09[facility]51:00 - [facility] FluAD FluAD 2020-01-23 Completed [facility] 09[facility]51:00 - [facility] FluAD FluAD 2020-01-23 Completed [facility] 09:51:00 - [facility] FluAD FluAD 2020-01-23 Completed [facility] 09:51:00 - [facility] FluAD FluAD 2020-01-23 Completed [facility] 09:51:00 - [facility] FluAD FluAD 2020-01-23 Completed [facility] 09:51:00 - [facility] FluAD FluAD 2020-01-23 Completed [facility] 09:51:00 - [facility] FluAD FluAD 2020-01-23 Completed [facility] 09:51:00 - [facility] FluAD FluAD 2020-01-23 Completed [facility] 09:51:00 - [facility] FluAD FluAD 2020-01-23 Completed [facility] 09:51:00 - [facility] FluAD FluAD 2020-01-23 Completed [facility] 09:51:00 - [facility] Vital Signs Vital Name Observation Time Observation Value Comments Source height 2022-04-20 08:10:00 67 [in_i] [facility] weight 2022-04-20 08:10:00 222 [lb_av] [facility] temperature 2022-04-20 08:10:00 96.5 [degF] [facility] bmi 2022-04-20 08:10:00 34.77 kg/m2 [facility] oximetry 2022-04-20 08:10:00 96 % [facility] respiratory rate 2022-04-20 08:10:00 16 /min Comm on [facility] blood pressure 2022-04-20 08:10:00 134 mm[Hg] Common [facility] - systolic [facility] blood pressure 2022-04-20 08:10:00 64 mm[Hg] Common [facility] - diastolic [facility] height 2022-01-14 08:40:00 67 [in_i] Common [facility] weight 2022-01-14 08:40:00 236 [lb_av] [facility] temperature 2022-01-14 08:40:00 97.9 [degF] [facility] bmi 2022-01-14 08:40:00 36.96 kg/m2 [facility] oximetry 2022-01-14 08:40:00 96 % [facility] respiratory rate 2022-01-14 08:40:00 16 /min Comm on [facility] blood pressure 2022-01-14 08:40:00 138 mm[Hg] Common [facility] systolic [facility] blood pressure 2022-01-14 08:40:00 62 mm[Hg] Common [facility] - diastolic [facility] height 2022-01-14 08:40:00 67 [in_i] Common [facility] weight 2022-01-14 08:40:00 236 [lb_av] Common [facility] temperature 2022-01-14 08:40:00 97.9 [degF] [facility] bmi 2022-01-14 08:40:00 36.96 kg/m2 [facility] oximetry 2022-01-14 08:40:00 96 % [facility] respiratory rate 2022-01-14 08:40:00 16 /min Comm on [facility] blood pressure 2022-01-14 08:40:00 138 mm[Hg] Common [facility] - systolic [facility] blood pressure 2022-01-14 08:40:00 62 mm[Hg] Common [facility] - diastolic [facility] height 2021-10-16 08:10:00 67 [in_i] [facility] weight 2021-10-16 08:10:00 231.2 [lb_av] Common [facility] temperature 2021-10-16 08:10:00 97.3 [degF] Common [facility] bmi 2021-10-16 08:10:00 36.21 kg/m2 [facility] oximetry 2021-10-16 08:10:00 96 % [facility] respiratory rate 2021-10-16 08:10:00 17 /min Comm on [facility] blood pressure 2021-10-16 08:10:00 132 mm[Hg] Common [facility] - systolic [facility] blood pressure 2021-10-16 08:10:00 67 mm[Hg] Common [facility] diastolic [facility] Procedures This patient has no known procedures. Plan of Care Planned Activity Planned Date Details Comments Source Future Scheduled 2022-08-26 COVID-19 VACCINE (#1) [facility] Test 05:33:09 [code = COVID-19 VACCINE (#1)] Future Scheduled 2022-08-26 SHINGLES VACCINES (1 [facility] Test 05:33:09 of 2) [code = SHINGLES VACCINES (1 of 2)] Future Scheduled 2022-08-26 65+ [facility]AL [facility] 05:33:09 VACCINE (1 - PCV) [code = 65+ PNEUMOCOCCAL VACCINE (1 - PCV)] Future Scheduled 2022-08-26 [facility]UENZA VACCINE [facility] 05:33:09 [code = INFLUENZA VACCINE] Encounters Start End Encounter Admission Attending Care Care Encounter Source Date/Time Date/Time Type Type Clinicians Facility Department ID 2022-07-19 Outpatient Cardona, [facility] [id number] Common 07:49:00 [facility] [id number] [facility] 2022-04-19 Outpatient Cardona, [facility] [id number] Common 14:41:00 Adolfo [facility] 2022-01-04 Outpatient Cardona, [facility]C ST[facility] [id number] Common 08:31:01 Adolfo [facility] 2021-10-16 Outpatient Cardona, [facility] ST[facility] [id number] Common 07:11:00 Adolfo [facility] 2021-06-17 Outpatient Cardona, [facility] ST[facility] [id number] Common 13:41:11 Adolfo [id number] [facility] 2021-06-17 Outpatient Cardona, ST[facility]MLC ST[facility] [id number] Common 13:21:16 Adolfo [id number] [facility] 2021-06-17 Outpatient Cardona, [facility] ST[facility] [id number] Common 13:21:03 Adolfo [id number] [facility] 2021-06-17 Outpatient Cardona, [facility] [id number] Common 12:47:15 Adolfo [id number] [facility] 2021-06-17 Outpatient Cardona, [facility] [id number] Common 12:45:40 Adolfo [id number] [facility] 2021-06-17 Outpatient Cardona, [facility] [id number] Common 11:31:39 Adolfo [id number] [facility] 2021-06-17 Outpatient Cardona, [facility] ST[facility] [id number] Common 11:04:46 Adolfo [id number] [facility] 2021-06-17 Outpatient Cardona, [facility] ST[facility] [id number] Common 10:59:00 Adolfo [id number] [facility] 2022-04-20 2022-04-20 OFFICE [facility]C ST[facility]C [id number] Co mmon 00:00:00 00:00:00 VISIT [facility] 4 [facility] 2022-04-19 2022-04-19 (TEL) STLMLC STLMLC [id number] Co mmon 00:00:00 00:00:00 [facility] 2022-04-13 2022-04-13 (TEL) STLMLC STL[facility]C [id number] Co mmon 00:00:00 00:00:00 [facility] 2022-04-06 2022-04-06 (INJ) STL[facility]C ST[facility]C [id number] Co mmon 00:00:00 00:00:00 Injection Spir it [facility] 2022-04-05 2022-04-05 (TEL) STLMLC STLMLC [id number] Co mmon 00:00:00 00:00:00 [facility] 2022-02-03 2022-02-03 (TEL) STLMLC STLMLC [id number] Co mmon 00:00:00 00:00:00 [facility] 2022-01-14 2022-01-14 OFFICE STLMLC STL[facility]C [id number] Co mmon 00:00:00 00:00:00 VISIT [facility] ESTAB PT - CHI LEVEL 4 [facility] 2022-01-14 2022-01-14 SUB ANNUAL STLMLC STLMLC [id number] Common 00:00:00 00:00:00 MCR [facility] WELLNESS - [facility] VISIT [facility] 2022-01-01 2022-01-01 (TEL) STLMLC STLMLC [id number] Co mmon 00:00:00 00:00:00 [facility] 2021-12-31 2021-12-31 (TEL) STLMLC STL[facility]C [id number] Co mmon 00:00:00 00:00:00 [facility] 2021-11-06 2021-11-06 (TEL) STLMLC STL[facility]C [id number] Co mmon 00:00:00 00:00:00 [facility] 2021-10-16 2021-10-16 OFFICE STLMLC STL[facility]C [id number] Co mmon 00:00:00 00:00:00 VISIT [facility] ESTAB PT - CHI LEVEL 4 [facility] 2021-08-05 2021-08-05 (TEL) STLMLC STLMLC [id number] Co mmon 00:00:00 00:00:00 [facility] 2021-04-08 2021-04-08 (TEL) STLMLC STL[facility]C [id number] Co mmon 00:00:00 00:00:00 [facility] 2021-02-27 2021-02-27 (TEL) STL[facility]C ST[facility]C [id number] Co mmon 00:00:00 00:00:00 [facility] 2021-01-27 2021-01-27 Outpatient [facility]C [facility] [id number] Common 00:00:00 00:00:00 [facility] 2021-01-27 2021-01-27 Outpatient [facility] [id number] Common 00:00:00 00:00:00 [facility] 2021-01-13 2021-01-13 Outpatient [facility] [id number] Common 00:00:00 00:00:00 [facility] 2021-01-09 2021-01-09 Outpatient [facility] ST[facility] [id number] Common 00:00:00 00:00:00 [facility] 2021-01-09 2021-01-09 Outpatient [facility] [id number] Common 00:00:00 00:00:00 [facility] 2021-01-07 2021-01-07 Outpatient [facility] ST[facility] [id number] Common 00:00:00 00:00:00 [facility] 2020-11-20 2020-11-20 Outpatient [facility]C ST[facility] [id number] Common 00:00:00 00:00:00 [facility] 2020-11-19 2020-11-19 Outpatient [facility] [id number] Common 00:00:00 00:00:00 [facility] 2020-09-19 2020-09-19 Outpatient [facility] ST[facility] [id number] Common 00:00:00 00:00:00 [facility] 2020-09-11 2020-09-11 Outpatient [facility]C ST[facility]C [id number] Common 00:00:00 00:00:00 [facility] 2020-08-29 2020-08-29 Outpatient [facility]C ST[facility] [id number] Common 00:00:00 00:00:00 [facility] 2020-08-20 2020-08-20 Outpatient [facility]C ST[facility]C [id number] Common 00:00:00 00:00:00 [facility] 2020-08-20 2020-08-20 Outpatient [facility]C ST[facility]C [id number] Common 00:00:00 00:00:00 [facility] 2020-08-12 2020-08-12 Outpatient [facility]C ST[facility] [id number] Common 00:00:00 00:00:00 [facility] 2020-05-16 2020-05-16 Outpatient [facility]C ST[facility]C [id number] Common 00:00:00 00:00:00 [facility] 2020-03-11 2020-03-11 Outpatient [facility]C ST[facility]C [id number] Common 00:00:00 00:00:00 [facility] 2020-03-10 2020-03-10 Outpatient [facility]C ST[facility]C [id number] Common 00:00:00 00:00:00 [facility] 2019-12-06 2019-12-06 [facility] [id number] Common 08:45:00 08:45:[address] [facility] 2019-11-07 2019-11-07 [facility] [id number] Common 08:30:00 08:30:[address] [facility] 2019-08-07 2019-08-07 [facility] [id number] Common 13:36:00 13:36:[address] [facility] 2019-05-31 2019-05-31 [facility] [id number] Common 09:45:00 09:45:[address] [facility] 2019-05-24 2019-05-24 [facility] [id number] Common 08:03:00 08:03:[address] [facility] 2019-05-14 2019-05-14 [facility] [id number] Common 09:30:00 09:30:[address] [facility] 2019-05-09 2019-05-09 [facility] [id number] Common 10:54:00 10:54:[address] [facility] 2019-05-09 2019-05-09 [facility] [id number] Common 08:30:00 08:30:[address] [facility] 2019-05-03 2019-05-03 [facility] [id number] Common 09:14:00 09:14:[address] [facility] 2019-04-11 2019-04-11 [facility] [id number] Common 14:31:00 14:31:[address] [facility] 2019-04-04 2019-04-04 [facility] [id number] Common 09:15:00 09:15:[address] [facility] 2019-02-26 2019-02-26 [facility] [id number] Common 09:57:00 09:57:[address] [facility] 2019-02-21 2019-02-21 [facility] [id number] Common 15:15:00 15:15:[address] [facility] 2019-02-20 2019-02-20 [facility] [id number] Common 08:27:00 08:27:[address] [facility] 2018-12-06 2018-12-06 [facility] [id number] Common 15:15:00 15:15:[address] [facility] 2018-11-07 2018-11-07 [facility] [id number] Common 14:45:00 14:45:[address] [facility] 2018-07-11 2018-07-11 [facility] [id number] Common 12:19:00 12:19:[address] [facility] 2018-07-04 2018-07-04 [facility] [id number] Common 14:00:00 14:00:[address] [facility] 2018-05-26 2018-05-26 [facility] [id number] Common 10:45:00 10:45:[address] [facility] 2018-05-25 2018-05-25 [facility] [id number] Common 10:09:00 10:09:[address] [facility] 2018-05-02 2018-05-02 [facility] [id number] Common 14:46:00 14:46:[address] [facility] 2018-05-01 2018-05-01 [facility] [id number] Common 13:39:00 13:39:[address] [facility] 2018-02-28 2018-02-28 [facility] [id number] Common 16:45:00 16:45:[address] [facility] 2018-02-23 2018-02-23 [facility] [id number] Common 09:00:00 09:00:[address] [facility] 2018-02-13 2018-02-13 [facility] [id number] Common 10:00:00 10:00:00 t Specialty/U Sp danya Specialty rology - [facility] 2017-12-26 2017-12-26 Outpatient Brielle Carmona [id number] Common 08:15:00 08:15:[address] [facility] 2017-11-21 2017-11-21 Outpatient Brielle Carmona [id number] Common 15:42:00 15:42:[address] [facility] 2017-11-10 2017-11-10 Outpatient Brielle Carmona [id number] Common 09:30:00 09:30:[address] [facility] Results This patient has no known results.
--- NOTE | 2022-09-06 11:51 | RAD REPORT ---
EXAM DESCRIPTION: CTAbdomen Pelvis Wo Contrast - 09/06/2022 11:37 am CLINICAL HISTORY: diarrhea;Nausea / vomiting COMPARISON: Abdomen Pelvis Wo Contrast dated 11/15/2016; Chest Single View dated 11/06/2021 TECHNIQUE: CT of the abdomen and pelvis was performed without contrast. All CT scans are performed using dose optimization technique as appropriate and may include automated exposure control or mA/KV adjustment according to patient size. FINDINGS: Lower chest: 3 mm right lower lobe pulmonary nodule was not included in the field of view on the prior CT. Statistically, it is benign. Defibrillator lead at the right ventricular apex. Coron robert artery calcifications. Liver: No acute abnormality or suspicious lesions. Biliary: Cholecystectomy Stomach: No significant focal abnormality. Duodenum: No significant focal abnormality. Pancreas: No significant abnormality. Spleen: No significant abnormality. Adrenal: No suspicious lesions. Kidney/ureter: No hydronephrosis. Punctate stone lower pole right kidney. Retroperitoneum: No retroperitoneal adenopathy. Vascular: Atherosclerosis. Bowel: Diffuse colonic wall thickening. No bowel obstruction. Normal appendix.. Peritoneum: No ascites or free air. Bladder: Grossly unremarkable. Reproductive: Prostatomegaly. Bones: No acute fracture. Other: n/a IMPRESSION: Mild pancolitis. No bowel obstruction. Normal appendix. 3 mm right lower lobe pulmonary nodule. If high risk for lung cancer, recommend 12 month follow-up ch est CT. If average/low risk, follow-up is optional.
[2022-09-06] MEDS ORDERED: ONDANSETRON 4 MG/2 ML VIAL ONE (12:19)
[2022-09-06] MEDS ORDERED: NA CHLORIDE 0.9% 1,000 ML ONE ×2 (12:19→23:36)
[2022-09-06] MEDS ORDERED: CIPROFLOXACIN 400mg IV 400 MG/200 ML BAG IV ONE ×2 (12:19→21:45)
[2022-09-06 12:20] LABS: Absolute Lymphocytes (CBC) 0.5 K/uL (0.7-4.9); Hematocrit 35.4 % (39.6-49.0); Lymphocytes % 6.9 % (15.3-44.8); MCV 87.2 fL (80-100); MPV 7.7 fL (7.6-11.3); RBC Red Blood Cell Count 4.07 M/uL (4.33-5.43)
[2022-09-06] MEDS ORDERED: METRONIDAZOLE 500mg IVPB 500 MG/100 ML BAG IV ONE ×2 (12:20→17:08)
--- NOTE | 2022-09-06 12:26 | EDPHYS ---
Physician Documentation [facility] Name: Ketan Feng Age: 82 yrs Sex: Male : 1940 Arrival Date: 09/06/2022 Time: 09:44 Bed 24 Private MD: ED Physician Jhon Orozco HPI: 09/06 12:17 This 82 yrs old Male presents to ER via Ambulatory with complaints of Vomiting/Diarrhea.rn 12:17 The patient presents to the emergency department with nausea, vomiting, diarrhea. rn 12:21 Onset: The symptoms/episode began/occurred 1 week(s) ago. Possible causes: unknown. The rn symptoms are aggravated by food , The symptoms are alleviated by nothing. Associated signs and symptoms: Pertinent positives: diarrhea, nausea, vomiting, Pertinent negatives: fever, GI bleeding. Severity of symptoms: At their worst the symptoms were moderate in the emergency department the symptoms are unchanged. The patient has not experienced similar symptoms in the past. The patient has not recently seen a physician. Told to come to ER for nausea/vomiting/diarrhea. Present for 1 week, not eating or drinking much. + feels weak and tired. No blood in stool. No fever. . Historical: - Allergies: 11:14 Synalgos-DC; nj1 11:14 Augmentin; nj1 11:14 Codeine; nj1 11:14 Iodine; nj1 11:14 Phenobarbital; nj1 11:14 Sulfa (Sulfonamide Antibiotics); nj1 - PMHx: 11:14 Atrial Fib; CHF; COPD; Gout; High Cholesterol; urinary retention; Diabetes mellitus; nj1 Kidney disease; Myocardial infarction; - PSHx: 11:14 Tonsillectomy; Defibrillator; Knee replacement; nj1 - Immunization history:: Adult Immunizations up to date. - Social history:: Smoking status: Patient denies any tobacco usage or history of. - Family history:: not pertinent. - Hospitalizations: : No recent hospitalization is reported. ROS: 12:21 Constitutional: Negative for fever, chills, and weight loss, ENT: Negative for injury, rn pain, and discharge, Cardiovascular: Negative for chest pain, palpitations, and edema, Respiratory: Negative for shortness of breath, cough, wheezing, and pleuritic chest pain, Abdomen/GI: + diarrhea and vomiting Back: Negative for injury and pain, : Negative for injury, bleeding, discharge, and swelling, MS/Extremity: Negative for injury and deformity, Skin: Negative for injury, rash, and discoloration, Neuro: + generalized weakness Exam: 12:21 Constitutional: This is a well developed, well nourished patient who is awake, alert, rn and in no acute distress. ENT: dry MM Cardiovascular: Regular rate and rhythm. No pulse deficits. Respiratory: No increased work of breathing, no retractions or nasal flaring. Abdomen/GI: soft, non-tender Skin: Warm, dry MS/ Extremity: Pulses equal, no cyanosis. Neuro: Awake and alert, GCS 15 Vital Signs: 11:04 BP 115 / 62; Pulse 61; Resp 18; Temp 97.9(O); Pulse Ox 100% ; Weight 99.79 kg; Height 5 nj1 ft. 8 in. ; Pain 0/10; 14:00 BP 117 / 83; Pulse 53; Resp 18; Pulse Ox 99% on R/A; ko1 11:04 Body Mass Index 33.45 (99.79 kg, 172.72 cm) nj1 11:04 Pain Scale: Adult nj1 MDM: 10:12 Patient medically screened. rn 12:21 Differential diagnosis: Nonspecific abd pain, diverticulitis, viral gastroenteritis, rn gastroenteritis, colitis. Data reviewed: vital signs, nurses notes, lab test result(s), radiologic studies, CT scan, and as a result, I will admit patient. Consideration of Admission/Observation Patient was admitted/placed on observation. Escalation of care including admission/observation considered. Offered patient transfer due to hospital capacity, patient declines, states in [facility] and does not want to be transferred to [facility]. . Management of patient was discussed with the following: Hospitalist: . Counseling: I had a detailed discussion with the patient and/or guardian regarding: the historical points, exam findings, and any diagnostic results supporting the discharge/admit diagnosis, lab results, radiology results, the need for further work-up and treatment in the hospital. Response to treatment: the patient's symptoms have mildly improved after treatment, and as a result, I will admit patient. 09/06 11:12 Order name: CBC with Diff; Complete Time: 15:04 rn 09/06 11:12 Order name: CMP; Complete Time: 15:04 rn 09/06 11:12 Order name: Lipase; Complete Time: 15:04 rn 09/06 11:12 Order name: COVID-19/FLU A+B; Complete Time: 15:04 rn 09/06 16:54 Order name: Phosphorus EDMS 09/06 16:54 Order name: Magnesium EDMS 09/06 17:18 Order name: Glucose, Ancillary Testing EDMS 09/06 22:05 Order name: Glucose, Ancillary Testing EDMS 09/06 11:12 Order name: CT Abd/Pelvis - Without Contrast; Complete Time: 11:59 rn 09/06 11:12 Order name: IV Saline Lock; Complete Time: 12:07 rn 09/06 11:12 Order name: Labs collected and sent; Complete Time: 12:07 rn Administered Medications: 12:22 Drug: NS 0.9% IV 1000 ml Route: IV; Rate: 1 bolus; Site: right antecubital; iw 12:22 Drug: Ondansetron IVP 4 mg Route: IVP; Site: right antecubital; iw 14:11 Follow up: Response: Nausea is decreased ko1 12:22 Drug: metroNIDAZOLE IVPB 500 mg Volume: 100 ml; Route: IVPB; Rate: 200 ml/hr; Infused iw Over: 30 mins; Site: right antecubital; 12:52 Follow up: Response: No adverse reaction; IV Status: Completed infusion; IV Intake: ko1 100ml 13:25 Drug: Ciprofloxacin IVPB 400 mg Volume: 200 ml; Route: IVPB; Infused Over: 60 mins; ko1 Site: right antecubital; Disposition Summary: 09/06/22 12:25 Hospitalization Ordered Hospitalization Status: Inpatient Admission rn Provider: Juan Carlos Ludwig rn Condition: Stable rn Problem: an ongoing problem rn Symptoms: have improved rn Bed/Room Type: Standard rn Location: Telemetry/MedSurg (Inpatient)(09/06/22 22:40) cg Room Assignment: 215(09/06/22 22:40) cg Diagnosis - Infectious gastroenteritis and colitis, unspecified rn - Dehydration rn - Muscle weakness (generalized) rn Forms: - Medication Reconciliation Form rn - SBAR form rn Signatures: Dispatcher [employer] Yamileth Merchant RN RN iw Jhon Orozco MD MD rn Garcia, Cindy, RN RN cg Oliver, Kathy, RN RN ko1 Mihir, Krystyna, RN RN nj1 Corrections: (The following items were deleted from the chart) 11:17 11:14 PMHx: Kidney Failure Stage III; nj1 nj1 19: 12:25 Telemetry/MedSurg (Inpatient) rn cg : 12:25 rn cg 22:40 19:21 [facility] ER HOLD cg cg :40 19:21 ERHOLD- cg cg
--- NOTE | 2022-09-06 12:26 | ER ---
Nurse's Notes [facility] Name: Ketan eFng Age: 82 yrs Sex: Male : 1940 Arrival Date: 09/06/2022 Time: 09:44 Bed 24 Private MD: Diagnosis: Infectious gastroenteritis and colitis, unspecified;Dehydration;Muscle weakness (generalized) Presentation: 09/06 11:04 Chief complaint: Patient states: I got sick Lorena, starting throwing up and diarrhea. nj1 I havent had anything to eat during the last 14 hours. Coronavirus screen: Vaccine status: Patient reports being unvaccinated. Ebola Screen: No symptoms or risks identified at this time. Initial Sepsis Screen: Does the patient meet any 2 criteria? No. Patient's initial sepsis screen is negative. Does the patient have a suspected source of infection? No. Patient's initial sepsis screen is negative. Risk Assessment: Do you want to hurt yourself or someone else? Patient reports no desire to harm self or others. Onset of symptoms was August 31, 2022. 11:04 Method Of Arrival: [facility] [place] 11:04 Acuity: GARY 3 nj1 Triage Assessment: 11:18 General: Appears in no apparent distress. comfortable, Behavior is calm, cooperative, nj1 appropriate for age. Pain: Denies pain. GI: Reports diarrhea, nausea. Historical: - Allergies: 11:14 Synalgos-DC; nj1 11:14 Augmentin; nj1 11:14 Codeine; nj1 11:14 Iodine; nj1 11:14 Phenobarbital; nj1 11:14 Sulfa (Sulfonamide Antibiotics); nj1 - PMHx: 11:14 Atrial Fib; CHF; COPD; Gout; High Cholesterol; urinary retention; Diabetes mellitus; nj1 Kidney disease; Myocardial infarction; - PSHx: 11:14 Tonsillectomy; Defibrillator; Knee replacement; nj1 - Immunization history:: Adult Immunizations up to date. - Social history:: Smoking status: Patient denies any tobacco usage or history of. - Family history:: not pertinent. - Hospitalizations: : No recent hospitalization is reported. Screenin:24 [facility] ED Fall Risk Assessment (Adult) History of falling in the last 3 months, iw including since admission. Abuse screen: Denies threats or abuse. Denies injuries from another. Nutritional screening: Has had N/V for 3 or more days. Tuberculosis screening: No symptoms or risk factors identified. Assessment: 12:23 General: Appears in no apparent distress. Behavior is calm, cooperative. Pain: iw Complains of pain in abdomen. Neuro: Level of Consciousness is awake, alert, obeys commands, Oriented to person, place, time, situation, Moves all extremities. Full function. Cardiovascular: Patient's skin is warm and dry. Respiratory: Respiratory effort is even, unlabored, Respiratory pattern is regular. GI: Abdomen is non-distended, Reports diarrhea, nausea, vomiting. Derm: Skin is intact. Musculoskeletal: Range of motion: intact in all extremities. Vital Signs: 11:04 BP 115 / 62; Pulse 61; Resp 18; Temp 97.9(O); Pulse Ox 100% ; Weight 99.79 kg; Height 5 nj1 ft. 8 in. ; Pain 0/10; 14:00 BP 117 / 83; Pulse 53; Resp 18; Pulse Ox 99% on R/A; ko1 11:04 Body Mass Index 33.45 (99.79 kg, 172.72 cm) nj1 11:04 Pain Scale: Adult nj1 ED Course: 09:46 Patient arrived in ED. rg4 10:12 Jhon Orozco MD is Attending Physician. rn 11:12 Triage completed. nj1 11:13 Arm band placed on right wrist. nj1 11:39 CT Abd/Pelvis - Without Contrast In Process Unspecified. EDMS 12:00 Initial lab(s) drawn, by me, sent to lab. Inserted saline lock: 22 gauge in right iw antecubital area, using aseptic technique. Blood collected. 12:22 Yamileth Pugh, RN is Primary Nurse. iw 12:25 Juan Carlos Ludwig MD is Hospitalizing Provider. rn Administered Medications: 12:22 Drug: NS 0.9% IV 1000 ml Route: IV; Rate: 1 bolus; Site: right antecubital; iw 12:22 Drug: Ondansetron IVP 4 mg Route: IVP; Site: right antecubital; iw 14:11 Follow up: Response: Nausea is decreased ko1 12:22 Drug: metroNIDAZOLE IVPB 500 mg Volume: 100 ml; Route: IVPB; Rate: 200 ml/hr; Infused iw Over: 30 mins; Site: right antecubital; 12:52 Follow up: Response: No adverse reaction; IV Status: Completed infusion; IV Intake: ko1 100ml 13:25 Drug: Ciprofloxacin IVPB 400 mg Volume: 200 ml; Route: IVPB; Infused Over: 60 mins; ko1 Site: right antecubital; Intake: 12:52 IV: 100ml; Total: 100ml. ko1 Outcome: 12:25 Decision to Hospitalize by Provider. rn 23:43 Patient left the ED. as6 Signatures: Dispatcher [employer] EDYamileth Garza RN RN iw Nieto, Roman, MD MD rn Garcia, Rubi rg4 Yoni Chin RN RN as6 Dahiana Andrade RN RN ko1 Krystyna Ash RN RN nj1 Corrections: (The following items were deleted from the chart) 11:13 11:04 BP 115 / 62; Pulse 61bpm; Resp 18bpm; Pulse Ox 100%; nj1 nj1 11:17 11:14 PMHx: Kidney Failure Stage III; nj1 nj1
[2022-09-06 12:37] LABS: Albumin 3.4 g/dL (3.4-5.0); Bilirubin Total 0.3 mg/dL (0.2-1.0); Potassium 3.6 mEq/L (3.5-5.1)
[2022-09-06 13:00] LABS: SARS-COV-2 RT PCR NEGATIVE (NEGATIVE)
[2022-09-06] MEDS ORDERED: ONDANSETRON 4 MG/2 ML VIAL IV PRN (15:53)
--- NOTE | 2022-09-06 15:55 | P.HP ---
Certification for Inpatient Patient admitted to: Inpatient With expected LOS: >2 Midnights Patient will require the following post-hospital care: None Practitioner: I am a practitioner with admitting privileges, knowledge of patient current condition, hospital course, and medical plan of care. Services: Services provided to patient in accordance with Admission requirements found in Title 42 Section 412.3 of the Code of Federal Regulations Patient History Date of Service: 09/06/22 Reason for admission: Diarrhea History of Present Illness: Patient is an 82-year-old male with a past medical history significant for atrial fibrillation, CHF, COPD, gout, anxiety, hypertension, UT, CKD 4 who presents with complaint of diarrhea that has been ongoing for the past several days. Patient reported that he had episode of nausea and vomiting for the past 2 days. Patient reported that he has not been able to keep any p.o. intake down. Patient reported left lower quadrant pain rated as 3/10 in severity and described as aching in quality. Patient reported associated signs or symptoms of headache, lightheadedness, shortness of breath, fatigue and weakness. Patient denies any other signs or symptoms. Symptoms are aggravated or relieved by nothing. Patient decided to present to the hospital due to worsening symptoms. Allergies amoxicillin trihydrate [From Augmentin] Allergy (Verified 05/22/14 19:51) Shortness of breath aspirin [From Synalgos-DC] Allergy (Verified 05/22/14 19:51) Shortness of breath caffeine [From Synalgos-DC] Allergy (Verified 05/22/14 19:51) Shortness of breath cephalexin monohydrate [From Keflex] Allergy (Verified 09/04/14 16:48) Anaphylaxis codeine Allergy (Verified 05/22/14 19:51) Rash colchicine Allergy (Verified 09/04/14 16:48) Anaphylaxis dihydrocodeine [From Synalgos-DC] Allergy (Verified 05/22/14 19:51) Shortness of breath dihydrocodeine bitartrate [From Synalgos-DC] Allergy (Verified 05/22/14 19:51) Shortness of breath hydrocortisone acetate [From Hydrocortone Acetate] Allergy (Verified 09/04/14 16:48) Anaphylaxis ibuprofen Allergy (Verified 09/04/14 16:48) Anaphylaxis iodine Allergy (Verified 05/22/14 19:51) convulsions levofloxacin [From Levaquin] Allergy (Verified 09/04/14 16:48) Anaphylaxis oxycodone Allergy (Verified 09/04/14 16:48) Anaphylaxis phenobarbital Allergy (Verified 05/22/14 19:51) Rash potassium clavulanate [From Augmentin] Allergy (Verified 05/22/14 19:51) Shortness of breath Sulfa (Sulfonamide Antibiotics) Allergy (Verified 05/22/14 19:51) Itching zomepirac Allergy (Verified 05/22/14 19:51) Rash Home Medications: Diltiazem HCl [Diltiazem 24Hr Cd] 180 mg PO DAILY 05/20/14 Levothyroxine [Synthroid] 137 mcg PO [id number] 05/20/14 Pravastatin [Pravachol*] 40 mg PO DAILY 05/20/14 Tamsulosin [Flomax*] 0.4 mg PO DAILY 05/20/14 allopurinoL [Zyloprim] 200 mg PO BID 05/20/14 Cyclobenzaprine [Flexeril*] 10 mg PO TID 09/04/14 Furosemide [Lasix*] 2 tab PO DAILY 09/04/14 Liraglutide [Victoza 2-Aris] 0.6 mg SQ DAILY 04/15/17 Pantoprazole Sodium [Protonix] 40 mg PO DAILY 04/15/17 Potassium Chloride [Klor-Con] 20 meq PO BID 04/15/17 Pravastatin Sodium 40 mg PO DAILY 04/15/17 Rivaroxaban [Xarelto*] 15 mg PO DAILY 04/15/17 glyBURIDE [Glyburide] 10 tab PO BID 04/15/17 - Past Medical/Surgical History Diabetic: Yes -: Hypothyroid -: Hyperlipidemia -: HTN -: COPD -: CHF -: DM -: Lymphedema -: Obesity -: REMOVAL FOREIGN BODY LEFT FOOT -: REMOVAL FOREIGN BODY RIGHT LEG -: TENDONS LEFT LEG REPAIR -: LAP SHARRON, HERNIA REPAIR -: BILATERAL ROTATOR CUFF REPAIR -: TONSILECTOMY ADNOIDECTOMY -: RADIOCARATOIDOMY BOTH EYES, CATARACT LEFT EYE -: HEART CATH X3 - Family History Father -: Hypertension Notes: Mother -: Stroke, Other (see notes) Notes: LIVING; [place] Sister -: Diabetes Notes: - Social History Smoking Status: Former smoker Alcohol use: No CD- Drugs: No Caffeine use: Yes Place of Residence: Home Review of Systems General: Weakness, Malaise, Other (Fatigue) Eyes: Unremarkable ENT: Unremarkable Respiratory: Shortness of Breath Cardiovascular: Light Headedness, Unremarkable Gastrointestinal: Nausea, Vomiting, Abdominal Pain, Diarrhea Genitourinary: Unremarkable Musculoskeletal: Unremarkable Integumentary: Unremarkable Neurological: Other ([place], lightheadedness ) Lymphatics: Unremarkable Physical Examination - Physical Exam General: Alert, In no apparent distress, Oriented x3, Cooperative HEENT: Atraumatic, PERRLA, EOMI, Sclerae nonicteric Neck: Supple, 2+ carotid pulse no bruit, No LAD, Without JVD or thyroid abnormality Respiratory: Clear to auscultation bilaterally, Normal air movement, Diminished Cardiovascular: No edema, Normal S1 S2, Irregular heart rate/rhythm Capillary refill: <2 Seconds Gastrointestinal: Normal bowel sounds, No tenderness Musculoskeletal: No clubbing, No swelling, No contractures, No tenderness Integumentary: No rashes, No significant lesion, No tenderness/swelling Neurological: Normal speech, Normal tone, Normal affect Lymphatics: No axilla or inguinal lymphadenopathy - Studies Laboratory Data (last 24 hrs) 09/06/22 12:00: Sodium 129 L, Potassium 3.6, BUN 73 H, Creatinine 4.11 H, Glucose 151 H, Total Bilirubin 0.3, AST 19, ALT 18, Alkaline Phosphatase 66, Lipase 228 H 09/06/22 12:00: WBC 7.20, Hgb 12.0 L, Hct 35.4 L, Plt Count 250 Assessment and Plan - Plan --KENNETH on CKD 4. Likely secondary to Lasix. Nephrology consulted. Continue IV hydration. We will await further recommendation from it software developer. --Pancolitis. Noted on imaging. Patient placed on antibiotics. Gastroenterology consulted. We will await further recommendations. --BPH. Continue home medication. --Diarrhea. Stool studies pending to rule out any infectious process. Continue IV hydration. --Anemia of chronic disease. H&H stable. We will continue to monitor hemoglobin and transfuse if less than 7.0. --Hyponatremia. Likely secondary to dehydration. Further management per it software developer. -- DM2. BS monitoring with sliding scale insulin. --GERD. Continue Protonix. --Gout. Continue allopurinol. -- Hypothyroidism. Continue Synthroid. --COPD. Stable. Continue home medications --Atrial fibrillation. Continue Xarelto. --Acute on chronic diastolic CHF exacerbation. Daily weight and strict I/O Patient with KENNETH on CKD 4, Further management per it software developer. --DVT prophylaxis with Xarelto. Discharge Plan: Home Plan to discharge in: Greater than 2 days - Advance Directives Does patient have a Living Will: No Does patient have a Durable POA for Healthcare: No - Code Status/Comfort Care Code Status Assessed: Yes Physician Review: Patient Assessed, Agree with Above Assessment and Plan Critical Care: No
[2022-09-06] MEDS: INSULIN -REGULAR HUMAN 50 UNIT/0.5 ML ML SQ SCH ×2 (16:30→21:00)
[2022-09-06 16:54] LABS: Magnesium 2.3 mg/dL (1.6-2.4); Phosphorus 3.6 mg/dL (2.5-4.9)
[2022-09-06] MEDS: METRONIDAZOLE 500mg IVPB 500 MG/100 ML BAG IV SCH (17:00)
--- NOTE | 2022-09-06 20:56 | P.CNS ---
Date of Consult: 09/07/22 Reason for Consult: KENNETH/ CKD Requesting Physician: Juan Carlos Ludwig Chief Complaint: Nausea/ Vomiting/ Diarrhea History of Present Illness: 12:17 This 82 yrs old Male presents to ER via Ambulatory with complaints of V omiting/Diarrhea.rn 12:17 The patient presents to the emergency department with nausea, vomiting, diarrhea. rn 12:21 Onset: The symptoms/episode began/occurred 1 week(s) ago. Possible causes: unknown. The rn symptoms are aggravated by food , The symptoms are alleviated by nothing. Associated signs and symptoms: Pertinent positives: diarrhea, nausea, vomiting, Pertinent negatives: fever, GI bleeding. Severity of symptoms: At their worst the symptoms were moderate in the emergency department the symptoms are unchanged. The patient has not experienced similar symptoms in the past. The patient has not recently seen a physician. Told to come to ER for nausea/vomiting/diarrhea. Present for 1 week, not eating or drinking much. + feels weak and tired. No blood in stool. No fever. . Diagnosis: Infectious gastroenteritis and colitis, unspecified;Dehydration;Muscle weakness (generalized) Presentation: 09/06 11:04 Chief complaint: Patient states: I got sick Lorena, starting throwing up and diarrhea. nj1 I havent had anything to eat during the last 14 hours. Coronavirus screen: Vaccine status: Patient reports being unvaccinated. Ebola Screen: No symptoms or risks identified at this time. Initial Sepsis Screen: Does the patient meet any 2 criteria? No. Patient's initial sepsis screen is negative. Does the patient have a suspected source of infection? No. Patient's initial sepsis screen is negative. Risk Assessment: Do you want to hurt yourself or someone else? Patient reports no desire to harm self or others. Onset of symptoms was August 31, 2022. Allergies amoxicillin trihydrate [From Augmentin] Allergy (Verified 05/22/14 19:51) Shortness of breath aspirin [From Synalgos-DC] Allergy (Verified 05/22/14 19:51) Shortness of breath caffeine [From Synalgos-DC] Allergy (Verified 05/22/14 19:51) Shortness of breath cephalexin monohydrate [From Keflex] Allergy (Verified 09/04/14 16:48) Anaphylaxis codeine Allergy (Verified 05/22/14 19:51) Rash colchicine Allergy (Verified 09/04/14 16:48) Anaphylaxis dihydrocodeine [From Synalgos-DC] Allergy (Verified 05/22/14 19:51) Shortness of breath dihydrocodeine bitartrate [From Synalgos-DC] Allergy (Verified 05/22/14 19:51) Shortness of breath hydrocortisone acetate [From Hydrocortone Acetate] Allergy (Verified 09/04/14 16:48) Anaphylaxis ibuprofen Allergy (Verified 09/04/14 16:48) Anaphylaxis iodine Allergy (Verified 05/22/14 19:51) convulsions levofloxacin [From Levaquin] Allergy (Verified 09/04/14 16:48) Anaphylaxis oxycodone Allergy (Verified 09/04/14 16:48) Anaphylaxis phenobarbital Allergy (Verified 05/22/14 19:51) Rash potassium clavulanate [From Augmentin] Allergy (Verified 05/22/14 19:51) Shortness of breath Sulfa (Sulfonamide Antibiotics) Allergy (Verified 05/22/14 19:51) Itching zomepirac Allergy (Verified 05/22/14 19:51) Rash Home medications list reviewed: Yes Home Medications: Diltiazem HCl [Diltiazem 24Hr Cd] 180 mg PO DAILY 05/20/14 Levothyroxine [Synthroid] 137 mcg PO [id number] 05/20/14 Pravastatin [Pravachol*] 40 mg PO DAILY 05/20/14 Tamsulosin [Flomax*] 0.4 mg PO DAILY 05/20/14 allopurinoL [Zyloprim] 200 mg PO BID 05/20/14 Cyclobenzaprine [Flexeril*] 10 mg PO TID 09/04/14 Furosemide [Lasix*] 2 tab PO DAILY 09/04/14 Liraglutide [Victoza 2-Aris] 0.6 mg SQ DAILY 04/15/17 Pantoprazole Sodium [Protonix] 40 mg PO DAILY 04/15/17 Potassium Chloride [Klor-Con] 20 meq PO BID 04/15/17 Pravastatin Sodium 40 mg PO DAILY 04/15/17 Rivaroxaban [Xarelto*] 15 mg PO DAILY 04/15/17 glyBURIDE [Glyburide] 10 tab PO BID 04/15/17 - Past Medical/Surgical History Diabetic: Yes -: Hypothyroid -: HLD -: HTN -: COPD -: Systolic CHF -: DM II -: CKD IV with Proteinuria (Dr. Antonio) -: BPH with LUTS -: Lymphedema -: REMOVAL FOREIGN BODY LEFT FOOT -: REMOVAL FOREIGN BODY RIGHT LEG -: TENDONS LEFT LEG REPAIR -: LAP SHARRON, HERNIA REPAIR -: BILATERAL ROTATOR CUFF REPAIR -: TONSILECTOMY ADNOIDECTOMY -: RADIOCARATOIDOMY BOTH EYES, CATARACT LEFT EYE -: HEART CATH X3 - Family History Father Medical History: Hypertension Notes: Mother Medical History: Stroke, Other (see notes) Notes: LIVING; [place] Sister Medical History: Diabetes Notes: - Social History Smoking Status: Former smoker Alcohol use: No CD- Drugs: No Caffeine use: Yes Review of Systems 10-point ROS is otherwise unremarkable General: Weakness Gastrointestinal: Diarrhea Physical Examination Temp Pulse Resp BP Pulse Ox 98.8 F 50 18 121/73 98 09/06/22 16:00 09/06/22 16:00 09/06/22 16:00 09/06/22 16:00 09/06/22 16:00 General: In no apparent distress, Oriented x3, Cooperative HEENT: Atraumatic Neck: Supple Respiratory: Clear to auscultation bilaterally Cardiovascular: No edema, Regular rate/rhythm Gastrointestinal: Soft and benign, Non-distended Musculoskeletal: No clubbing, No contractures Integumentary: No rashes, No cyanosis Neurological: Normal speech Laboratory Data (last 24 hrs) 09/06/22 12:00: Phosphorus 3.6, Magnesium 2.3 09/06/22 12:00: Sodium 129 L, Potassium 3.6, BUN 73 H, Creatinine 4.11 H, Glucose 151 H, Total Bilirubin 0.3, AST 19, ALT 18, Alkaline Phosphatase 66, Lipase 228 H 09/06/22 12:00: WBC 7.20, Hgb 12.0 L, Hct 35.4 L, Plt Count 250 Imagings Data: EXAM DESCRIPTION: CTAbdomen Pelvis Wo Contrast - 09/06/2022 11:37 am CLINICAL HISTORY: diarrhea;Nausea / vomiting COMPARISON: Abdomen Pelvis Wo Contrast dated 11/15/2016; Chest Single View dated 11/06/2021 TECHNIQUE: CT of the abdomen and pelvis was performed without contrast. All CT scans are performed using dose optimization technique as appropriate and may include automated exposure control or mA/KV adjustment according to patient size. FINDINGS: Lower chest: 3 mm right lower lobe pulmonary nodule was not included in the field of view on the prior CT. Statistically, it is benign. Defibrillator lead at the right ventricular apex. Coronary artery calcifications. Liver: No acute abnormality or suspicious lesions. Biliary: Cholecystectomy Stomach: No significant focal abnormality. Duodenum: No significant focal abnormality. Pancreas: No significant abnormality. Spleen: No significant abnormality. Adrenal: No suspicious lesions. Kidney/ureter: No hydronephrosis. Punctate stone lower pole right kidney. Retroperitoneum: No retroperitoneal adenopathy. Vascular: Atherosclerosis. Bowel: Diffuse colonic wall thickening. No bowel obstruction. Normal appendix.. Peritoneum: No ascites or free air. Bladder: Grossly unremarkable. Reproductive: Prostatomegaly. Bones: No acute fracture. Other: n/a IMPRESSION: Mild pancolitis. No bowel obstruction. Normal appendix. 3 mm right lower lobe pulmonary nodule. If high risk for lung cancer, recommend 12 month follow-up chest CT. If average/low risk, follow-up is optional. EXAM DESCRIPTION: US - Renal Ultrasound-Complete - 04/15/2017 1:13 pm CLINICAL HISTORY: Acute renal failure COMPARISON: CT study October 2016 FINDINGS: The right kidney measures 12.1 x 6.2 x 5.8 cm. The left kidney measures 11.1 x 5.4 x 4.5 cm. Left kidney measures smaller than the right. This asymmetry is observable on the October examination. Cortical thickness is normal. There is increased cortical echogenicity which can indicate underlying medical renal disease. No hydronephrosis or suspicious renal mass. IMPRESSION: No hydronephrosis or suspicious renal mass. Medical renal disease is evident seen as increased renal parenchymal echogenicity. LEFT VENTRICULAR WALL MOTION: GLOBAL HYPOKINESIS LVEF 20-25% DOPPLER/COLOR FLOW: MILD AORTIC, MITRAL AND TRICUSPID REGURGITATION, ESTIMATED RIGHT VENTRICULAR SYSTOLIC PRESSURE 37 mmHg. MILD PULMONARY HYPERTENSION. COMMENTS: DEPRESSED LEFT VENTRICULAR EJECTION FRACTION, DILATED LEFT ATRIUM, MILD AORTIC, MITRAL AND TRICUSPID REGURGITATION, MILD PULMONARY HYPERTENSION. Conclusions/Impression: Stage III KENNETH likely due to hypovolemia CKD IV with proteinuria -No NSAIDs -Gentle IVF with NS Hyponatremia -Gentle IVF with NS HTN with CKD/ CHF -Monitor BP Systolic CHF, chronic -Daily weight DM II with CKD -RISS Anemia in chronic illness Iron Deficiency -Monitor H&H CKD MBD Hypercalcemia -Gentle IVF BPH with LUTS -Restart tamsulosin Atherosclerosis -Consider statin Case reviewed with Dr. Ludwig Thank you kindly for the consultation
[2022-09-06] MEDS: CIPROFLOXACIN 400mg IV 400 MG/200 ML BAG IV SCH (21:00)
[2022-09-06] MEDS: NA CHLORIDE 0.9% 1,000 ML IV SCH (22:00)
[2022-09-07] MEDS: METRONIDAZOLE 500mg IVPB 500 MG/100 ML BAG IV SCH ×3 (01:16→16:22)
[2022-09-07 03:56] LABS: Absolute Lymphocytes (CBC) 0.6 K/uL (0.7-4.9); Hematocrit 30.5 % (39.6-49.0); Lymphocytes % 9.4 % (15.3-44.8); MCV 87.1 fL (80-100); MPV 7.4 fL (7.6-11.3)
[2022-09-07 04:19] LABS: Potassium 3.1 mEq/L (3.5-5.1); Uric Acid 7.9 mg/dL (3.5-7.2)
[2022-09-07] MEDS: INSULIN -REGULAR HUMAN 50 UNIT/0.5 ML ML SQ SCH ×4 (07:30→21:00)
[2022-09-07 08:14] LABS: Specific Gravity 1.013 (1.005-1.030); Urine Bacteria None Seen /HPF (<20); Urine Bilirubin NEGATIVE (Negative); Urine Blood Trace (Negative); Urine Clarity Clear (Clear); Urine Color Light-Yellow (Yellow); Urine Glucose NEGATIVE (Negative); Urine Mucus Slight /HPF (None Seen); Urine Protein 1+ (Negative); Urine RBC <5 /HPF (None Seen); Urine Urobilinogen Normal (Normal)
[2022-09-07] MEDS: CIPROFLOXACIN 400mg IV 400 MG/200 ML BAG IV SCH (08:18)
[2022-09-07] MEDS: TAMSULOSIN 0.4 MG SR CAP PO SCH (08:19)
[2022-09-07] MEDS ORDERED: POTASSIUM CL SA 10 MEQ TAB PO ONE (09:00)
[2022-09-07] MEDS ORDERED: DIPHENHYDRAMINE 25 MG TAB/CAP PO ONE (09:47)
[2022-09-07] MEDS ORDERED: Meropenem 1,000 MG in NA CHLORIDE 0.9% 100 ML IV SCH (10:30)
[2022-09-07] MEDS: Meropenem 500 MG in NA CHLORIDE 0.9% 100 ML IV SCH ×2 (12:11→23:00)
[2022-09-07 15:37] VITALS: BMI 31.8
[2022-09-07] MEDS: NA CHLORIDE 0.9% 1,000 ML IV SCH (18:00)
--- NOTE | 2022-09-07 19:48 | P.PN ---
Subjective Date of Service: 09/07/22 Chief Complaint: Diarrhea No acute events overnight. His abdominal pain is slightly improved compared to yesterday. His diarrhea has also improved. He reports having one loose, non- bloody bowel movement this morning. He had some burning/erythema at the IV site with ciprofloxacin infusion, so this was added to his allergies. He was given diphenhydramine, with complete resolution of his pain/erythema. Spoke with Dr. Valdez, who recommended 14 days of antibiotics. Spoke with Dr. Chew, who recommended 14 days of meropenem + metronidazole due to no PO options. Discussed with him and his , who requested PICC line with Home Health. Review of Systems 10-point ROS is otherwise unremarkable Gastrointestinal: Abdominal Pain, Diarrhea Physical Examination - Vital Signs Temperature: 97.2 F Blood Pressure: 116/63 Pulse: 56 Respirations: 16 Pulse Ox (%): 98 - Physical Exam General: Alert, In no apparent distress, Oriented x3 HEENT: Atraumatic, Mucous membr. moist/pink, Sclerae nonicteric Neck: JVD not distended Respiratory: Clear to auscultation bilaterally, Normal air movement Cardiovascular: No edema, Regular rate/rhythm, Normal S1 S2, No gallops, No rubs, No murmurs Gastrointestinal: Normal bowel sounds, Soft and benign, Non-distended, No rebound, No guarding, Tenderness (minimal, generalized) Musculoskeletal: No clubbing Integumentary: No rashes Neurological: Normal speech, Normal affect Assessment And Plan - Plan # Mild Pancolitis - Based on history, suspect infectious colitis - Does not meet sepsis criteria - CT abdomen/pelvis = "mild pancolitis. No bowel obstruction. Normal appendix." - Consulted Gastroenterology and spoke with Dr. Valdez - He recommended 14 days of antibiotics, and advance diet as tolerated - He will follow-up with him for an outpatient colonoscopy - He was started on ciprofloxacin + metronidazole for intra-abdominal infection coverage - Developed erythema/burning with ciprofloxacin - this was discontinued and added to allergy list - Responded well to diphenhydramine - Consulted Infectious Diseases due to multiple PO antibiotics allergies and spoke with Dr. Chew - Recommended 14 days of meropenem + metronidazole - Will require PICC line # KDIGO Stage I Acute Kidney Injury on Chronic Kidney Disease Stage IV # Anemia of Chronic Kidney Disease - Consulted Nephrology and spoke with Dr. Mike - recommendations appreciated - Creatinine = 4.11 -> 3.66 - Urinalysis = 1+ protein - IV fluids per Nephrology - Monitor creatinine and urine output - If worsening, obtain renal ultrasound - Renally dose medications # Chronic Atrial Fibrillation # Type II Diabetes Mellitus # Chronic Obstructive Pulmonary Disease # Hypothyroidism # Benign Prostatic Hyperplasia # Gout # Gastroesophageal Reflux Disease - Reconcile home medications once verified # Right Lower Lobe Pulmonary Nodule - Noted on CT scan - He and his were counseled on this finding and the possibility that it represents an early malignancy - He was advised to schedule a follow-up CT with his PCP Juan Carlos Ludwig M.D.
[2022-09-07] MEDS ORDERED: ENOXAPARIN 30 MG/0.3 ML SQ SCH (20:00)
[2022-09-08] MEDS: METRONIDAZOLE 500mg IVPB 500 MG/100 ML BAG IV SCH ×3 (01:00→16:48)
[2022-09-08] MEDS: Meropenem 500 MG in NA CHLORIDE 0.9% 100 ML IV SCH ×2 (04:58→16:48)
[2022-09-08] MEDS: NA CHLORIDE 0.9% 1,000 ML IV SCH ×2 (04:58→14:00)
[2022-09-08 05:27] LABS: Potassium 3.4 mEq/L (3.5-5.1)
[2022-09-08] MEDS: INSULIN -REGULAR HUMAN 50 UNIT/0.5 ML ML SQ SCH ×4 (07:30→21:00)
[2022-09-08] MEDS: TAMSULOSIN 0.4 MG SR CAP PO SCH (08:06)
--- NOTE | 2022-09-08 08:25 | P.PN ---
Subjective Date of Service: 09/08/22 Chief Complaint: Nausea/ Vomiting/ Diarrhea Subjective: No new changes, Improving Continues to show significant improvement with onset of meropenem use and also Flagyl. Has been evaluated by infectious disease specialist and recommendation is to have 14 days of IV meropenem and also Flagyl for management of colitis. Physical Examination - Vital Signs Temperature: 97.4 F Blood Pressure: 120/66 Pulse: 56 Respirations: 14 Pulse Ox (%): 97 - Physical Exam General: Alert, Oriented x3 HEENT: Atraumatic, Normocephalic Neck: Supple Respiratory: Normal air movement Cardiovascular: Regular rate/rhythm, Normal S1 S2 Gastrointestinal: Soft and benign Musculoskeletal: No swelling Neurological: Normal speech, Normal strength at 5/5 x4 extr Assessment And Plan - Plan - Plan # Mild Pancolitis -On flagyl and merropenem. we will follow clinical course and complete 14 day course. # KDIGO Stage I Acute Kidney Injury on Chronic Kidney Disease Stage IV # Anemia of Chronic Kidney Disease - Consulted Nephrology and spoke with Dr. Mike - recommendations appreciated - Creatinine = 4.11 -> 3.66->3.45 - Urinalysis = 1+ protein - IV fluids per Nephrology - Monitor creatinine and urine output - If worsening, obtain renal ultrasound - Renally dose medications # Chronic Atrial Fibrillation # Type II Diabetes Mellitus # Chronic Obstructive Pulmonary Disease # Hypothyroidism # Benign Prostatic Hyperplasia # Gout # Gastroesophageal Reflux Disease - Reconcile home medications once verified # Right Lower Lobe Pulmonary Nodule - Noted on CT scan - He and his were counseled on this finding and the possibility that it represents an early malignancy - He was advised to schedule a follow-up CT with his PCP. Disposition: we will follow up plans for PICC placement and home antibiotic administration. Physician Review: Patient Assessed, Agree with Above Assessment and Plan
[2022-09-08] MEDS ORDERED: POTASSIUM 25 MEQ EFFERV TAB PO ONE (09:00)
--- NOTE | 2022-09-08 09:34 | P.CNS ---
Date of Consult: 09/08/22 Reason for Consult: Pancolitis Chief Complaint: Nausea/ Vomiting/ Diarrhea History of Present Illness: Patient is an 82 yo male with a past medical history significant for atrial fibrillation, COPD, CHF, HTN, gout, hypothyroidism, CKD4 and previous MO who presented to the ED 09/06 with complaints of diarrhea for several days as well as nausea/vomiting for 2 days prior to admission. Patient reported not being able to keep any PO intake down and experiencing LLQ abdominal pain. CT abdomen 09/06 revealed mild pancolitis; GI was consulted and started on IV ciprofloxacin and metronidazole. During infusion of ciprofloxacin, patient had erythema/burning at the IV site, cipro was subsequently discontinued. Patient is now on IV Merrem and IV Metronidazole. Allergies ciprofloxacin Allergy (Severe, Verified 09/08/22 17:14) Rash amoxicillin trihydrate [From Augmentin] Allergy (Verified 05/22/14 19:51) Shortness of breath aspirin [From Synalgos-DC] Allergy (Verified 05/22/14 19:51) Shortness of breath caffeine [From Synalgos-DC] Allergy (Verified 05/22/14 19:51) Shortness of breath cephalexin monohydrate [From Keflex] Allergy (Verified 09/04/14 16:48) Anaphylaxis codeine Allergy (Verified 05/22/14 19:51) Rash colchicine Allergy (Verified 09/04/14 16:48) Anaphylaxis dihydrocodeine [From Synalgos-DC] Allergy (Verified 05/22/14 19:51) Shortness of breath dihydrocodeine bitartrate [From Synalgos-DC] Allergy (Verified 05/22/14 19:51) Shortness of breath hydrocortisone acetate [From Hydrocortone Acetate] Allergy (Verified 09/04/14 16:48) Anaphylaxis ibuprofen Allergy (Verified 09/04/14 16:48) Anaphylaxis iodine Allergy (Verified 05/22/14 19:51) convulsions levofloxacin [From Levaquin] Allergy (Verified 09/04/14 16:48) Anaphylaxis oxycodone Allergy (Verified 09/04/14 16:48) Anaphylaxis phenobarbital Allergy (Verified 05/22/14 19:51) Rash potassium clavulanate [From Augmentin] Allergy (Verified 05/22/14 19:51) Shortness of breath Sulfa (Sulfonamide Antibiotics) Allergy (Verified 05/22/14 19:51) Itching zomepirac Allergy (Verified 05/22/14 19:51) Rash Home medications list reviewed: Yes Home Medications: Diltiazem HCl [Diltiazem 24Hr Cd] 180 mg PO DAILY 05/20/14 Levothyroxine [Synthroid] 137 mcg PO [id number] 05/20/14 Pravastatin [Pravachol*] 40 mg PO DAILY 05/20/14 Tamsulosin [Flomax*] 0.4 mg PO DAILY 05/20/14 allopurinoL [Zyloprim] 200 mg PO BID 05/20/14 Cyclobenzaprine [Flexeril*] 10 mg PO TID 09/04/14 Furosemide [Lasix*] 2 tab PO DAILY 09/04/14 Liraglutide [Victoza 2-Aris] 0.6 mg SQ DAILY 04/15/17 Pantoprazole Sodium [Protonix] 40 mg PO DAILY 04/15/17 Potassium Chloride [Klor-Con] 20 meq PO BID 04/15/17 Pravastatin Sodium 40 mg PO DAILY 04/15/17 Rivaroxaban [Xarelto*] 15 mg PO DAILY 04/15/17 glyBURIDE [Glyburide] 10 tab PO BID 04/15/17 - Past Medical/Surgical History Diabetic: Yes -: Hypothyroid -: HLD -: HTN -: COPD -: Systolic CHF -: DM II -: CKD IV with Proteinuria (Dr. Antonio) -: BPH with LUTS -: Lymphedema -: REMOVAL FOREIGN BODY LEFT FOOT -: REMOVAL FOREIGN BODY RIGHT LEG -: TENDONS LEFT LEG REPAIR -: LAP SHARRON, HERNIA REPAIR -: BILATERAL ROTATOR CUFF REPAIR -: TONSILECTOMY ADNOIDECTOMY -: RADIOCARATOIDOMY BOTH EYES, CATARACT LEFT EYE -: HEART CATH X3 - Family History Father Medical History: Hypertension Notes: Mother Medical History: Stroke, Other (see notes) Notes: LIVING; [place] Sister Medical History: Diabetes Notes: - Social History Smoking Status: Former smoker Alcohol use: No CD- Drugs: No Caffeine use: Yes Place of Residence: Home Review of Systems 10-point ROS is otherwise unremarkable Gastrointestinal: Abdominal Pain (mild) Physical Examination Temp Pulse Resp BP Pulse Ox 97.4 F 56 14 120/66 97 09/08/22 08:25 09/08/22 08:25 09/08/22 08:25 09/08/22 08:25 09/08/22 08:25 General: Alert, In no apparent distress, Oriented x3 HEENT: Atraumatic Neck: Supple, JVD not distended Respiratory: Clear to auscultation bilaterally, Normal air movement Cardiovascular: No edema, Normal pulses Gastrointestinal: Normal bowel sounds, No tenderness, No masses, No rebound, No guarding, Distended (mild) Musculoskeletal: No clubbing, No swelling Integumentary: No rashes, No breakdown Neurological: Normal speech, Normal tone, Normal affect Laboratory Data - Reviewed Microbiology Data - Reviewed Imagings Data: - CT abdomen 09/06: "Mild pancolitis. No bowel obstruction. Normal appendix. 3 mm right lower lobe pulmonary nodule." Conclusions/Impression: Problem List - Atrial fibrillation - COPD - Hypertension - CHF - Gout - Hyperlipidemia - Hx of MO - KENNETH on CKD 4 * Allergies: Ciprofloxacin, amoxicillin, cephalexin, levaquin, sulfonamide antibiotics* Pancolitis - Medical management/antibiotic therapy - IV Merrem (started 09/06) - IV Metronidazole (started 09/07) - No leukocytosis, afebrile - Denies any nausea, vomiting or abdominal pain at this time - GI on case KENNETH on CKD - Renally dose medications - Nephrology on case Recommendations - Continue IV Merrem (09/06) and IV Metronidazole (09/07) for 14 days - Continue supportive care as needed ID will follow up and monitor patient closely Case discussed with Conner Gunn
--- NOTE | 2022-09-08 13:28 | RAD REPORT ---
EXAM DESCRIPTION: XR Chest, 1 View CLINICAL HISTORY: The patient is 82 years old and is Male; PICC line Placement [facility] MAIN TECHNIQUE: Frontal view of the chest. COMPARISON: No relevant prior studies available. FINDINGS: LUNGS: No focal consolidation. PLEURAL SPACE: Unremarkable. No pleural effusion. No pneumothorax. HEART: See below. MEDIASTINUM: Enlargement of the cardiomediastinal silhouette, though likely exaggerated secondary t o portable technique, lordotic positioning, and patient body habitus. BONES/JOINTS: Left humeral head rotator cuff fixation screw noted. No acute osseous abnormality. Presumed remote postsurgical or traumatic changes of the right AC joint with moderate left AC joint degenerative changes. Chronic left rotator cuff tear. VASCULATURE: Calcified atherosclerosis of the thoracic aorta. TUBES, LINES AND DEVICES: Cardiac stimulator device demonstrated over the left chest with lead term inating over the right ventricle. Right upper extremity PICC tip terminates in the distal SVC. UPPER ABDOMEN: Right hemidiaphragm elevation. IMPRESSION: 1. Right upper extremity PICC tip terminates in the distal SVC. 2. Cardiomegaly with no acute findings in the chest. Electronically signed by: Partha Vega MD 09/08/2022 4:06 AM CDT Due to temporary technical issues with the PACS/Fluency reporting system, reports are being signed by the in house radiologist without review as a courtesy to ensure prompt reporting. The interpreting r adiologist is fully responsible for the content of the report.
--- NOTE | 2022-09-08 23:29 | P.PN ---
Date of Service: 09/08/22 Vital Signs Temp Pulse Resp BP Pulse Ox 97.9 F 52 20 123/62 99 09/08/22 20:00 09/08/22 20:00 09/08/22 20:00 09/08/22 20:00 09/08/22 20:00 Medications Acetaminophen (Acetaminophen 325 Mg Tablet) 650 mg PO Q6H PRN PRN Reason: TEMP > 100.4' F Metronidazole/Sodium Chloride (Flagyl 500mg/100 Ml Iv Premix) 500 mg in 100 mls @ 200 mls/hr IV Q8HR [facility]; Protocol Last Admin: 09/08/22 16:48 Dose: 100 mls Sodium Chloride (Ns 1000 Ml Ivbag) 1,000 mls @ 50 mls/hr IV .Q20H [facility] Last Admin: 09/08/22 14:00 Dose: Not Given Meropenem 500 mg/ Sodium (Chloride) 100 mls @ 200 mls/hr IV Q12H [facility] Last Admin: 09/08/22 16:48 Dose: 100 mls Insulin Human Regular (Insulin -Regular Human 50 Unit/0.5 Ml Ml) 0 unit SQ ACHS [facility]; Protocol Last Admin: 09/08/22 21:00 Dose: Not Given Ondansetron HCl (Ondansetron 4 Mg/2 Ml Vial) 4 mg IV Q6HP PRN PRN Reason: NAUSEA / VOMITING Sodium Chloride (Flush Normal Saline 10 Ml) 10 ml IV BID [facility] Last Admin: 09/08/22 21:00 Dose: Not Given Tamsulosin HCl (Tamsulosin 0.4 Mg Sr Cap) 0.4 mg PO DAILY [facility] Last Admin: 09/08/22 08:06 Dose: 0.4 mg Assessment/ Plan: Nephrology No dyspnea No chest pain No acute events overnight Vitals, medications, blood work and imaging reviewed in the chart. General: In no apparent distress, Oriented x3, Cooperative HEENT: Atraumatic Neck: Supple Respiratory: Clear to auscultation bilaterally Cardiovascular: No edema, Regular rate/rhythm Gastrointestinal: Soft and benign, Non-distended Musculoskeletal: No clubbing, No contractures Integumentary: No rashes, No cyanosis Neurological: Normal speech Laboratory Data (last 24 hrs) 09/06/22 12:00: Phosphorus 3.6, Magnesium 2.3 09/06/22 12:00: Sodium 129 L, Potassium 3.6, BUN 73 H, Creatinine 4.11 H, Glucose 151 H, Total Bilirubin 0.3, AST 19, ALT 18, Alkaline Phosphatase 66, Lipase 228 H 09/06/22 12:00: WBC 7.20, Hgb 12.0 L, Hct 35.4 L, Plt Count 250 Imagings Data: EXAM DESCRIPTION: CTAbdomen Pelvis Wo Contrast - 09/06/2022 11:37 am CLINICAL HISTORY: diarrhea;Nausea / vomiting COMPARISON: Abdomen Pelvis Wo Contrast dated 11/15/2016; Chest Single View dated 11/06/2021 TECHNIQUE: CT of the abdomen and pelvis was performed without contrast. All CT scans are performed using dose optimization technique as appropriate and may include automated exposure control or mA/KV adjustment according to patient size. FINDINGS: Lower chest: 3 mm right lower lobe pulmonary nodule was not included in the field of view on the prior CT. Statistically, it is benign. Defibrillator lead at the right ventricular apex. Coronary artery calcifications. Liver: No acute abnormality or suspicious lesions. Biliary: Cholecystectomy Stomach: No significant focal abnormality. Duodenum: No significant focal abnormality. Pancreas: No significant abnormality. Spleen: No significant abnormality. Adrenal: No suspicious lesions. Kidney/ureter: No hydronephrosis. Punctate stone lower pole right kidney. Retroperitoneum: No retroperitoneal adenopathy. Vascular: Atherosclerosis. Bowel: Diffuse colonic wall thickening. No bowel obstruction. Normal appendix.. Peritoneum: No ascites or free air. Bladder: Grossly unremarkable. Reproductive: Prostatomegaly. Bones: No acute fracture. Other: n/a IMPRESSION: Mild pancolitis. No bowel obstruction. Normal appendix. 3 mm right lower lobe pulmonary nodule. If high risk for lung cancer, recommend 12 month follow-up chest CT. If average/low risk, follow-up is optional. EXAM DESCRIPTION: US - Renal Ultrasound-Complete - 04/15/2017 1:13 pm CLINICAL HISTORY: Acute renal failure COMPARISON: CT study October 2016 FINDINGS: The right kidney measures 12.1 x 6.2 x 5.8 cm. The left kidney measures 11.1 x 5.4 x 4.5 cm. Left kidney measures smaller than the right. This asymmetry is observable on the October examination. Cortical thickness is normal. There is increased cortical echogenicity which can indicate underlying medical renal disease. No hydronephrosis or suspicious renal mass. IMPRESSION: No hydronephrosis or suspicious renal mass. Medical renal disease is evident seen as increased renal parenchymal echogenicity. LEFT VENTRICULAR WALL MOTION: GLOBAL HYPOKINESIS LVEF 20-25% DOPPLER/COLOR FLOW: MILD AORTIC, MITRAL AND TRICUSPID REGURGITATION, ESTIMATED RIGHT VENTRICULAR SYSTOLIC PRESSURE 37 mmHg. MILD PULMONARY HYPERTENSION. COMMENTS: DEPRESSED LEFT VENTRICULAR EJECTION FRACTION, DILATED LEFT ATRIUM, MILD AORTIC, MITRAL AND TRICUSPID REGURGITATION, MILD PULMONARY HYPERTENSION. Conclusions/Impression: Stage III KENNETH likely due to hypovolemia CKD IV with proteinuria -No NSAIDs -Gentle IVF with NS Hyponatremia -Gentle IVF with NS Hypokalemia -Replete potassium HTN with CKD/ CHF -Monitor BP Systolic CHF, chronic -Daily weight DM II with CKD -RISS Anemia in chronic illness Iron Deficiency -Monitor H&H CKD MBD Hypercalcemia -Gentle IVF BPH with LUTS -Continue tamsulosin Atherosclerosis -Consider statin
[2022-09-09] MEDS: METRONIDAZOLE 500mg IVPB 500 MG/100 ML BAG IV SCH ×3 (00:14→16:03)
[2022-09-09] MEDS: ACETAMINOPHEN 325 MG TABLET PO PRN ×2 (01:21→15:43)
[2022-09-09 04:13] LABS: Potassium 4.1 mEq/L (3.5-5.1)
[2022-09-09] MEDS: Meropenem 500 MG in NA CHLORIDE 0.9% 100 ML IV SCH ×2 (04:22→16:03)
[2022-09-09] MEDS: NA CHLORIDE 0.9% 1,000 ML IV SCH ×2 (04:25→10:00)
[2022-09-09] MEDS: INSULIN -REGULAR HUMAN 50 UNIT/0.5 ML ML SQ SCH ×4 (07:30→21:00)
[2022-09-09] MEDS: TAMSULOSIN 0.4 MG SR CAP PO SCH (08:16)
--- NOTE | 2022-09-09 10:03 | P.PN ---
Date of Service: 09/09/22 Chief Complaint: Nausea/ Vomiting/ Diarrhea Subjective: No changes Pt sitting in bed, not in distress, on room air. No new complaints. Improving. No acute events reported overnight. Review of Systems 10-point ROS is otherwise unremarkable Physical Examination - Vital Signs Temp Pulse Resp BP Pulse Ox 97.7 F 50 18 119/64 98 09/09/22 08:00 09/09/22 08:00 09/09/22 08:00 09/09/22 08:00 09/09/22 08:00 - Physical Exam General: Alert, In no apparent distress, Oriented x3 HEENT: Atraumatic Neck: Supple, JVD not distended Respiratory: Clear to auscultation bilaterally, Normal air movement Cardiovascular: No edema, Normal pulses Gastrointestinal: Normal bowel sounds, No tenderness, No masses, No rebound, No guarding; abdomen soft Musculoskeletal: No clubbing, No swelling Integumentary: No rashes, No breakdown Neurological: Normal speech, Normal tone, Normal affect - Studies Laboratory Data - Reviewed Microbiology Data - Reviewed Imagings Data: - CT abdomen 09/06: "Mild pancolitis. No bowel obstruction. Normal appendix. 3 mm right lower lobe pulmonary nodule." - XR Chest 09/08: "Right upper extremity PICC tip terminates in the distal SVC. Cardiomegaly with no acute findings in the chest" Medications List Reviewed: Yes Assessment And Plan Problem List - Atrial fibrillation - COPD - Hypertension - CHF - Gout - Hyperlipidemia - Hx of PR - KENNETH on CKD 4 * Allergies: Ciprofloxacin, amoxicillin, cephalexin, levaquin, sulfonamide antibiotics* Pancolitis - GI on case - On IV Merrem and IV Metronidazole - No leukocytosis, afebrile KENNETH on CKD - Renally dose medications - Nephrology on case Recommendations - Continue IV Merrem (09/06) and IV Metronidazole (09/07) for 14 days - Continue supportive care as needed - Pending home health for IV antibiotics via PICC line ID will follow up and monitor patient closely Case discussed with Power Gunn.
--- NOTE | 2022-09-09 17:54 | P.PN ---
Subjective Date of Service: 09/09/22 Chief Complaint: Nausea/ Vomiting/ Diarrhea Patient has no new complaint. He has tolerated full liquid diet. He denies abdominal pain or diarrhea. He requests to go home. Physical Examination - Vital Signs Temperature: 98 F Blood Pressure: 114/65 Pulse: 59 Respirations: 14 Pulse Ox (%): 98 Assessment And Plan - Plan Physical Exam General: Alert, Oriented x3 HEENT: Atraumatic, Normocephalic Neck: Supple Respiratory: Normal air movement Cardiovascular: Regular rate/rhythm, Normal S1 S2 Gastrointestinal: Soft and benign Musculoskeletal: No swelling Neurological: Normal speech, Normal strength at 5/5 x4 extr Assessment And Plan Pancolitis -On flagyl and merropenem -On Meropenem given limited choice for antibiotics based on his allergy profile. -Infectious diseases following. -A total of 7 days of antibiotics recommended. -We will arrange for outpatient IV antibiotic for 3 more days. KDIGO Stage I Acute Kidney Injury on Chronic Kidney Disease Stage IV Anemia of Chronic Kidney Disease - Consulted Nephrology Dr. Mike - recommendations appreciated - Creatinine = 4.11 -> 3.66->3.45 -> 3.09. Steadily improving - Urinalysis = 1+ protein - IV fluids per Nephrology - Monitor creatinine and urine output - Renally dose medications Chronic Atrial Fibrillation Type II Diabetes Mellitus Chronic Obstructive Pulmonary Disease Hypothyroidism Benign Prostatic Hyperplasia Gout Gastroesophageal Reflux Disease -Continue home medications. Right Lower Lobe Pulmonary Nodule - Noted on CT scan -Outpatient follow-up recommended. Patient and notified.
--- NOTE | 2022-09-09 21:38 | P.PN ---
Date of Service: 09/09/22 Vital Signs Temp Pulse Resp BP Pulse Ox 98 F 59 14 114/65 98 09/09/22 17:54 09/09/22 17:54 09/09/22 17:54 09/09/22 17:54 09/09/22 17:54 Medications Acetaminophen (Acetaminophen 325 Mg Tablet) 650 mg PO Q6H PRN PRN Reason: TEMP > 100.4' F Last Admin: 09/09/22 15:43 Dose: 650 mg Metronidazole/Sodium Chloride (Flagyl 500mg/100 Ml Iv Premix) 500 mg in 100 mls @ 200 mls/hr IV Q8HR [facility]; Protocol Last Admin: 09/09/22 16:03 Dose: 100 mls Sodium Chloride (Ns 1000 Ml Ivbag) 1,000 mls @ 50 mls/hr IV .Q20H [facility] Last Admin: 09/09/22 10:00 Dose: Not Given Meropenem 500 mg/ Sodium (Chloride) 100 mls @ 200 mls/hr IV Q12H [facility] Last Admin: 09/09/22 16:03 Dose: 100 mls Insulin Human Regular (Insulin -Regular Human 50 Unit/0.5 Ml Ml) 0 unit SQ ACHS [facility]; Protocol Last Admin: 09/09/22 16:30 Dose: Not Given Ondansetron HCl (Ondansetron 4 Mg/2 Ml Vial) 4 mg IV Q6HP PRN PRN Reason: NAUSEA / VOMITING Sodium Chloride (Flush Normal Saline 10 Ml) 10 ml IV BID [facility] Last Admin: 09/09/22 08:17 Dose: 10 ml Tamsulosin HCl (Tamsulosin 0.4 Mg Sr Cap) 0.4 mg PO DAILY [facility] Last Admin: 09/09/22 08:16 Dose: 0.4 mg Assessment/ Plan: Nephrology No dyspnea No chest pain No acute events overnight Vitals, medications, blood work and imaging reviewed in the chart. General: In no apparent distress, Oriented x3, Cooperative HEENT: Atraumatic Neck: Supple Respiratory: Clear to auscultation bilaterally Cardiovascular: No edema, Regular rate/rhythm Gastrointestinal: Soft and benign, Non-distended Musculoskeletal: No clubbing, No contractures Integumentary: No rashes, No cyanosis Neurological: Normal speech Laboratory Data (last 24 hrs) 09/06/22 12:00: Phosphorus 3.6, Magnesium 2.3 09/06/22 12:00: Sodium 129 L, Potassium 3.6, BUN 73 H, Creatinine 4.11 H, Glucose 151 H, Total Bilirubin 0.3, AST 19, ALT 18, Alkaline Phosphatase 66, Lipase 228 H 09/06/22 12:00: WBC 7.20, Hgb 12.0 L, Hct 35.4 L, Plt Count 250 Imagings Data: EXAM DESCRIPTION: CTAbdomen Pelvis Wo Contrast - 09/06/2022 11:37 am CLINICAL HISTORY: diarrhea;Nausea / vomiting COMPARISON: Abdomen Pelvis Wo Contrast dated 11/15/2016; Chest Single View dated 11/06/2021 TECHNIQUE: CT of the abdomen and pelvis was performed without contrast. All CT scans are performed using dose optimization technique as appropriate and may include automated exposure control or mA/KV adjustment according to patient size. FINDINGS: Lower chest: 3 mm right lower lobe pulmonary nodule was not included in the field of view on the prior CT. Statistically, it is benign. Defibrillator lead at the right ventricular apex. Coronary artery calcifications. Liver: No acute abnormality or suspicious lesions. Biliary: Cholecystectomy Stomach: No significant focal abnormality. Duodenum: No significant focal abnormality. Pancreas: No significant abnormality. Spleen: No significant abnormality. Adrenal: No suspicious lesions. Kidney/ureter: No hydronephrosis. Punctate stone lower pole right kidney. Retroperitoneum: No retroperitoneal adenopathy. Vascular: Atherosclerosis. Bowel: Diffuse colonic wall thickening. No bowel obstruction. Normal appendix.. Peritoneum: No ascites or free air. Bladder: Grossly unremarkable. Reproductive: Prostatomegaly. Bones: No acute fracture. Other: n/a IMPRESSION: Mild pancolitis. No bowel obstruction. Normal appendix. 3 mm right lower lobe pulmonary nodule. If high risk for lung cancer, recommend 12 month follow-up chest CT. If average/low risk, follow-up is optional. EXAM DESCRIPTION: US - Renal Ultrasound-Complete - 04/15/2017 1:13 pm CLINICAL HISTORY: Acute renal failure COMPARISON: CT study October 2016 FINDINGS: The right kidney measures 12.1 x 6.2 x 5.8 cm. The left kidney measures 11.1 x 5.4 x 4.5 cm. Left kidney measures smaller than the right. This asymmetry is observable on the October examination. Cortical thickness is normal. There is increased cortical echogenicity which can indicate underlying medical renal disease. No hydronephrosis or suspicious renal mass. IMPRESSION: No hydronephrosis or suspicious renal mass. Medical renal disease is evident seen as increased renal parenchymal echogenicity. LEFT VENTRICULAR WALL MOTION: GLOBAL HYPOKINESIS LVEF 20-25% DOPPLER/COLOR FLOW: MILD AORTIC, MITRAL AND TRICUSPID REGURGITATION, ESTIMATED RIGHT VENTRICULAR SYSTOLIC PRESSURE 37 mmHg. MILD PULMONARY HYPERTENSION. COMMENTS: DEPRESSED LEFT VENTRICULAR EJECTION FRACTION, DILATED LEFT ATRIUM, MILD AORTIC, MITRAL AND TRICUSPID REGURGITATION, MILD PULMONARY HYPERTENSION. Conclusions/Impression: Stage III KENNETH likely due to hypovolemia CKD IV with proteinuria -No NSAIDs -Gentle IVF with NS Hyponatremia -Gentle IVF with NS Hypokalemia -Replete potassium HTN with CKD/ CHF -Monitor BP Systolic CHF, chronic -Daily weight DM II with CKD -RISS Anemia in chronic illness Iron Deficiency -Monitor H&H CKD MBD Hypercalcemia -Gentle IVF BPH with LUTS -Continue tamsulosin Atherosclerosis -Consider statin
[2022-09-10] MEDS: METRONIDAZOLE 500mg IVPB 500 MG/100 ML BAG IV SCH ×2 (01:01→08:09)
[2022-09-10] MEDS: NA CHLORIDE 0.9% 1,000 ML IV SCH ×2 (03:32→05:22)
[2022-09-10 04:47] LABS: Hematocrit 30.1 % (39.6-49.0); Lymphocytes % 14.6 % (15.3-44.8); MCV 88.1 fL (80-100); MPV 7.5 fL (7.6-11.3); RBC Red Blood Cell Count 3.42 M/uL (4.33-5.43)
[2022-09-10 04:55] LABS: Potassium 4.2 mEq/L (3.5-5.1)
[2022-09-10] MEDS: Meropenem 500 MG in NA CHLORIDE 0.9% 100 ML IV SCH (05:22)
[2022-09-10] MEDS: INSULIN -REGULAR HUMAN 50 UNIT/0.5 ML ML SQ SCH (07:30)
[2022-09-10] MEDS: TAMSULOSIN 0.4 MG SR CAP PO SCH (08:09)
[2022-09-10] MEDS ORDERED: ERTAPENEM SODIUM 1 GM VIAL IVPB ONE (08:48)
--- NOTE | 2022-09-10 08:54 | P.DS ---
Admission Date: 09/06/22 Discharge Date: 09/10/22 Disposition: [place] [facility]/HOME HEALTH CARE Discharge Condition: FAIR Reason for Admission: Nausea/ Vomiting/ Diarrhea - Problems (1) Pancolitis Status: Acute (2) Atrial fibrillation Status: Chronic Qualifiers: Atrial fibrillation type: paroxysmal Qualified Code(s): I48.0 - Paroxysmal atrial fibrillation (3) Benign prostate hyperplasia Status: Chronic Qualifiers: Lower urinary tract symptom presence: symptoms present Lower urinary tract symptom detail: unspecified Qualified Code(s): N40.1 - Benign prostatic hyperplasia with lower urinary tract symptoms (4) Diabetes Status: Chronic Qualifiers: Diabetes mellitus type: type 2 Diabetes mellitus long-term insulin use: with long-term use Diabetes mellitus complication status: without complication Qualified Code(s): E11.9 - Type 2 diabetes mellitus without complications; Z79.4 - jail (current) use of insulin; Z79.4 - jail (current) use of insulin; Z79.4 - jail (current) use of insulin; Z79.4 - jail (current) use of insulin Brief History of Present Illness: Patient is an 82-year-old male with a past medical history significant for atrial fibrillation, CHF, COPD, gout, anxiety, hypertension, MS, CKD 4 who presented with complaint of diarrhea that has been ongoing for several days. Patient reported that he had episode of nausea and vomiting for 2 days prior. Patient reported not been able to keep any p.o. intake down. Patient reported left lower quadrant pain rated as 3/10 in severity and described as aching in quality. Patient reported associated signs or symptoms of headache, lightheadedness, shortness of breath, fatigue and weakness. CT abdomen pelvis showed pancolitis. Patient was hospitalized for further management. Hospital Course: Patient admitted to the medical floor and the following medical problems addressed: Pancolitis -Treated with flagyl and merropenem -Meropenem was used given limited choice for antibiotics based on his allergy profile. -Infectious diseases saw and evaluated patient. -A total of 7 days of antibiotics recommended. -Patient discharged with 3 more days of IV Invanz. Also discharged with oral Flagyl. KDIGO Stage I Acute Kidney Injury on Chronic Kidney Disease Stage IV Anemia of Chronic Kidney Disease - Consulted Nephrology Dr. Mike - Creatinine = 4.11 -> 3.66->3.45 -> 3.09 -> 2.88. Renal function improved steadily with IV hydration. - Urinalysis = 1+ protein Chronic Atrial Fibrillation Type II Diabetes Mellitus Chronic Obstructive Pulmonary Disease Hypothyroidism Benign Prostatic Hyperplasia Gout Gastroesophageal Reflux Disease -Continue home medications. Right Lower Lobe Pulmonary Nodule - Noted on CT scan -Outpatient follow-up recommended. Patient and notified. Patient is currently asymptomatic, abdominal pain resolved. Vitals are stable. He is deemed stable for discharge. Vital Signs/Physical Exam: Temp Pulse Resp BP Pulse Ox 97.4 F 51 16 140/63 99 09/10/22 04:00 09/10/22 04:00 09/10/22 04:00 09/10/22 04:00 09/10/22 04:00 General: Alert, In no apparent distress, Oriented x3 HEENT: Mucous membr. moist/pink Neck: JVD not distended Respiratory: Clear to auscultation bilaterally, Normal air movement Cardiovascular: No edema, Regular rate/rhythm, Normal S1 S2 Gastrointestinal: Soft and benign, Non-distended, No tenderness Musculoskeletal: No swelling Integumentary: No cyanosis Neurological: Normal strength at 5/5 x4 extr Laboratory Data at Discharge: WBC 7.00 thou/uL (4.3-10.9) 09/10/22 04:01 Hgb 9.9 g/dL (13.6-17.9) L 09/10/22 04:01 Hct 30.1 % (39.6-49.0) L 09/10/22 04:01 Plt Count 266 thou/uL (152-406) 09/10/22 04:01 Sodium 136 mEq/L (136-145) 09/10/22 04:01 Potassium 4.2 mEq/L (3.5-5.1) 09/10/22 04:01 BUN 39 mg/dL (7-18) H 09/10/22 04:01 Creatinine 2.88 mg/dL (0.70-1.30) H 09/10/22 04:01 Glucose 125 mg/dL (74-106) H 09/10/22 04:01 Uric Acid 7.9 mg/dL (3.5-7.2) H 09/07/22 03:46 Phosphorus 3.6 mg/dL (2.5-4.9) 09/06/22 12:00 Magnesium 2.3 mg/dL (1.6-2.4) 09/06/22 12:00 Total Bilirubin 0.3 mg/dL (0.2-1.0) 09/06/22 12:00 AST 19 U/L (15-37) 09/06/22 12:00 ALT 18 U/L (16-61) 09/06/22 12:00 Alkaline Phosphatase 66 U/L (45-117) 09/06/22 12:00 Lipase 228 U/L (13-75) H 09/06/22 12:00 Home Medications: Diltiazem HCl [Diltiazem 24Hr Cd] 180 mg PO DAILY 05/20/14 Levothyroxine [Synthroid*] 137 mcg PO [id number] 05/20/14 Pravastatin [Pravachol*] 40 mg PO DAILY 05/20/14 Tamsulosin [Flomax*] 0.4 mg PO DAILY 05/20/14 allopurinoL [Zyloprim*] 200 mg PO BID 05/20/14 Cyclobenzaprine [Flexeril*] 10 mg PO TID 09/04/14 Furosemide [Lasix*] 2 tab PO DAILY 09/04/14 Liraglutide [Victoza 2-Aris] 0.6 mg SQ DAILY 04/15/17 Pantoprazole Sodium [Protonix] 40 mg PO DAILY 04/15/17 Apixaban [Eliquis] 2.5 mg PO BID #60 tablet 09/10/22 Ertapenem Sodium [Invanz] 1 gm IV DAILY #3 vial 09/10/22 New Medications: Apixaban [Eliquis] 2.5 mg PO BID #60 tablet Ertapenem Sodium [Invanz] 1 gm IV DAILY #3 vial Diet: AHA Activity: Fall precautions Followup: Adolfo Cardona DO [Primary Care Provider] - 1 Week Manfred Mike DO [ACTIVE - CAN ADMIT] - 1 Week Time spent managing pt's care (in minutes): 33
--- NOTE | 2022-09-10 09:09 | P.PN ---
Date of Service: 09/10/22 Chief Complaint: Nausea/ Vomiting/ Diarrhea Subjective: No changes Pt sitting in bed, not in distress, on room air. No new complaints. Denies any nausea, vomiting, diarrhea or abdominal pain. Improving. No acute events reported overnight. Current plan for d/c home today with home health. IV Invanz x 3 days via midline. Physical Examination - Vital Signs Temp Pulse Resp BP Pulse Ox 97.4 F 51 16 140/63 99 09/10/22 04:00 09/10/22 04:00 09/10/22 04:00 09/10/22 04:00 09/10/22 04:00 - Physical Exam General: Alert, In no apparent distress, Oriented x3 HEENT: Atraumatic Neck: Supple, JVD not distended Respiratory: Clear to auscultation bilaterally, Normal air movement Cardiovascular: No edema, Normal pulses Gastrointestinal: Normal bowel sounds, No tenderness, No masses, No rebound, No guarding; abdomen soft Musculoskeletal: No clubbing, No swelling Integumentary: No rashes, No breakdown Neurological: Normal speech, Normal tone, Normal affect - Studies Laboratory Data - Reviewed Microbiology Data - Reviewed Imagings Data: - CT abdomen 09/06: "Mild pancolitis. No bowel obstruction. Normal appendix. 3 mm right lower lobe pulmonary nodule." - XR Chest 09/08: "Right upper extremity PICC tip terminates in the distal SVC. Cardiomegaly with no acute findings in the chest" Medications List Reviewed: Yes Assessment And Plan Problem List - Atrial fibrillation - COPD - Hypertension - CHF - Gout - Hyperlipidemia - Hx of [place] - KENNETH on CKD 4 * Allergies: Ciprofloxacin, amoxicillin, cephalexin, levaquin, sulfonamide antibiotics* Pancolitis - On Merrem (started 09/08) - On Metronidazole (started 09/06) - No leukocytosis, afebrile - GI on case - Tolerating full liquid diet. Denies any nausea, vomiting, diarrhea or abdominal pain. KENNETH on CKD - Renally dose medications - Nephrology on case Recommendations - Continue antibiotic therapy for total 7 days (currently day 4) - D/c home with home health, midline for IV Invanz x 3 days to complete 7 day antibiotic course ID will follow as needed Case discussed with Conner Gunn
[2022-09-10 09:12] VITALS: O2SAT 100
[2022-09-10] MEDS ORDERED: ERTAPENEM NA 1 GM in NA CHLORIDE 0.9% 100 ML IVPB ONE (09:30)
[2022-09-10 10:03] VITALS: BP 120/72; TEMP 97.2
== END 2022-09-10 10:40 | disposition home health service (06) | DRG 385 ==
LOC: ER 09:44 → ERHOLD 15:09 → 2ND 22:58
PROVIDERS: ADMIT Internal Medicine; ATTEND Internal Medicine
PROC: 02HV33Z Insertion of Infusion Device into Superior Vena Cava, Percutaneous Approach (ICD-10-PCS; principal; 2022-09-08)
DX: K51.00 Ulcerative (chronic) pancolitis without complications (principal); I50.33 Acute on chronic diastolic (congestive) heart failure; A09 Infectious gastroenteritis and colitis, unspecified; N17.9 Acute kidney failure, unspecified; N18.4 Chronic kidney disease, stage 4 (severe); E87.1 Hypo-osmolality and hyponatremia; I13.0 Hypertensive heart and chronic kidney disease with heart failure and stage 1 through stage 4 chronic kidney disease, or unspecified chronic kidney disease; I48.20 Chronic atrial fibrillation, unspecified; E11.22 Type 2 diabetes mellitus with diabetic chronic kidney disease; D63.1 Anemia in chronic kidney disease; E86.0 Dehydration; M10.9 Gout, unspecified; E78.00 Pure hypercholesterolemia, unspecified; E03.9 Hypothyroidism, unspecified; K21.9 Gastro-esophageal reflux disease without esophagitis; E83.52 Hypercalcemia; D50.9 Iron deficiency anemia, unspecified; N40.1 Benign prostatic hyperplasia with lower urinary tract symptoms; J44.9 Chronic obstructive pulmonary disease, unspecified; I25.2 Old myocardial infarction; R91.8 Other nonspecific abnormal finding of lung field; Z88.5 Allergy status to narcotic agent; Z88.1 Allergy status to other antibiotic agents; Z88.8 Allergy status to other drugs, medicaments and biological substances; Z90.49 Acquired absence of other specified parts of digestive tract; Z79.01 Long term (current) use of anticoagulants; Z96.659 Presence of unspecified artificial knee joint; Z95.810 Presence of automatic (implantable) cardiac defibrillator; Z91.018 Allergy to other foods; Z91.048 Other nonmedicinal substance allergy status; Z79.890 Hormone replacement therapy; Z79.899 Other long term (current) drug therapy; Z87.891 Personal history of nicotine dependence; Z20.822 Contact with and (suspected) exposure to COVID-19
CPT/HCPCS: 0240U; 36415; 36569; 71045; 74176; 80048; 80053; 81001; 82947; 83690; 83735; 83880; 83930; 84100; 84132; 84550; 85025; 87045; 87046; 87177; 87209; 89055; 96365; 96375; 99284; J0744; J1335; J1650; J2405; J7030

== ENCOUNTER 2022-10-02 12:18 | Emergency (ER) | payer OTHER ==
--- OUTSIDE RECORDS SUMMARY | 2022-10-02 12:25 | XMS REPORT | Continuity of Care Document ---
:1940 Author Organization [facility] t Address [address] [place] [address] Care Team Providers Name Role Phone Asked, No Pcp Primary Care Physician Unavailable Adolfo Cardona Attending Clinician Unavailable Payers Payer Name Policy Type Policy Number Effective Date Expiration Date S charly [employer] MEDICARE 53 [id number] 2016 [facility] rit 00:00:00 [facility] MEDICARE MB [id number] 2007 [facility] NOVITAS 00:00:00 [facility] Problems Condition Condition Condition Status [...] 00 l Hypertensi Hypertensi Disease Active 2016-05 M ethodi on on 06-21 st 00:00: Hospita [...] 00 l Cardiomega Cardiomega Disease Active 2016-05 M ethodi ly ly 06-15 st 00:00: Hospita 00 l [id number] Memory Problem Common loss or Spirit impairment - CHI [facility] [id number] TIA Problem Common (transient Spirit ischemic - CHI attack) [facility] [id number] Chronic Problem Commo n atrial Spirit fibrillati - CHI on [facility] [id number] Stage 4 Problem Commo n chronic Spirit kidney - CHI disease [facility] [id number] Body mass Problem Com mon index Spirit [BMI] - CHI 36.0-36.9, [facility] [id number] Morbid Problem Commo n 9104 (severe) Spirit obesity - CHI due to [facility] [id number] Depression Problem Com mon , major, Spirit single - CHI episode, [facility] [id number] Right Problem Common lower lobe Spirit pulmonary - CHI nodule [facility] [id number] Pancolitis Problem Co mmon Spirit - CHI [facility] [id number] Uncontroll Problem Co mmon ed type 2 Spirit diabetes - CHI mellitus [facility] hyperglyce [facility] without long-term current use of insulin 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 - CHI failure [facility] Aortic Aortic Problem Common valve valve Spirit regurgitat regurgitat - CHI ion ion [facility] Atopic Atopic Problem Common dermatitis dermatitis Sp danya - CHI [facility] Tricuspid Tricuspid Problem Com mon valve valve Spirit regurgitat regurgitat - CHI ion ion [facility] Gout Gout Problem Common Spirit - CHI [facility] Gastroesop Gastroesop Problem C ommon hageal hageal Spirit reflux reflux - CHI disease disease [facility] [id number] Erectile Problem Comm on dysfunctio Spirit n, - CHI unspecifie [facility] erectile [facility] dysfunctio Medica l n type Center Mixed Hyperlipid Problem Commo n hyperlipid emia, Spirit emia mixed [facility] Atrial +5th digit Problem Commo n fibrillati eff Spirit on 02/20/19*Ch - CHI ronic [facility] Chronic +5th digit Problem Comm on kidney eff Spirit disease 02/21/20*Ch - CHI stage 3 [facility] kidney [facility] disease, Medical stage 3 Center (moderate) Obstructiv Obstructiv Problem C ommon e sleep e sleep Spirit apnea apnea - [facility] [id number] Proteinuri Problem Com mon a, Spirit unspecifie - CHI d [facility] Renal Renal Problem Common disease disease [facility] Automatic History of Problem Co mmon implantabl implantabl Sp danya e cardiac e - [facility] defibrilla cardiovert [facility] situ llator Medical (ICD) Center placement [id number] Type 2 Problem Common diabetes Spirit mellitus - [facility] with other diabetic [facility] kidney Medical complicati Center on [id number] Mild Problem Common intermitte Spirit nt asthma - [facility] with acute [facility] Medical [place] [id number] Allergic Problem Commo n rhinitis, Spirit unspecifie - CHI d [facility] y, Medical unspecifie Center d trigger [id number] Asthma Problem Commo n [id number] with COPD Spirit (chronic - CHI obstructiv [facility] pulmonary Medical disease) [place] [id number] Aphasia Problem Common [facility] Hypothyroi Hypothyroi Problem C ommon dism dism Spirit [facility] Depression Depression Problem C [facility] Spirit [facility] [id number] Secondary Problem Comm on hyperparat Spirit hyroidism - [facility] [id number] Vitamin D Problem Comm on deficiency Spirit disease - [facility] Allergies, Adverse Reactions, Alerts Allergy Allergy Status Severity Reaction(s) Onset Inactive Treating Comm ents Source Name Type Date Date Clinician Ibuprofe Propensi Active Anaphylaxis 2016-05 M ethodi n ty to 06-21 st adverse 00:00: Hospita [...] to drug Aspirin Propensi Active Shortness Of 2016-05 M ethodi ty to Breath 06-21 st [...] s to drug Hydrocor Propensi Active Anaphylaxis 2017 M ethodi tisone ty to 06-21 st Acetate adverse 00:00: Hospita reaction 00 l s to drug 8091 Drug Active Unknown Common allergy [facility] 463 Drug Active Unknown Common allergy [facility] phenobar phenobar Active Unknown Commo n bital bital [facility] 08662 Drug Active Unknown Common allergy [facility] 5513 Drug Active Unknown Common allergy [facility] ibuprofe ibuprofe Active Unknown Commo n n n [facility] 4570 Drug Active Unknown Common allergy [facility] colchici colchici Active Unknown Commo n ne ne Spirit - CHI [facility] acetamin acetamin Active Unknown Commo n ophen / ophen / Spirit hydrocod hydrocod - CHI one one [facility] Codeine Codeine Active Unknown Common Spirit - [facility] Family History Family Member Diagnosis Comments Start Date Stop Date Source Natural father Hypertension [facility] Natural mother Stroke [facility] Natural sister Diabetes [facility] Social History Social Habit Start Date Stop Date Quantity Comments Source History of Tobacco [facility] - Use [facility] Gender identity [facility] of Social 2018-04-05 2018-04-[address] function 00:00:00 00:00:00 Hospital Alcohol intake 2017-04-28 2017-04-28 Current [facility] 00:00:00 00:00:00 non-drinker of Hospital alcohol (finding) Tobacco use and 2017-04-22 2017-04-22 Smokeless [facility] exposure 00:00:00 00:00:00 tobacco non-user [facility] Sex Assigned At [birth year] [facility] 00:00[facility] 00:00:00 Hospital Smoking Status Start Date Stop Date Source Never Smoker [facility] Spirit [facility] Medications Ordered Filled Start Stop Current Ordering Indication Dosage Frequency Signature Comments Components Source Medication Medication Date Date Medication? Clinician (SIG) Name Name Eliquis 2.5 Eliquis 2.5 No Eliquis MG MG 4-28 2.5 MG 00:00: 00 Potassium Potassium 2021-2021- No 1{capsu BID Potassium Chloride 20 Chloride 20 06-19 le} Chloride MEQ MEQ 00:00: 00:00 20 MEQ 00 :00 Potassium Potassium 2021-2021- No 1{capsu BID Potassium Chloride 20 Chloride 20 06-19 le} Chloride MEQ MEQ 00:00: 00:00 20 MEQ 00 :00 Zoloft 50 Zoloft 50 No QD Zoloft 50 MG MG 7-01 MG 00:00: 00 Zoloft 50 Zoloft 50 0 No QD Zoloft 50 MG MG 7-01 MG 00:00: 00 Zoloft 50 Zoloft 50 0 No QD Zoloft 50 MG MG 7-01 MG 00:00: 00 Zoloft 50 Zoloft 50 2022-0 No QD Zoloft 50 MG MG 7-01 MG 00:00: 00 Zoloft 50 Zoloft 50 2-0 No QD Zoloft 50 MG MG 7-01 MG 00:00: 00 Zoloft 50 Zoloft 50 2021-0 No QD Zoloft 50 MG MG 7-01 MG 00:00: 00 Zoloft 50 Zoloft 50 2-0 No QD Zoloft 50 MG MG 7-01 MG 00:00: 00 Zoloft 50 Zoloft 50 2-0 No QD Zoloft 50 MG MG 7-01 MG 00:00: 00 Zoloft 50 Zoloft 50 2021-0 No QD Zoloft 50 MG MG 7-01 MG 00:00: 00 Zoloft 50 Zoloft 50 2021-0 No QD Zoloft 50 MG MG 7-01 MG 00:00: 00 Zoloft 50 Zoloft 50 2-0 No QD Zoloft 50 MG MG 7-01 MG 00:00: 00 valACYclovi valACYclovi No 1{table TID valACYclov r [...] HCl 1 00:00: GM 00 valACYclovi valACYclovi 2020-0 No 1{table TID valACYclov [...] as_need 00 ed} Lidocaine 4 Lidocaine 4 2020- No 1{appli [...] HCl 1 00:00: GM 00 Anoro Anoro 2019-05 No 1{puff} QD Anoro [...] Cardona needed Spirit 00:00: - CHI 00 [facility] cyclobenzap 2016-05 Yes 10mg [id number] Take 10 mg Methodi rine 2-06 [id number] by mouth [address] (FLEXERIL) 14:50: 3D [...] tablet 46 (two) l times a day. cyclobenzap 2016-05 Yes 10mg [id number] Take 10 mg Methodi rine 2-06 [id number] by mouth 3 st (FLEXERIL) 14:50: 3D [...] Coreg Yes Adolfo as Common Cardona directed [facility] Flomax Flomax Yes Adolfo 1 capsule Comm on Cardona [facility] Bumetanide Bumetanide Yes Adolfo take 0.5 Common Cardona tab [facility] ProAir HFA ProAir HFA Yes Adolfo 2 puffs as Common Cardona needed [facility] GlipiZIDE GlipiZIDE Yes Adolfo 1 tablet Common ER ER Cardona with [facility] Pantoprazol Pantoprazol Yes Adolfo 1 tablet Common e Sodium e Sodium Cardona [facility] Symbicort Symbicort Yes Adolfo 2 puffs Common Cardona [facility] Levothyroxi Levothyroxi Yes Adolfo 1 tablet Common ne Sodium ne Sodium Cardona on an Spi rit empty - CHI stomach in [facility] Zyrtec Zyrtec Yes Adolfo 1 tablet Commo n Allergy Allergy Cardona [facility] Victoza Victoza Yes Adolfo not Common Cardona defined [facility] Xarelto Xarelto Yes Adolfo 1 tablet Com mon Cardona with food [facility] NovoFine NovoFine Yes Adolfo as Commo n Plus Plus Cardona directed [facility] Vitamin D3 Vitamin D3 Yes Adoflo not C ommon Cardona defined [facility] Aspirin Aspirin Yes Adolfo 1 tablet Com mon Adult Low Adult Low Cardona Spir it Dose Dose - CHI [facility] Pravastatin Pravastatin Yes Adolfo 1 tablet Common Sodium Sodium Cardona Spirit - [facility] Allopurinol Allopurinol Yes Adolfo 2 tablets Common Cardona Spirit [facility] Calcitriol Calcitriol Yes Adolfo 1 capsule Common Cardona Spirit [facility] Clopidogrel Clopidogrel Yes Adolfo TAKE ONE Common Bisulfate Bisulfate Cardona (1) Spir it TABLET(S) - CHI BY MOUTH St ONCE A [facility] DAY. [facility] Xarelto Xarelto Yes Adolfo TAKE 1 Commo n Cardona TABLET Spirit DAILY WITH - CHI FOOD [facility] PredniSONE PredniSONE Yes Adolfo 1 tablet Common Cardona Spirit [facility] Pantoprazol Pantoprazol Yes Adolfo TAKE 1 Common e Sodium e Sodium Cardona TABLET Spir it DAILY - CHI [facility] Levothyroxi Levothyroxi Yes Adolfo TAKE 1 Common ne Sodium ne Sodium Cardona TABLET Sp danya DAILY IN - [facility] THE MORNING ON [facility] AN EMPTY Medical STOMACH Center Bumetanide Bumetanide [...] 32G X 4 U/F 32G X 4 Nomei U/F MM MM 32G X 4 MM [...] MG MG 40 MG Pravastatin Pravastatin No 1{table QD Pravastati Sodium 40 Sodium 40 t} n Sodium MG MG 40 MG Clopidogrel Clopidogrel No Clopidogre Bisulfate Bisulfate l 75 MG 75 MG Bisulfate 75 MG BD Pen BD Pen No BD Pen Needle Noemi Needle Noemi Needle U/F 32G X 4 U/F 32G X 4 Noemi U/F MM MM 32G X 4 MM glipiZIDE glipiZIDE No 1{table BID glipiZIDE ER 2.5 MG ER 2.5 MG t_with_ ER 2.[address]} Aspirin Aspirin No 1{table QD Aspirin Adult Low Adult Low t} Adult Low Dose 81 MG Dose 81 MG Dose 81 MG Eliquis 2.5 Eliquis 2.5 No BID Eliquis MG MG 2.5 MG ProAir HFA ProAir HFA No 2{puffs QID ProAir HFA 108 (90 108 (90 _as_nee 108 (90 Base) Base) ded} Base) MCG/ACT MCG/ACT MCG/ACT ZyrTEC ZyrTEC No 1{table QD ZyrTEC Allergy 10 Allergy 10 t} Allergy 10 MG MG MG Spironolact Spironolact No 1{table Spironolac one 25 MG one 25 MG t} tone 25 MG Levothyroxi Levothyroxi No QD Levothyrox ne Sodium ne Sodium ine Sodium 137 MCG 137 MCG 137 MCG Victoza 18 Victoza 18 No Victoza 18 MG/3ML MG/3ML MG/3ML Allopurinol Allopurinol No 2{table QD Allopurino 100 MG 100 MG ts} l 100 MG NovoFine NovoFine No NovoFine Plus 32G X Plus 32G X Plus 32G X 4 MM 4 MM 4 MM Bumetanide Bumetanide No BID Bumetanide 2 MG 2 MG 2 MG Calcitriol Calcitriol No 1{capsu Calcitriol 0.5 MCG 0.5 MCG le} 0.5 MCG Vitamin D3 Vitamin D3 No Vitamin D3 Ventolin Ventolin No Ventolin HFA 108 (90 HFA 108 (90 HFA 108 Base) Base) (90 Base) MCG/ACT MCG/ACT MCG/ACT Flomax 0.4 Flomax 0.4 No 1{capsu QD Flomax 0.4 MG MG le} MG Flomax 0.4 Flomax 0.4 2021- No [...] [facility] OVER 65 OVER 65 08:20:00 [facility] FLUZONE HIGH DOSE FLUZONE HIGH DOSE 2022-04-06 Completed [facility] OVER 65 OVER 65 08:20:00 [facility] FLUZONE HIGH DOSE FLUZONE HIGH DOSE 2022-04-06 Completed [facility] OVER 65 OVER 65 08:20:00 - [facility] FLUZONE HIGH DOSE FLUZONE HIGH DOSE 2022-04-06 Completed [facility] OVER 65 OVER 65 08:20:00 - [facility] FLUZONE HIGH DOSE FLUZONE HIGH DOSE 2022-04-06 Completed [facility] OVER 65 OVER 65 08:20:00 - [facility] FLUZONE HIGH DOSE FLUZONE HIGH DOSE 2022-04-06 Completed [facility] OVER 65 OVER 65 08:20:00 - [facility] FluAD FluAD 2020-01-23 Completed [facility] 09:51:00 - [facility] FluAD FluAD 2020-01-23 Completed [facility] 09:51:00 - [facility] FluAD FluAD 2020-01-23 Completed [facility] 09:51:00 - [facility] FluAD FluAD 2020-01-23 Completed [facility] 09:51:00 - [facility] FluAD FluAD 2020-01-23 Completed [facility] 09:51:00 - [facility] FluAD FluAD 2020-01-23 Completed [facility] 09:51:00 - [facility] FluAD FluAD 2020-01-23 Completed [facility] 09:51:00 - [facility] FluAD FluAD 2020-01-23 Completed [facility] 09:51:00 - [facility] FluAD FluAD 2020-01-23 Completed [facility] 09:51:00 - [facility] FluAD FluAD 2020-01-23 Completed [facility] 09:51:00 - [facility] FluAD FluAD 2020-01-23 Completed [facility] 09:51:00 - [facility] FluAD FluAD 2020-01-23 Completed [facility] 09:51:00 - [facility] FluAD FluAD 2020-01-23 Completed [facility] 09:51:00 - [facility] FluAD FluAD 2020-01-23 Completed [facility] 09:51:00 - [facility] FluAD FluAD 2020-01-23 Completed [facility] 09:51:00 - [facility] FluAD FluAD 2020-01-23 Completed [facility] 09:51:00 [facility] Vital Signs Vital Name Observation Time Observation Value Comments Source height 2022-04-20 08:10:00 67 [in_i] [facility] weight 2022-04-20 08:10:00 222 [lb_av] [facility] temperature 2022-04-20 08:10:00 96.5 [degF] [facility] bmi 2022-04-20 08:10:00 34.77 kg/m2 [facility] oximetry 2022-04-20 08:10:00 96 % [facility] respiratory rate 2022-04-20 08:10:00 16 /min Comm on [facility] blood pressure 2022-04-20 08:10:00 134 mm[Hg] [facility] - systolic [facility] blood pressure 2022-04-20 08:10:00 64 mm[Hg] [facility] - diastolic [facility] height 2022-01-14 08:40:00 67 [in_i] [facility] weight 2022-01-14 08:40:00 236 [lb_av] [facility] temperature 2022-01-14 08:40:00 97.9 [degF] [facility] bmi 2022-01-14 08:40:00 36.96 kg/m2 [facility] oximetry 2022-01-14 08:40:00 96 % [facility] respiratory rate 2022-01-14 08:40:00 16 /min Comm on [facility] blood pressure 2022-01-14 08:40:00 138 mm[Hg] [facility] - systolic [facility] blood pressure 2022-01-14 08:40:00 62 mm[Hg] Common [facility] - diastolic [facility] height 2022-01-14 08:40:00 67 [in_i] [facility] weight 2022-01-14 08:40:00 236 [lb_av] Common [facility] temperature 2022-01-14 08:40:00 97.9 [degF] [facility] bmi 2022-01-14 08:40:00 36.96 kg/m2 Common [facility] oximetry 2022-01-14 08:40:00 96 % Common [facility] respiratory rate 2022-01-14 08:40:00 16 /min Comm on [facility] blood pressure 2022-01-14 08:40:00 138 mm[Hg] Common [facility] systolic [facility] blood pressure 2022-01-14 08:40:00 62 mm[Hg] Common [facility] diastolic [facility] height 2021-10-16 08:10:00 67 [in_i] [facility] weight 2021-10-16 08:10:00 231.2 [lb_av] [facility] temperature 2021-10-16 08:10:00 97.3 [degF] [facility] bmi 2021-10-16 08:10:00 36.21 kg/m2 [facility] oximetry 2021-10-16 08:10:00 96 % [facility] respiratory rate 2021-10-16 08:10:00 17 /min Comm on [facility] blood pressure 2021-10-16 08:10:00 132 mm[Hg] Common [facility] systolic [facility] blood pressure 2021-10-16 08:10:00 67 mm[Hg] Common [facility] diastolic [facility] Procedures This patient has no known procedures. Plan of Care Planned Activity Planned Date Details Comments Source Future Scheduled 2022-08-26 COVID-19 VACCINE (#1) [facility] Test 05:33:09 [code = COVID-19 VACCINE (#1)] Future Scheduled 2022-08-26 SHINGLES VACCINES ([facility] 05:33:09 of 2) [code = SHINGLES VACCINES (1 of 2)] Future Scheduled 2022-08-26 65+ [facility] 05:33:09 VACCINE (1 - PCV) [code = 65+ PNEUMOCOCCAL VACCINE (1 - PCV)] Future Scheduled 2022-08-26 INFLUENZA VACCINE [facility] Test 05:33:09 [code = INFLUENZA VACCINE] Future Scheduled 2022-08-26 COVID-19 VACCINE (#1) [facility] Test 05:33:09 [code = COVID-19 VACCINE (#1)] Future Scheduled 2022-08-26 SHINGLES VACCINES (1 Met [facility] Test 05:33:09 of 2) [code = [...] Clinicians Facility Department ID 2022-07-19 [facility] [id number] Common 07:49:00 Adolfo [facility] 2022-04-19 Outpatient Cardona, [facility] [id number] Common 14:41:00 Adolfo [facility] 2022-01-04 Outpatient Cardona, [facility] [id number] Common 08:31:01 Adolfo [id number] [facility] 2021-10-16 Outpatient Cardona, [facility] [id number] Common 07:11:00 Adolfo [facility] 2021-06-17 Outpatient Cardona, [facility] [id number] Common 13:41:11 Adolfo [id number] [facility] 2021-06-17 Outpatient Cardona, [facility] [id number] Common 13:21:16 Adolfo [id number] [facility] 2021-06-17 Outpatient Cardona, [facility]LML[facility] ST[facility] [id number] Common 13:21:03 Adolfo [id number] [facility] 2021-06-17 Outpatient Cardona, STLMLC STLMLC [id number] Common 12:47:15 Adolfo [id number] [facility] 2021-06-17 Outpatient Cardona, STLMLC STL[facility]C [id number] Common 12:45:40 Adolfo [id number] [facility] 2021-06-17 Outpatient Cardona, STLMLC STL[facility]C [id number] Common 11:31:39 Adolfo [id number] [facility] 2021-06-17 Outpatient Cardona, STLMLC STLMLC [id number] Common 11:04:46 Adolfo [id number] [facility] 2021-06-17 Outpatient Cardona, STLMLC STLMLC [id number] Common 10:59:00 Adolfo [id number] [facility] 2022-04-20 2022-04-20 OFFICE STLMLC STLMLC [id number] Co mmon 00:00:00 00:00:00 VISIT [facility] LEVEL 4 [facility] 2022-04-19 2022-04-19 (TEL) STLMLC STLMLC [id number] Co mmon 00:00:00 00:00:00 [facility] 2022-04-13 2022-04-13 (TEL) STLMLC STLMLC [id number] Co mmon 00:00:00 00:00:00 [facility] 2022-04-06 2022-04-06 (INJ) STLMLC STLMLC [id number] Co mmon 00:00:00 00:00:00 Injection Spir [facility] 2022-04-05 2022-04-05 (TEL) STLMLC STLMLC [id number] Co mmon 00:00:00 00:00:00 [facility] 2022-02-03 2022-02-03 (TEL) STLMLC STLMLC [id number] Co mmon 00:00:00 00:00:00 [facility] 2022-01-14 2022-01-14 OFFICE STLMLC STLMLC [id number] Co mmon 00:00:00 00:00:00 VISIT [facility] PT - CHI LEVEL 4 [facility] 2022-01-14 2022-01-14 SUB ANNUAL STLMLC STLMLC [id number] Common 00:00:00 00:00:00 MCR [facility] VISIT [facility] 2022-01-01 2022-01-01 (TEL) STLMLC STLMLC [id number] Co mmon 00:00:00 00:00:00 [facility] 2021-12-31 2021-12-31 (TEL) STLMLC STLMLC [id number] Co mmon 00:00:00 00:00:00 [facility] 2021-11-06 2021-11-06 (TEL) STLMLC STLMLC [id number] Co mmon 00:00:00 00:00:00 [facility] 2021-10-16 2021-10-16 OFFICE STLMLC STLMLC [id number] Co mmon 00:00:00 00:00:00 VISIT [facility] PT - CHI LEVEL 4 [facility] 2021-08-05 2021-08-05 (TEL) STLMLC STLMLC [id number] Co mmon 00:00:00 00:00:00 [facility] 2021-04-08 2021-04-08 (TEL) STLMLC STLMLC [id number] Co mmon 00:00:00 00:00:00 [facility] 2021-03-02 2021-03-02 (TEL) STLMLC STLMLC [id number] Co mmon 00:00:00 00:00:00 [facility] 2021-02-27 2021-02-27 (TEL) STLMLC STLMLC [id number] Co mmon 00:00:00 00:00:00 [facility] 2021-01-27 2021-01-27 Outpatient STLMLC STLMLC [id number] Common 00:00:00 00:00:00 [facility] 2021-01-27 2021-01-27 Outpatient STLMLC STLMLC [id number] Common 00:00:00 00:00:00 [facility] 2021-01-13 2021-01-13 Outpatient STLMLC STLMLC [id number] Common 00:00:00 00:00:00 [facility] 2021-01-09 2021-01-09 Outpatient STLMLC STLMLC [id number] Common 00:00:00 00:00:00 [facility] 2021-01-09 2021-01-09 Outpatient STLMLC STLMLC [id number] Common 00:00:00 00:00:00 [facility] 2021-01-07 2021-01-07 Outpatient STLMLC STLMLC [id number] Common 00:00:00 00:00:00 [facility] 2020-11-20 2020-11-20 Outpatient STLMLC STLMLC [id number] Common 00:00:00 00:00:00 [facility] 2020-11-19 2020-11-19 Outpatient STLMLC STLMLC [id number] Common 00:00:00 00:00:00 [facility] 2020-09-19 2020-09-19 Outpatient STLMLC ST[facility]C [id number] Common 00:00:00 00:00:00 [facility] 2020-09-11 2020-09-11 Outpatient STLMLC STLMLC [id number] Common 00:00:00 00:00:00 [facility] 2020-08-29 2020-08-29 Outpatient STLMLC STLMLC [id number] Common 00:00:00 00:00:00 [facility] [facility] 2020-08-20 2020-08-20 Outpatient [facility]LMLC STL[facility]C [id number] Common 00:00:00 00:00:00 [facility] 2020-08-20 2020-08-20 Outpatient [facility] STL[facility]C [id number] Common 00:00:00 00:00:00 [facility] 2020-08-12 2020-08-12 Outpatient STLMLC STLMLC [id number] Common 00:00:00 00:00:00 [facility] 2020-05-16 2020-05-16 Outpatient STLMLC STLMLC [id number] Common 00:00:00 00:00:00 [facility] 2020-03-11 2020-03-11 Outpatient STLMLC STLMLC [id number] Common 00:00:00 00:00:00 [facility] 2020-03-10 2020-03-10 Outpatient STLMLC STLMLC [id number] Common 00:00:00 00:00:00 [facility] 2019-12-06 2019-12-06 [id number] Common 08:45:00 08:45:[address] [facility] 2019-11-07 2019-11-07 [facility] [id number] Common 08:30:00 08:30:[address] [facility] 2019-08-07 2019-08-07 [facility] [id number] Common 13:36:00 13:36:[address] [facility] 2019-05-31 2019-05-31 [facility] [id number] Common 09:45:00 09:45:[address] [facility] 2019-05-24 2019-05-24 [facility] [id number] Common 08:03:00 08:03:[address] [facility] 2019-05-14 2019-05-14 [facility] [id number] Common 09:30:00 09:30:[address] [facility] 2019-05-09 2019-05-09 [facility] [id number] Common 10:54:00 10:54:[address] [facility] 2019-05-09 2019-05-09 [facility] [id number] Common 08:30:00 08:30:[address] [facility] 2019-05-03 2019-05-03 [facility] [id number] Common 09:14:00 09:14:[address] [facility] 2019-04-11 2019-04-11 [facility] [id number] Common 14:31:00 14:31:[address] [facility] 2019-04-04 2019-04-04 [facility] [id number] Common 09:15:00 09:15:[address] [facility] 2019-02-26 2019-02-26 [facility] [id number] Common 09:57:00 09:57:[address] [facility] 2019-02-21 2019-02-21 [facility] [id number] Common 15:15:00 15:15:[address] [facility] 2019-02-20 2019-02-20 [facility] [id number] Common 08:27:00 08:27:[address] [facility] 2018-12-06 2018-12-06 [facility] [id number] Common 15:15:00 15:15:[address] [facility] 2018-11-07 2018-11-07 [facility] [id number] Common 14:45:00 14:45:[address] [facility] 2018-07-11 2018-07-11 [facility] [id number] Common 12:19:00 12:19:[address] [facility] 2018-07-04 2018-07-04 [facility] [id number] Common 14:00:00 14:00:[address] [facility] 2018-05-26 2018-05-26 [facility] [id number] Common 10:45:00 10:45:[address] [facility] 2018-05-25 2018-05-25 [facility] [id number] Common 10:09:00 10:09:[address] [facility] 2018-05-02 2018-05-02 [facility] [id number] Common 14:46:00 14:46:[address] [facility] 2018-05-01 2018-05-01 [facility] [id number] Common 13:39:00 13:39:[address] [facility] 2018-02-28 2018-02-28 [facility] [id number] Common 16:45:00 16:45:[address] [facility] 2018-02-23 2018-02-23 [facility] [id number] Common 09:00:00 09:00:[address] [facility] 2018-02-13 2018-02-13 [facility] [id number] Common 10:00:00 10:00:00 t Specialty/U Sp [facility] Special[facility]y - [facility] 2017-12-26 2017-12-26 [facility] [id number] Common 08:15:00 08:15:[address] [facility] 2017-11-21 2017-11-21 [facility] [id number] Common 15:42:00 15:42:[address] [facility] 2017-11-10 2017-11-10 [facility] [id number] Common 09:30:00 09:30:[address] [facility] Results This patient has no known results.
[2022-10-02] MEDS ORDERED: TETANUS & DIPHTHERIA TOX,ADULT 0.5 ML VIAL ONE (12:42)
--- NOTE | 2022-10-02 12:48 | RAD REPORT ---
EXAM DESCRIPTION: CT - [id number] - 10/02/2022 12:40 pm CLINICAL HISTORY: Trauma, head and neck injury. PAIN COMPARISON: No comparisons TECHNIQUE: Axial 5 mm thick images of the head were obtained. Axial 2 mm thick images of the cervical spine were obtained with sagittal and coronal reconstruction images generated and reviewed. All CT scans are performed using dose optimization technique as appropriate and may include automated exposure control or mA/KV adjustment according to patient size. FINDINGS: CT HEAD WITHOUT CONTRAST: No acute hemorrhage, hydrocephalus or extra-axial collection is identified.No areas of brain edema or midline shift. The paranasal sinuses and mastoids are clear.The calvarium is intact. CT CERVICAL SPINE WITHOUT CONTRAST: No fracture or subluxation.No prevertebral soft tissues swelling is identified. Multilevel degenerati ve changes are present in the spine. Varying degrees of neural foraminal narrowing. IMPRESSION: No acute intracranial or cervical spine findings.
--- NOTE | 2022-10-02 12:50 | RAD REPORT ---
EXAM DESCRIPTION: CT - CTFB CLINICAL HISTORY: FACIAL PAIN COMPARISON: No comparisons TECHNIQUE: Axial 2 mm thick images of the face were obtained with sagittal and coronal reconstructio n images. All CT scans are performed using dose optimization technique as appropriate and may include automated exposure control or mA/KV adjustment according to patient size. FINDINGS: No displaced bilateral nasal bone fractures.The mandible is intact. Forehead swelling left side. The globes and orbital contents are grossly unremarkable.The paranasal sinuses and mastoids are clear . IMPRESSION: Minimally displaced bilateral nasal bone fractures.
[2022-10-02] MEDS ORDERED: ACETAMINOPHEN 500 MG TAB ONE (13:05)
--- NOTE | 2022-10-02 13:45 | EDPHYS ---
Physician Documentation [facility] Name: Ketan Feng Age: 82 yrs Sex: Male : 1940 Arrival Date: 10/02/2022 Time: 12:18 Bed 2 Private MD: ED Physician Barrett Acosta HPI: 10/02 12:22 This 82 yrs old Male presents to ER via EMS with complaints of Fall Injury. bs3 12:22 82-year-old male history of hypertension, hyperlipidemia, diabetes, CHF, presents after bs3 a fall complaining of head pain nose pain left wrist pain he notes that he tripped and fell over the concrete he denies any presyncopal or syncopal symptoms he denies any prefall headache chest pain shortness of breath or abdominal pain. Historical: - Allergies: 12:24 Augmentin; hb 12:24 Codeine; hb 12:24 Iodine; hb 12:24 Phenobarbital; hb 12:24 Sulfa (Sulfonamide Antibiotics); hb 12:24 Synalgos-DC; hb - PMHx: 12:24 Atrial Fib; diabetes mellitus; kidney disease; High Cholesterol; CHF; Myocardial hb infarction; COPD; Gout; urinary retention; - PSHx: 12:24 defibrillator; knee replacement; Tonsillectomy; hb - Immunization history:: Last tetanus immunization: unknown. - Social history:: Smoking status: Patient denies any tobacco usage or history of. - Immunization history: Last tetanus immunization: unknown. ROS: 12:22 Constitutional: Negative for fever, chills bs3 12:22 All other systems are negative. Exam: 12:22 Constitutional: This is a well developed, well nourished patient who is awake, alert, bs3 and in no acute distress. Head/Face: Hematoma over his forehead he has superficial abrasions to his nose with a deformity of his nose Eyes: Pupils equal round and reactive to light, extra-ocular motions intact. Lids and lashes normal. ENT: mmm, no posterior phyarngeal erythema Neck: Bilateral paraspinal pain in this mid C-spine as well as slight midline pain to palpation Chest/axilla: Normal chest wall appearance and motion. Mild tenderness over the left side no lesions are appreciated. Cardiovascular: Regular rate and rhythm with a normal S1 and S2. symmetric pulses in upper extremities Respiratory: Lungs have equal breath sounds bilaterally, clear to auscultation, no respiratory distress Abdomen/GI: Soft, non-tender, no rebound or guarding MS/ Extremity: Superficial abrasions over the dorsum of his hands bilaterally he does have slight tenderness to his left distal radius Neuro: Awake and alert, GCS 15, oriented to person, place, time, and situation. Cranial nerves II-XII grossly intact. Motor strength 5/5 in all extremities. Sensory grossly intact. Psych: Awake, alert, with orientation to person, place and time. Behavior, mood, and affect are within normal limits. Vital Signs: 12:19 Pulse 68; Resp 18; Temp 97.9; Pulse Ox 97% on R/A; Weight 107.5 kg; Height 5 ft. 8 in. hb ; Pain 10/10; 13:03 BP 119 / 76; Pulse 61; Resp 18; Pulse Ox 100% on R/A; ld1 14:05 BP 122 / 66; Pulse 69; Resp 18; Pulse Ox 100% on R/A; ld1 12:19 Body Mass Index 36.04 (107.50 kg, 172.72 cm) hb 12:19 Pain Scale: Adult hb [place] Coma Score: 12:46 Eye Response: spontaneous(4). Motor Response: obeys commands(6). Verbal Response: ld1 oriented(5). Total: 15. Trauma Score (Adult): 12:46 Eye Response: spontaneous(1); Verbal Response: oriented(1); Motor Response: obeys ld1 commands(2); Systolic BP: > 89 mm Hg(4); Respiratory Rate: 10 to 29 per min(4); [place] Score: 15; Trauma Score: 12 MDM: 12:20 Patient medically screened. bs3 12:22 Data reviewed: vital signs, nurses notes. ED course: Will evaluate for intracranial bs3 hemorrhage will evaluate for facial fracture he likely has a nasal bone fracture will evaluate for C-spine deformity will evaluate for distal radius fracture and rib fracture. ED course: Will update tetanus. 13:43 Independent interpretation of the following test(s) in the Emergency Department X-Ray: bs3 My interpretation is No distal radius fracture and No intercranial hemorrhage. CT Scan: My interpretation is Bilateral nasal bone fracture. ED course: Will discharge home return precautions given discussed with family at bedside patient is already in physical therapy. 05/13 12:22 Order name: Wrist Left (3 View) XRAY; Complete Time: 14:00 bs3 10/02 12:22 Order name: XRAY Chest (1 view); Complete Time: 14:00 bs3 10/02 12:22 Order name: CT Facial Bones W/O Con; Complete Time: 14:00 bs3 10/02 12:26 Order name: Head C Spine Mpr Wo Con; Complete Time: 13:25 EDMS Administered Medications: 12:47 Drug: Tetanus-Diphtheria Toxoid IM Adult 0.5 ml {Coin Purse Assembler: ENJORE. Exp: ld1 10/10/2022. Lot #: [id number]. } Route: IM; Site: left deltoid; 13:27 Follow up: Response: No adverse reaction kr3 13:01 Drug: Acetaminophen PO 1000 mg Route: PO; kr3 13:27 Follow up: Response: No adverse reaction kr3 Disposition Summary: 10/02/22 13:45 Discharge Ordered Location: Home bs3 Problem: new bs3 Symptoms: have improved bs3 Condition: Stable bs3 Diagnosis - Fracture of nasal bones bs3 - Unspecified injury of head, initial encounter bs3 - Abrasion of nose bs3 Followup: bs3 - With: Private Physician - When: 5 - 6 days - Reason: Re-evaluation by your physician Discharge Instructions: - Discharge Summary Sheet bs3 - Head Injury, Adult bs3 - Nasal Fracture, [id number] bs3 Forms: - Medication Reconciliation Form bs3 - Thank You Letter bs3 - Antibiotic Education bs3 - Prescription Opioid Use bs3 Signatures: Dispatcher [employer] EDMS Holly Kruger RN RN Janie Barton RN RN ld1 Yani Pinto RN RN kr3 Barrett Acosta MD MD bs3 Corrections: (The following items were deleted from the chart) 12:24 12:22 Head Brain Wo Cont+CT.RAD.BRZ ordered. EDMS EDMS 12:25 12:22 C Spine Wo Con+CT.RAD.BRZ ordered. EDMS EDMS
--- NOTE | 2022-10-02 13:45 | ER ---
Nurse's Notes [facility] Name: Ketan Feng Age: 82 yrs Sex: Male : 1940 Arrival Date: 10/02/2022 Time: 12:18 Bed 2 Private MD: Diagnosis: Fracture of nasal bones;Unspecified injury of head, initial encounter;Abrasion of nose Presentation: 10/02 12:19 Chief complaint: EMS states: Mechanical fall from standing onto concrete, abrasions hb noted to face, c/o pain in head, face, and left wrist. Coronavirus screen: At this time, the client does not indicate any symptoms associated with coronavirus-19. Ebola Screen: No symptoms or risks identified at this time. Initial Sepsis Screen: Does the patient meet any 2 criteria? No. Patient's initial sepsis screen is negative. Does the patient have a suspected source of infection? No. Patient's initial sepsis screen is negative. Risk Assessment: Do you want to hurt yourself or someone else? Patient reports no desire to harm self or others. Onset of symptoms was October 02, 2022. 12:19 Method Of Arrival: EMS: [facility] hb 12:19 Acuity: GARY 3 hb 12:46 Care prior to arrival: None. Mechanism of Injury: No Mechanism of Injury. Trauma event ld1 details: Injury occurred in the [facility]. Historical: - Allergies: 12:24 Augmentin; hb 12:24 Codeine; hb 12:24 Iodine; hb 12:24 Phenobarbital; hb 12:24 Sulfa (Sulfonamide Antibiotics); hb 12:24 Synalgos-DC; hb - PMHx: 12:24 Atrial Fib; diabetes mellitus; kidney disease; High Cholesterol; CHF; Myocardial hb infarction; COPD; Gout; urinary retention; - PSHx: 12:24 defibrillator; knee replacement; Tonsillectomy; hb - Immunization history:: Last tetanus immunization: unknown. - Social history:: Smoking status: Patient denies any tobacco usage or history of. - Immunization history: Last tetanus immunization: unknown. Screenin:45 [facility] ED Fall Risk Assessment (Adult) History of falling in the last 3 months, ld1 including since admission No falls in past 3 months (0 pts). Abuse screen: Denies threats or abuse. Denies injuries from another. Nutritional screening: No deficits noted. Tuberculosis screening: No symptoms or risk factors identified. Primary Survey: 12:46 NO uncontrolled hemorrhage observed. Breathing/Chest: Spontaneous respiratory effort, ld1 equal unlabored respirations, breath sounds clear bilaterally, regular pattern, symmetrical chest rise and fall. Circulation: No external hemorrhage present. Regular and strong central pulse, skin warm/dry/normal color. Disability Client is alert. Exposure/Environment: All clothing and personal items were removed. Forensic evidence collection is not deemed to be indicated at this time. Items placed in patient belonging bag. Reassessment Breathing: Spontaneous respiratory effort, equal unlabored respirations, breath sounds clear bilaterally, regular pattern with symmetrical chest rise and fall. Circulation: No external hemorrhage noted. Regular and strong central pulse, skin warm/dry/normal color. Disability: Alert. Assessment: 12:45 General: Appears in no apparent distress. comfortable, Behavior is calm, cooperative, ld1 appropriate for age. Pain: Complains of pain in face Pain does not radiate. Pain currently is 8 out of 10 on a pain scale. Quality of pain is described as throbbing. Neuro: Level of Consciousness is awake, alert, obeys commands, Oriented to person, place, time, situation. Cardiovascular: Capillary refill < 3 seconds Patient's skin is warm and dry. Respiratory: Airway is patent Respiratory effort is even, unlabored. GI: Abdomen is flat, non-distended. : No signs and/or symptoms were reported regarding the genitourinary system. EENT: No signs and/or symptoms were reported regarding the EENT system. Derm: No signs and/or symptoms reported regarding the dermatologic system. Musculoskeletal: No signs and/or symptoms reported regarding the musculoskeletal system. Vital Signs: 12:19 Pulse 68; Resp 18; Temp 97.9; Pulse Ox 97% on R/A; Weight 107.5 kg; Height 5 ft. 8 in. hb ; Pain 10/10; 13:03 BP 119 / 76; Pulse 61; Resp 18; Pulse Ox 100% on R/A; ld1 14:05 BP 122 / 66; Pulse 69; Resp 18; Pulse Ox 100% on R/A; ld1 12:19 Body Mass Index 36.04 (107.50 kg, 172.72 cm) hb 12:19 Pain Scale: Adult hb [place] Coma Score: 12:46 Eye Response: spontaneous(4). Motor Response: obeys commands(6). Verbal Response: ld1 oriented(5). Total: 15. Trauma Score (Adult): 12:46 Eye Response: spontaneous(1); Verbal Response: oriented(1); Motor Response: obeys ld1 commands(2); Systolic BP: > 89 mm Hg(4); Respiratory Rate: 10 to 29 per min(4); [place] Score: 15; Trauma Score: 12 ED Course: 12:19 Patient arrived in ED. hb 12:20 Barrett Acosta MD is Attending Physician. bs3 12:24 Triage completed. hb 12:25 Arm band placed on. hb 12:28 Janie Barton, ASIA is Primary Nurse. ld1 12:42 CT Facial Bones W/O Con In Process Unspecified. EDMS 12:42 Head C Spine Mpr Wo Con In Process Unspecified. EDMS 12:45 Patient has correct armband on for positive identification. Placed in gown. Bed in low ld1 position. Call light in reach. Side rails up X2. hall monitor on. Pulse ox on. NIBP on. Door closed. Noise minimized. Warm blanket given. 12:47 Patient maintains SpO2 saturation greater than 95% on room air. ld1 13:45 Wrist Left (3 View) XRAY In Process Unspecified. EDMS 13:45 XRAY Chest (1 view) In Process Unspecified. EDMS 14:05 No provider procedures requiring assistance completed. Assist provider with bone marrow ld1 aspiration. Patient did not have IV access during this emergency room visit. 14:06 Thermoregulation: warm blanket given to patient. ld1 Administered Medications: 12:47 Drug: Tetanus-Diphtheria Toxoid IM Adult 0.5 ml {Insurance Verification Clerk: Zeetl. Exp: ld1 10/10/2022. Lot #: [id number]. } Route: IM; Site: left deltoid; 13:27 Follow up: Response: No adverse reaction kr3 13:01 Drug: Acetaminophen PO 1000 mg Route: PO; kr3 13:27 Follow up: Response: No adverse reaction kr3 Medication: 14:06 Vaccine Information Statement (VIS) provided today. Questions and/or concerns ld1 addressed. VIS edition date: October 02, 2022. Output: 12:46 Urine: 150ml (Voided); Total: 150ml. ld1 Outcome: 13:45 Discharge ordered by . bs3 14:06 Discharged to home ambulatory, with family. ld1 14:06 Condition: stable 14:06 Discharge instructions given to patient, family, Instructed on discharge instructions, follow up and referral plans. Demonstrated understanding of instructions, follow-up care. 14:06 Patient's length of stay was not longer than 2 hours. ld1 14:06 Patient left the ED. ld1 Signatures: Dispatcher [employer] EDHolly Baker RN RN Janie Barton RN RN ld1 Yani Pinto RN RN kr3 Barrett Acosta MD MD bs3
--- NOTE | 2022-10-02 13:54 | RAD REPORT ---
EXAM DESCRIPTION: RAD - Wrist Left 3 View - 10/02/2022 1:43 pm CLINICAL HISTORY: DEFORMITY COMPARISON: No comparisons FINDINGS/IMPRESSION: No acute fracture. Advanced degenerative changes with chronic subluxation at th e first carpometacarpal joint. Radiocarpal joint space narrowing and osteophytosis. Cystic changes in the capitate may be related degenerative findings. Chondrocalcinosis at the TFCC.
--- NOTE | 2022-10-02 13:55 | RAD REPORT ---
EXAM DESCRIPTION: RAD - Chest Single View - 10/02/2022 1:43 pm CLINICAL HISTORY: CHEST PAIN COMPARISON: Chest Single View dated 09/08/2022; Chest Single View dated 11/06/2021; Chest Single View dated 05/08/2019; Chest Pa And Lat (2 Views) dated 10/17/2018 FINDINGS: Lines: ICD. Lungs: No evidence of edema or pneumonia. Pleural: No significant pleural effusions or pneumothorax. Cardiac: Mild cardiomegaly. Mediastinum: Within normal limits. Bones: No acute fractures. Other: None IMPRESSION: No acute cardiopulmonary disease.
[2022-10-02 14:11] VITALS: TEMP 97.9
[2022-10-02 14:13] VITALS: O2SAT 100
[2022-10-02 14:15] VITALS: BP 122/66
== END 2022-10-02 14:06 | disposition home or self-care (01) ==
LOC: ER 12:18
DX: S02.2XXA Fracture of nasal bones, initial encounter for closed fracture (principal); S00.31XA Abrasion of nose, initial encounter; Z23 Encounter for immunization; J44.9 Chronic obstructive pulmonary disease, unspecified; I48.91 Unspecified atrial fibrillation; Z88.1 Allergy status to other antibiotic agents; Z88.2 Allergy status to sulfonamides; Z88.5 Allergy status to narcotic agent; Z88.8 Allergy status to other drugs, medicaments and biological substances; Z91.048 Other nonmedicinal substance allergy status; Z95.810 Presence of automatic (implantable) cardiac defibrillator
CPT/HCPCS: 70450; 70486; 71045; 72125; 76377; 90471; 90714; 99285